=== PATIENT | male | born 1950 | race Caucasian/White ===

== ENCOUNTER 2018-04-22 10:02 | Inpatient (IN) | payer MEDICARE ==
[2018-04-22] VITALS (7 sets, daily range): BP systolic 185–214; BP diastolic 96–101; PULSE 59–71; RESP 16–20; TEMP 97.5–98.6; O2SAT 92–100
[~2018-04-22] VITALS: Ht 175.3 cm; Wt 90.8 kg
[~2018-04-22 10:02] MED LIST: CLOP75 PO
[2018-04-22] MEDS ORDERED: MORPHINE SULFATE 4 MG/ML INJ IV PUSH PRN (10:30)
[2018-04-22] MEDS ORDERED: ACETAMINOPHEN 325 MG TAB PO PRN (10:30)
[2018-04-22] MEDS ORDERED: RESP: ALBUTEROL 2.5 MG/3 ML NEB (PRN) NEB (10:30)
[2018-04-22] MEDS ORDERED: AMLO5TAB2 PO (11:04)
[2018-04-22] MEDS ORDERED: LISI10TA3 PO (11:04)
[2018-04-22] MEDS ORDERED: PIOG30TA4 PO (11:04)
[2018-04-22] MEDS ORDERED: METF500T PO (11:04)
[2018-04-22] MEDS: SODIUM CHLOR 0.45% 1000 ML IV SCH ×2 (11:30→16:51)
[2018-04-22] MEDS ORDERED: ceFAZolin 2 GM PREMIX 50 ML IV SCH (11:30)
[2018-04-22 11:54] LABS: AUTOMATED NEUTROPHIL # 5.5 TH/MM3 (1.8-7.7); BASOPHIL % 0.3 % (0.0-2.0); EOSINOPHIL # 0.1 TH/MM3 (0-0.4); EOSINOPHIL % 1.3 % (0.0-4.0); HEMATOCRIT 44.6 % (39.0-51.0); HEMOGLOBIN 15.1 GM/DL (13.0-17.0); LYMPH % 12.3 % (9.0-44.0); LYMPHOCYTE # 0.9 TH/MM3 (1.0-4.8); MEAN CORPUSCULAR HEMOGLOBIN 30.6 PG (27.0-34.0); MEAN PLATELET VOLUME 7.5 FL (7.0-11.0); MONO % 10.1 % (0.0-8.0); MONOCYTE # 0.7 TH/MM3 (0-0.9); PLATELET COUNT 186 TH/MM3 (150-450); RED BLOOD COUNT 4.95 MIL/MM3 (4.50-5.90); RED CELL DISTRIBUTION WIDTH 13.4 % (11.6-17.2); WHITE BLOOD COUNT 7.3 TH/MM3 (4.0-11.0)
[2018-04-22 12:06] LABS: PROTHROMBIN TIME - PATIENT 10.4 SEC (9.8-11.6)
[2018-04-22 12:17] LABS: BICARBONATE 27.8 MEQ/L (21.0-32.0); CALCIUM 8.4 MG/DL (8.5-10.1); CREATININE 0.71 MG/DL (0.60-1.30)
[2018-04-22] MEDS ORDERED: MIDAZOLAM HCL 2 MG/2 ML VIAL ONE (12:47)
--- NOTE | 2018-04-22 13:10 | HHI.HP ---
[facility] Service Neurosurgery Primary Care Physician Candace Abdullahi D.O. History of Present Illness Mr. Alvarez is a 67 year old male who was previously evaluated in neurosurgical evaluation at the request of Neurologist Dr. Yuri Jenkins for evaluation of Normal Pressure Hydrocephalus. Mr. Alvarez suffers from poor gait and balance. He is a chronic heavy drinker and drinks 8-12 beers daily. However he was previously walking well without difficulties despite his heavy drinking. He denies headaches, vomiting, vision changes, seizures. His MRI showed evidence of hydrocephalus. Mr. 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 He denies currently shoulder pain. MRI Brain from [facility] 02/13/18 was reviewed and showed ventricular dilation disproportionate to the extra-axial space suggestive of NPH. He presents today for placement of lumbar drain. He apparently also suffered a fall, he has left periorbital ecchymoses. He doesn't remember how he fell. Review of Systems Respiratory: DENIES: Apneas, Hemoptysis, Shortness of breath Cardiovascular: DENIES: Chest pain Gastrointestinal: DENIES: Abdominal pain, Nausea, Vomiting Neurologic: COMPLAINS OF: Abnormal gait, Localized weakness, Poor Balance, DENIES: Seizures Past Family Social History Allergies: Coded Allergies: No Known Allergies (Verified Allergy, Mild, 09/14/09) Past Medical History Coronary Artery Disease History of prior Myocardial Infarction Diabetes Chronic right hand contracture Etoh abuse Past Surgical History CABG 2008 Reported Medications amLODIPine 5 mg tablet lisinopril 10 mg tablet metFORMIN 500 mg tablet pioglitazone 30 mg tablet Active Ordered Medications Current Medications Medications (Trade) Dose Ordered Sig/Roberto Route PRN Reason Start Time Stop Time Status Last Admin Dose Admin Docusate Sodium (Colace) 100 mg BID PO 04/22/18 21:00 Pantoprazole Sodium (Protonix) 40 mg DAILY PO 04/23/18 09:00 Acetaminophen/ Hydrocodone Bitart ([place] 10-325 Mg) 1 tab Q4H PRN PO PAIN SCALE 1 TO 5 04/22/18 10:30 Morphine Sulfate (Morphine Inj) 2 mg Q2H PRN IV PUSH PAIN SCALE 1 TO 6 04/22/18 10:30 Acetaminophen (Tylenol) 650 mg Q4H PRN PO TEMPERATURE > 101.5 F 04/22/18 10:30 Albuterol Sulfate (Albuterol Neb) 2.5 mg Q4HR NEB PRN NEB WHEEZING 04/22/18 10:30 Sodium Chloride 1,000 ml @ 30 mls/hr Q24H IV 04/22/18 11:30 Cefazolin Sodium/ Dextrose 50 ml @ 100 mls/hr MAGNETIC TESTING TECHNICIAN IV 04/22/18 11:30 04/25/18 11:29 Family History reviewed, does not contribute to current medical problem Social History Heavy Alcohol Use, 8-12 beers daily Never smoker No illicit drug abuse Physical Exam Vital Signs Vital Signs Date Time Temp Pulse Resp B/P (MAP) Pulse Ox O2 Delivery O2 Flow Rate FiO2 04/22/18 11:32 92 Room Air 04/22/18 11:32 98.0 66 18 185/97 (126) 92 Physical Exam Patient is a 67-year-old male. General: Mr. Alvarez is in no obvious distress during examination. Neuro: Awake, alert and oriented to person, place, not to time. Speech is clear. Lumbar drain in place, clear CSF in reservoir. Cranial nerve examination: pupils equal, round, and reactive to light. Extra- ocular movements are intact with normal convergence. Facial motor and sensory function are normal and symmetrical. Gross hearing is intact, bilaterally, to finger rub. The uvula is midline and elevates symmetrically with the soft palate. Sternocleidomastoid and deltoid muscles have normal and symmetrical strength. Other cranial nerves are intact. HEENT: Normocephalic, atraumatic. Left periorbital bruising. Gross hearing intact bilaterally. Nonicteric sclera. Neck: soft, supple Musculoskeletal: Lower extremity peripheral edema. Right hand chronic contracture. 5/5 in all muscle groups of both upper extremities including deltoid, biceps, triceps and left chef instructor, 4/5 right chef instructor limited exam due to contracture, minimal right finger movements. In the lower extremities, strength is 5/5 in both iliopsoas, quadriceps, hamstrings, tibialis anterior, gastrocnemius. Sensory examination is intact light touch in both the upper and lower extremities Deep tendon reflexes are 1+ biceps, triceps, and brachioradialis, bilaterally, in the upper extremities. In the lower extremities, the patellar and Achilles are 1+, bilaterally. There is a bilateral plantar flexion response. Hoffmanns sign is negative. There is no clonus. Cerebellar: intact finger to nose bilaterally Gait: when examined in clinic gait is broad based, loss of heel strikes, slight bent forward posture, ataxic. Lungs: clear, nonlabored breathing, no wheezing Heart: regular rate and rhythm Skin: warm and dry, no cyanosis. Hyperpigmentation in lower legs. Laboratory Laboratory Tests Test 04/22/18 11:30 White Blood Count 7.3 Red Blood Count 4.95 Hemoglobin 15.1 Hematocrit 44.6 Mean Corpuscular Volume 90.0 Mean Corpuscular Hemoglobin 30.6 Mean Corpuscular Hemoglobin Concent 34.0 Red Cell Distribution Width 13.4 Platelet Count 186 Mean Platelet Volume 7.5 Neutrophils (%) (Auto) 76.0 Lymphocytes (%) (Auto) 12.3 Monocytes (%) (Auto) 10.1 Eosinophils (%) (Auto) 1.3 Basophils (%) (Auto) 0.3 Neutrophils # (Auto) 5.5 Lymphocytes # (Auto) 0.9 Monocytes # (Auto) 0.7 Eosinophils # (Auto) 0.1 Basophils # (Auto) 0.0 CBC Comment DIFF FINAL Differential Comment Prothrombin Time 10.4 Prothromb Time International Ratio 1.0 Activated Partial Thromboplast Time 26.7 Blood Urea Nitrogen 5 Creatinine 0.71 Random Glucose 134 Calcium Level 8.4 Sodium Level 134 Potassium Level 4.0 Chloride Level 99 Carbon Dioxide Level 27.8 Anion Gap 7 Estimat Glomerular Filtration Rate 110 Result Diagram: 04/22/18 1130 04/22/18 1130 Caprini VTE Risk Assessment Caprini VTE Risk Assessment: No/Low Risk (score <= 1) VTE Pharm Contraindication: Epidural catheter Caprini Risk Assessment Model Point Value = 1 Point Value = 2 Point Value = 3 Point Value = 5 Age 41-60 Minor surgery BMI > 25 kg/m2 Swollen legs Varicose veins or History of unexplained or recurrent spontaneous Oral contraceptives or hormone replacement Sepsis (< 1 month) Serious lung disease, including pneumonia (< 1 month) Abnormal pulmonary function Acute myocardial infarction Congestive heart failure (< 1 month) History of inflammatory bowel disease Medical patient at bed rest Age 61-74 Arthroscopic surgery Major open surgery (> 45 min) Laparoscopic surgery (> 45 min) Malignancy Confined to bed (> 72 hours) Immobilizing plaster cast Central venous access Age >= 75 History of VTE Family history of VTE Factor V Leiden Prothrombin [id number] Lupus anticoagulant Anticardiolipin antibodies Elevated serum homocysteine Heparin-induced thrombocytopenia Other congenital or acquired thrombophilia Stroke (< 1 month) Elective arthroplasty Hip, pelvis, or leg fracture Acute spinal cord injury (< 1 month) Prophylaxis Regimen Total Risk Factor Score Risk Level Prophylaxis Regimen 0-1 Low Early ambulation 2 Moderate Order ONE of the following: *Sequential Compression Device (SCD) *Heparin 5000 units SQ BID 3-4 Higher Order ONE of the following medications: *Heparin 5000 units SQ TID *Enoxaparin/Lovenox 40 mg SQ daily (WT < 150 kg, CrCl > 30 mL/min) *Enoxaparin/Lovenox 30 mg SQ daily (WT < 150 kg, CrCl > 10-29 mL/min) *Enoxaparin/Lovenox 30 mg SQ BID (WT < 150 kg, CrCl > 30 mL/min) AND/OR *Sequential Compression Device (SCD) 5 or more Highest Order ONE of the following medications: *Heparin 5000 units SQ TID (Preferred with Epidurals) *Enoxaparin/Lovenox 40 mg SQ daily (WT < 150 kg, CrCl > 30 mL/min) *Enoxaparin/Lovenox 30 mg SQ daily (WT < 150 kg, CrCl > 10-29 mL/min) *Enoxaparin/Lovenox 30 mg SQ BID (WT < 150 kg, CrCl > 30 mL/min) AND *Sequential Compression Device (SCD) Assessment and Plan Assessment and Plan NPH: Mr. Alvarez presents today for trial of lumbar drain with CSF drainage. PT gait evaluation prior to drain placement. He will be evaluated for any improvement in his gait and/or NPH symptoms. PT daily gait evaluation Chronic Etoh use, start Thiamine, FA, MV. Provide 1 beer with meals. Prophylaxis: Protonix for GI prophylaxis. DVT prophylaxis: SCDs and TEDs. Non chemical prophylaxis contraindicated due to epidural catheter. Respiratory: IS every hour, breathing treatments with nebulizers prn Nutrition: Heart Healthy Diet Diabetes: Holding oral medications. SS with insulin. Will defer further management to Medicine. Hypertension: resume home meds Amlodipine and Lisinopril. Monitor blood pressure. Maryse Gutiérrez Apr 22, 2018 13:10
[2018-04-22] MEDS ORDERED: GLUCAGON 1 MG/ML VIAL OTHER PRN (13:15)
[2018-04-22] MEDS ORDERED: DEXTROSE 50% IN WATER 50 ML VIAL(D50) IV PUSH PRN (13:15)
[2018-04-22 13:55] LABS: ALBUMIN 3.3 GM/DL (3.4-5.0); AST (GOT) 25 U/L (15-37); BICARBONATE 25.7 MEQ/L (21.0-32.0); BLOOD UREA NITROGEN 5 MG/DL (7-18); CHLORIDE 98 MEQ/L (98-107); CREATININE 0.74 MG/DL (0.60-1.30); GLOMERULAR FILTRATION RATE 105 ML/MIN (>89); GLUCOSE,RANDOM 134 MG/DL (74-106); SODIUM (NA) 133 MEQ/L (136-145)
[2018-04-22 13:56] LABS: ALT (GPT) 24 U/L (12-78)
[2018-04-22 13:58] LABS: ALKALINE PHOSPHATASE 80 U/L (45-117); TOTAL BILIRUBIN ADULT 0.9 MG/DL (0.2-1.0); TOTAL PROTEIN 7.1 GM/DL (6.4-8.2)
--- NOTE | 2018-04-22 14:23 | PD.RAD ---
Post Procedure Progress Note Procedure Date: Apr 22, 2018 Supervising Radiologist: Lucio Tse Proceduralist/Assist: Ana Mcbride RT(R)(CV) Anesthesia: Conscious Sedation Plan of Activity Patient to Unit: ROPU Patient Condition: Good See PACS Report for procedural detail/treatment Lucio Tse MD Apr 22, 2018 14:23
[2018-04-22] MEDS ORDERED: ONDANSETRON HCL 4 MG/2 ML VIAL ONE (14:29)
[2018-04-22] MEDS ORDERED: ENALAPRILAT 2.5 MG/2 ML VIAL ONE (14:33)
[2018-04-22 14:56] LABS: TOTAL PROTEIN,CSF 61.2 MG/DL (15.0-45.0)
--- NOTE | 2018-04-22 15:05 | MB ---
cc: Yvette Wang MD DATE: 04/22/2018 DATE OF : 1950 REASON FOR CONSULTATION: NPH. HISTORY OF PRESENT ILLNESS: This is a 67-year-old man seen by my partner, Dr. Jenkins, for NPH evaluation, sent to Neurosurgery for evaluation. He is status post LP drain by Interventional Radiology. He was initially assessed for poor gait and balance, has been having falls. MRI of the brain per reports showed that he had what looked like hydrocephalus. He does have a history of heavy drinking, 8-12 beers a day, compliance issues. Unknown as far as his other medications. He was seen by PT pre-drain and now he is just back in the recovery area waiting for his room. I believe he will be going to room 1525. PAST MEDICAL HISTORY: History of heart disease, ID, diabetes, chronic right hand contracture, ethanol abuse. He has had a bypass in 2008. HOME MEDICINES: 1. Amlodipine 5 mg. 2. Lisinopril 10 mg. 3. Metformin 500 mg. 4. Pioglitazone 30 mg. PHYSICAL EXAMINATION: GENERAL: He is sleepy, arousable. VITAL SIGNS: Blood pressure 185/97, temperature 98, pulse 66. NEUROLOGICAL EXAMINATION: He is oriented to himself, knew he was at [place] after some coaxing, but thought he was in a room in a doctor's office. His speech is fluent otherwise. He does have a left ecchymotic area over his eye from a fall, but his extraocular muscles are intact. Motor-curtis he moves everything, but strength testing is limited due to recent drain placed. DTRs 1+. Toes withdrawal. Gait I am going to defer to PT at this point in time. IMPRESSION. Normal pressure hydrocephalus status post lumbar drain. Recommend daily physical therapy assessment. If he improves and his gait is near normal, at that point certainly the shunt will be placed. I would restart his antihypertensive medicines, watch him for withdrawal. Thiamine, folic acid, vitamins certainly but he may need Ativan or Librium. Thank you for asking me to see the patient. Please call with any questions or concerns. He will followup as an outpatient with Dr. Jenkins. MD SULEMAN Pereira/CHARISSA , 02:32 PM , 03:04 PM
[2018-04-22] MEDS ORDERED: LORazepam 1 MG TAB PO PRN (15:15)
[2018-04-22] MEDS ORDERED: LORazepam 2 MG TAB PO PRN (15:15)
[2018-04-22] MEDS ORDERED: FLUMAZENIL 0.5 MG/5 ML VIAL IV PUSH PRN (15:15)
[2018-04-22] MEDS ORDERED: ONDANSETRON HCL 4 MG/2 ML VIAL IV PUSH ONE (15:15)
[2018-04-22] MEDS ORDERED: LORazepam 2 MG/ML VIAL IV PUSH PRN ×4 (15:15)
[2018-04-22] MEDS ORDERED: cloNIDine HCL 0.1 MG TAB PO ONE (15:15)
[2018-04-22] MEDS ORDERED: ENALAPRILAT 1.25 MG/ML VIAL IV PUSH ONE (15:15)
[2018-04-22 15:20] LABS: BILIRUBIN, URINE NEG (NEG); BLOOD, URINE NEG (NEG); GLUCOSE,URINE NEG (NEG); KETONE, URINE NEG (NEG); NITRITE,URINE NEG (NEG); URINE COLOR YELLOW (YELLW/STRAW); URINE LEUKOCYTE ESTERASE NEG (NEG)
--- NOTE | 2018-04-22 15:23 | PD.CONS ---
[facility] Request[facility] By Maryse Gutiérrez Reason for Consult Medical management Primary Care Physician Candace Abdullahi D.O. Diagnoses: (1) Hypertension (2) Diabetes mellitus (3) Hyponatremia (4) NPH (normal pressure hydrocephalus) History of Present Illness The patient is a 67-year-old male recently diagnosed with normal pressure hydrocephalus who presented today for lumbar drain placement per neurosurgery request. He reports urinary incontinence. He denies headache or vision changes. He denies chest pain or dyspnea. He states that he apparently fell 2 days ago. He states that he woke up with bruising on the left side of his face. He does not know what happened. He reports nausea, but denies vomiting. Review of Systems Constitutional: DENIES: Fever, Chills, Night Sweats Eyes: DENIES: Blurred vision, Vision loss Ears, nose, mouth, throat: DENIES: Hearing loss Respiratory: DENIES: Cough, Wheezing, Sputum production, Shortness of breath Cardiovascular: DENIES: Chest pain, Palpitations, Dyspnea on Exertion, Lower Extremity Edema Gastrointestinal: COMPLAINS OF: Nausea, DENIES: Abdominal pain, Constipation, Diarrhea, Vomiting Genitourinary: COMPLAINS OF: Urinary incontinence, DENIES: Urinary frequency, Urgency, Hematuria, Dysuria, Nocturia Musculoskeletal: DENIES: Joint pain, Muscle aches Integumentary: DENIES: Pruritus, Rash Hematologic/lymphatic: DENIES: Bruising Neurologic: DENIES: Headache Past Family Social History Allergies: Coded Allergies: No Known Allergies (Verified Allergy, Mild, 09/14/09) Past Medical History Diabetes mellitus Hypertension Coronary artery disease Past Surgical History CABG Tonsillectomy Reported Medications The patient states that he has not been taking any of his medications consistently. He states that it has been quite a while since he has taken any medications. He is supposed to be taking amlodipine 5 mg daily, lisinopril 10 mg daily, metformin 500 mg twice daily, and pioglitazone 30 mg daily. Family History The patient denies significant family medical history. Social History Drinks "at least a 12 pack a day". Denies tobacco or illicit drug use. Physical Exam Vital Signs Vital Signs Date Time Temp Pulse Resp B/P (MAP) Pulse Ox O2 Delivery O2 Flow Rate FiO2 04/22/18 11:32 92 Room Air 04/22/18 11:32 98.0 66 18 185/97 (126) 92 Physical Exam GENERAL: This is a well-nourished, well-developed patient, in no apparent distress. SKIN: No rashes, ecchymoses or lesions. Cool and dry. HEAD: Atraumatic. Normocephalic. No temporal or scalp tenderness. EYES: Pupils equal round and reactive. Extraocular motions intact. No scleral icterus. No injection or drainage. ENT: Nose without bleeding, purulent drainage or septal hematoma. Throat without erythema, tonsillar hypertrophy or exudate. Uvula midline. Airway patent. NECK: Trachea midline. No JVD or lymphadenopathy. Supple, nontender, no meningeal signs. CARDIOVASCULAR: Regular rate and rhythm without murmurs, gallops, or rubs. RESPIRATORY: Clear to auscultation. Breath sounds equal bilaterally. No wheezes , rales, or rhonchi. GASTROINTESTINAL: Abdomen soft, non-tender, nondistended. No hepato-splenomegaly , or palpable masses. No guarding. MUSCULOSKELETAL: Extremities without clubbing, cyanosis, or edema. No joint tenderness, effusion, or edema noted. No calf tenderness. Negative Homans sign bilaterally. NEUROLOGICAL: Awake and alert. Cranial nerves II through XII intact. Motor and sensory grossly within normal limits. Five out of 5 muscle strength in all muscle groups. Normal speech. Laboratory Laboratory Tests Test 04/22/18 11:30 04/22/18 13:45 04/22/18 14:00 White Blood Count 7.3 Red Blood Count 4.95 Hemoglobin 15.1 Hematocrit 44.6 Mean Corpuscular Volume 90.0 Mean Corpuscular Hemoglobin 30.6 Mean Corpuscular Hemoglobin Concent 34.0 Red Cell Distribution Width 13.4 Platelet Count 186 Mean Platelet Volume 7.5 Neutrophils (%) (Auto) 76.0 Lymphocytes (%) (Auto) 12.3 Monocytes (%) (Auto) 10.1 Eosinophils (%) (Auto) 1.3 Basophils (%) (Auto) 0.3 Neutrophils # (Auto) 5.5 Lymphocytes # (Auto) 0.9 Monocytes # (Auto) 0.7 Eosinophils # (Auto) 0.1 Basophils # (Auto) 0.0 CBC Comment DIFF FINAL Differential Comment Prothrombin Time 10.4 Prothromb Time International Ratio 1.0 Activated Partial Thromboplast Time 26.7 Blood Urea Nitrogen 5 Creatinine 0.74 Random Glucose 134 Total Protein 7.1 Albumin 3.3 Calcium Level 9.0 Alkaline Phosphatase 80 Aspartate Amino Transf (AST/SGOT) 25 Alanine Aminotransferase (ALT/SGPT) 24 Total Bilirubin 0.9 Sodium Level 133 Potassium Level 4.1 Chloride Level 98 Carbon Dioxide Level 25.7 Anion Gap 9 Estimat Glomerular Filtration Rate 105 CSF Glucose 72 CSF Total Protein 61.2 Date/Time Source Procedure Growth Status 04/22/18 13:45 Cerebral Spinal Fluid Lumbar Puncture Gram Stain Pending Received 04/22/18 13:45 Cerebral Spinal Fluid Lumbar Puncture CSF Culture Pending Received Result Diagram: 04/22/18 1130 04/22/18 1130 Assessment and Plan Assessment and Plan 1. Normal pressure hydrocephalus: Status post lumbar drain placement. Management per neurosurgery. Neurology consulted. Continue physical therapy. 2. Alcohol abuse: Concern for withdrawal. [facility] protocol. Thiamine, folic acid , multivitamin. 3. Hypertension: Poorly controlled. Blood pressure may be elevated secondary to alcohol withdrawal. He states that he has been noncompliant with his medications. Restart amlodipine, lisinopril. Vasotec and clonidine as needed. 4. Coronary artery disease: Currently asymptomatic. Reportedly had CABG 1 year ago. Not on medications The patient has been noncompliant. 5. Recent fall, head injury: Patient states that he does not recall what happened, but woke up on the floor with periorbital bruising. Check head CT. 6. Mild hyponatremia: Likely secondary to chronic alcohol abuse. Monitor labs. 7. DVT prophylaxis: SCDs, BANDAR hose. Avoid chemical prophylaxis secondary to lumbar drain placement. Armando Oscar MD Apr 22, 2018 15:23
[2018-04-22 15:28] LABS: SUPERNATE COLOR TUBE #1 CLEAR (CLEAR); VOLUME TUBE # 1 1.8 ML
[2018-04-22 15:42] LABS: CSF LYMPHOCYTES 93 %; CSF NEUTROPHILS 7 %
[2018-04-22 15:43] LABS: RBC TUBE #4 217 /MM3; WBC TUBE #4 1 /MM3 (0-10)
[2018-04-22] MEDS ORDERED: amLODIPine BESYLATE 5 MG TAB PO ONE (16:00)
--- NOTE | 2018-04-22 16:46 | RADRPT ---
EXAM DATE: 04/22/2018 2:44 PM EDT AGE/SEX: 67 years / Male INDICATIONS: Patient with history of normal pressure hydrocephalus in need of lumbar drain placement . CLINICAL DATA: This is the patient's initial encounter. Patient reports that signs and symptoms have been present for > 1 year and indicates a pain score of 0/10. Location: , Laterality: MEDICAL/SURGICAL HISTORY: Hypertension. Diabetes. ETHD.CAD.RT hand contractive.Shoulder injury .[place]. CABG. RT knee surgery. COMPARISON: No prior exams available for comparison. FLUORO TIME (min): 1.25 IMAGE SERIES: 5 ACCESS SITE: L3-4 SEDATION TIME (min): 30 LUMBAR PUNCTURE TIME: 1345 hours FLUID: Total volume of 11 cc of clear fluid was removed. Fluid was sent to lab for ordered studies. MEDICATION(S): 2mg midazolam (Versed) IV 100mcg fentanyl (Sublimaze) IV DEVICE(S): 5 Persian lumbar drain catheter . . PROCEDURE: 1. Fluoroscopically guided lumbar drain placement. 2. Conscious sedation with continuous EKG and oximetry monitoring. The risks, benefits and alternatives to the procedure were explained and verbal and written consent w as obtained. The site was prepped in sterile fashion. Full sterile technique was used, including ca p, mask, sterile gloves and gown and a large sterile sheet. Hand hygiene and 2% chlorhexidine and/or betadine/alcohol prep was utilized per protocol for cutaneous antisepsis. The skin and subcutaneous tissues were infiltrated with local anesthetic solution. With fluoroscopic guidance the lumbar thecal sac was punctured with a 14 gauge Touhy needle and a lum bar drain was placed with its tip at the level as described above and the catheter was sutured in jose angel ce. CSF was identified returning from the catheter at the termination of the procedure. Conscious sedation was performed with the prescribed dosages and duration as above in the presence of an independent trained radiology nurse to assist in the monitoring of the patient. EKG and oximetry remained stable throughout the procedure. The patient tolerated the procedure well and there were n o complications. The patient was sent to post anesthesia recovery in stable condition. CONCLUSION: 1. Uncomplicated lumbar drain placement as above. Electronically signed by: Lucio Tse MD 04/22/2018 4:45 PM EDT
[2018-04-22] MEDS: THIAMINE HCL 100 MG TAB PO SCH (16:51)
[2018-04-22] MEDS: MULTIVITAMINS/MINERALS THERAPEUTIC TAB PO SCH (16:51)
[2018-04-22] MEDS: FOLIC ACID 1 MG TAB PO SCH (16:51)
[2018-04-22] MEDS: ENALAPRILAT 1.25 MG/ML VIAL IV PUSH PRN (20:45)
[2018-04-22] MEDS: DOCUSATE SODIUM 100 MG CAP PO SCH (20:45)
[2018-04-22] MEDS: ACETAMINOPHEN/HYDROcodone 325 MG/10 MG TAB PO PRN (20:45)
[2018-04-23] VITALS (7 sets, daily range): BP systolic 122–207; BP diastolic 67–111; PULSE 57–73; RESP 16–18; TEMP 97.3–98.6; O2SAT 96–99
[2018-04-23] MEDS ORDERED: cloNIDine HCL 0.1 MG TAB PO ONE (01:30)
[2018-04-23] MEDS: ACETAMINOPHEN/HYDROcodone 325 MG/10 MG TAB PO PRN ×3 (01:43→16:41)
[2018-04-23] MEDS ORDERED: PROCHLORPERAZINE INJ 10 MG/2 ML VIAL IV PUSH PRN (02:45)
[2018-04-23] MEDS: ENALAPRILAT 1.25 MG/ML VIAL IV PUSH PRN ×2 (03:45→19:56)
[2018-04-23] MEDS: MULTIVITAMINS/MINERALS THERAPEUTIC TAB PO SCH (08:33)
[2018-04-23] MEDS: LISINOPRIL 10 MG TAB PO SCH (08:33)
[2018-04-23] MEDS: PANTOPRAZOLE SOD 40 MG DELAYED RELEASE TAB PO SCH (08:33)
[2018-04-23] MEDS: FOLIC ACID 1 MG TAB PO SCH (08:33)
[2018-04-23] MEDS: DOCUSATE SODIUM 100 MG CAP PO SCH ×2 (08:33→20:48)
[2018-04-23] MEDS: THIAMINE HCL 100 MG TAB PO SCH (08:34)
[2018-04-23] MEDS: amLODIPine BESYLATE 5 MG TAB PO SCH (08:34)
[2018-04-23] MEDS: INSULIN ASPART SUPPLEMENTAL SCALE SQ SCH ×3 (12:32→20:49)
--- NOTE | 2018-04-23 13:03 | HHI.PR ---
Subjective Remarks Follow up hypertension, diabetes. The patient states that his back is sore, but has no other complaints at this time. Denies headache, vision changes, chest pain, dyspnea. Nausea has resolved. Objective Vitals Vital Signs Date Time Temp Pulse Resp B/P (MAP) Pulse Ox O2 Delivery O2 Flow Rate FiO2 04/23/18 11:58 98.0 63 18 122/67 (85) 98 04/23/18 08:00 98.4 57 16 160/79 (106) 96 04/23/18 04:49 66 138/71 (93) 04/23/18 04:00 97.3 67 18 195/111 (139) 97 04/23/18 00:12 98.0 73 18 207/98 (134) 98 04/22/18 20:00 98.6 70 18 213/100 (137) 94 04/22/18 17:15 97.5 62 20 198/98 (131) 100 04/22/18 15:25 63 16 205/101 (135) 97 04/22/18 14:55 59 18 192/99 (130) 97 04/22/18 14:25 65 18 214/97 (136) 95 04/22/18 14:10 97.6 71 16 208/96 (133) 96 I/O 04/22/18 04/22/18 04/22/18 04/23/18 04/23/18 04/23/18 07:00 15:00 23:00 07:00 15:00 23:00 Intake Total 240 ml Output Total 915 ml 1280 ml Balance -915 ml -1040 ml Intake Oral 240 ml Output Urine Total 875 ml 1200 ml Drainage Total 40 ml 80 ml Result Diagram: 04/22/18 1130 04/22/18 1130 Imaging Last Impressions Lumbar Puncture Fluoroscopy 04/22/18 0000 Signed Impressions: CONCLUSION: 1. Uncomplicated lumbar drain placement as above. Objective Remarks General: No acute distress. HEENT: Left-sided periorbital ecchymosis. Heart: Regular rate and rhythm. No murmur. Lungs: Clear to auscultation bilaterally. No wheezes, rales, or rhonchi. Breathing is nonlabored. Abdomen: Soft, nontender, nondistended. Extremities: No lower extremity edema. Psych: Alert and oriented. Neuro: Normal speech. No focal deficits noted. Procedures 04/22/18 lumbar drain placement Urinary Catheter: Yes Assessment to: Continue Ayon insert reason: Surgical/Invasive Proced Date of Insertion: Apr 22, 2018 Vascular Central Line Catheter: No A/P Problem List: (1) Hypertension ICD Code: I10 - Essential (primary) hypertension (2) Diabetes mellitus ICD Code: E11.9 - Type 2 diabetes mellitus without complications (3) Hyponatremia ICD Code: E87.1 - Hypo-osmolality and hyponatremia (4) NPH (normal pressure hydrocephalus) ICD Code: G91.2 - (Idiopathic) normal pressure hydrocephalus Assessment and Plan 1. Normal pressure hydrocephalus: Status post lumbar drain placement. Management per neurosurgery. Neurology consulted. Continue physical therapy. 2. Alcohol abuse: No signs of withdrawal at this time. [facility] protocol. Thiamine, folic acid, multivitamin. One beer with each tray. 3. Hypertension: Control improved. He states that he has been noncompliant with his medications. Continue amlodipine, lisinopril. Vasotec and clonidine as needed. 4. Coronary artery disease: Currently asymptomatic. Reportedly had CABG 1 year ago. Not on medications The patient has been noncompliant. 5. Recent fall, head injury: Patient states that he does not recall what happened, but woke up on the floor with periorbital bruising. Check head CT. 6. Mild hyponatremia: Likely secondary to chronic alcohol abuse. 7. Diabetes mellitus: Monitor Accu-Cheks and cover with sliding scale insulin. Metformin, pioglitazone on hold. 8. DVT prophylaxis: SCDs, BANDAR moy. Avoid chemical prophylaxis secondary to lumbar drain placement. Armando Oscar MD Apr 23, 2018 13:03
--- NOTE | 2018-04-23 16:59 | HHI.NSPN ---
(Maryse Gutiérrez) Note Status Status: Progress Note (Maryse Gutiérrez) Interval History Interval History Mr. Alvarez is a 67 year old male who was previously evaluated in neurosurgical evaluation at the request of Neurologist Dr. Yuri Jenkins for evaluation of Normal Pressure Hydrocephalus. Mr. Alvarez suffers from poor gait and balance. He is a chronic heavy drinker and drinks 8-12 beers daily. However he was previously walking well without difficulties despite his heavy drinking. He denies headaches, vomiting, vision changes, seizures. His MRI showed evidence of hydrocephalus. Mr. 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 He denies currently shoulder pain. MRI Brain from [facility] 02/13/18 was reviewed and showed ventricular dilation disproportionate to the extra-axial space suggestive of NPH. He presents today for placement of lumbar drain. He apparently also suffered a fall, he has left periorbital ecchymoses. He doesn't remember how he fell. 04/23: currently flat being drained, nursing reports confused overnight. awaiting PT evaluation. (Maryse Gutiérrez) Labs, Micro, & Vital Signs Results Date Time Temp Pulse Resp B/P (MAP) Pulse Ox O2 Delivery O2 Flow Rate FiO2 04/23/18 11:58 98.0 63 18 122/67 (85) 98 04/23/18 08:00 98.4 57 16 160/79 (106) 96 04/23/18 04:49 66 138/71 (93) 04/23/18 04:00 97.3 67 18 195/111 (139) 97 04/23/18 00:12 98.0 73 18 207/98 (134) 98 04/22/18 20:00 98.6 70 18 213/100 (137) 94 04/22/18 17:15 97.5 62 20 198/98 (131) 100 Constitutional Vital Signs Date Time Temp Pulse Resp B/P (MAP) Pulse Ox O2 Delivery O2 Flow Rate FiO2 04/23/18 11:58 98.0 63 18 122/67 (85) 98 04/23/18 08:00 98.4 57 16 160/79 (106) 96 04/23/18 04:49 66 138/71 (93) 04/23/18 04:00 97.3 67 18 195/111 (139) 97 04/23/18 00:12 98.0 73 18 207/98 (134) 98 04/22/18 20:00 98.6 70 18 213/100 (137) 94 04/22/18 17:15 97.5 62 20 198/98 (131) 100 (Maryse Gutiérrez) Review of Systems Constitutional: DENIES: Fever, Chills Neurologic: DENIES: Headache (Maryse Gutiérrez) Physical Exam Patient is a 67-year-old male. Currently flat in bed being drained. General: Mr. Alvarez is in no obvious distress during examination. Neuro: Awake, alert and oriented to person, place, not to time. Speech is clear. Lumbar drain in place, clear CSF in reservoir. Cranial nerve examination: pupils equal, round, and reactive to light. Extra- ocular movements are intact with normal convergence. Facial motor are normal and symmetrical. Other cranial nerves are intact. HEENT: Normocephalic, atraumatic. Left periorbital bruising. Gross hearing intact bilaterally. Nonicteric sclera. Neck: soft, supple Musculoskeletal: Lower extremity peripheral edema. Right hand chronic contracture. 5/5 in all muscle groups of both upper extremities including deltoid, biceps, triceps and left instructor product inspection, 4/5 right instructor product inspection limited exam due to contracture, minimal right finger movements. In the lower extremities, strength is 5/5. Cerebellar: intact finger to nose bilaterally Lungs: clear, nonlabored breathing, no wheezing Heart: regular rate and rhythm (Maryse Gutiérrez) General: Mr. Alvarez is in no obvious distress during examination. Neuro: Awake, alert and oriented to person, place, not to time. Speech is clear. Lumbar drain in place, clear CSF in reservoir. Cranial nerve examination: pupils equal, round, and reactive to light. Extra- ocular movements are intact with normal convergence. Facial motor are normal and symmetrical. Other cranial nerves are intact. HEENT: Normocephalic, atraumatic. Left periorbital bruising. Gross hearing intact bilaterally. Nonicteric sclera. Neck: soft, supple Musculoskeletal: Lower extremity peripheral edema. Right hand chronic contracture. 5/5 in all muscle groups of both upper extremities including deltoid, biceps, triceps and left instructor product inspection, 4/5 right instructor product inspection limited exam due to contracture, minimal right finger movements. In the lower extremities, strength is 5/5. Cerebellar: intact finger to nose bilaterally Lungs: clear, nonlabored breathing, no wheezing Heart: regular rate and rhythm (Ruben Hudson MD) Medications Current Medications Current Medications Medications (Trade) Dose Ordered Sig/Roberto Route PRN Reason Start Time Stop Time Status Last Admin Dose Admin Docusate Sodium (Colace) 100 mg BID PO 04/22/18 21:00 04/23/18 08:33 Pantoprazole Sodium (Protonix) 40 mg DAILY PO 04/23/18 09:00 04/23/18 08:33 Acetaminophen/ Hydrocodone Bitart (Poston 10-325 Mg) 1 tab Q4H PRN PO PAIN SCALE 1 TO 5 04/22/18 10:30 04/23/18 16:41 Morphine Sulfate (Morphine Inj) 2 mg Q2H PRN IV PUSH PAIN SCALE 1 TO 6 04/22/18 10:30 Acetaminophen (Tylenol) 650 mg Q4H PRN PO TEMPERATURE > 101.5 F 04/22/18 10:30 Albuterol Sulfate (Albuterol Neb) 2.5 mg Q4HR NEB PRN NEB WHEEZING 04/22/18 10:30 Sodium Chloride 1,000 ml @ 30 mls/hr Q24H IV 04/22/18 11:30 04/22/18 11:30 Cefazolin Sodium/ Dextrose 50 ml @ 100 mls/hr SPIRAL BINDER IV 04/22/18 11:30 04/25/18 11:29 04/22/18 13:15 Folic Acid (Folate) 1 mg DAILY PO 04/22/18 13:15 04/27/18 13:14 04/23/18 08:33 Thiamine HCl (Vitamin B1) 100 mg DAILY PO 04/22/18 13:15 04/23/18 08:34 Multivitamins/ Minerals Therapeutic (Theragran M Tab) 1 tab DAILY PO 04/22/18 13:15 04/27/18 13:14 04/23/18 08:33 Amlodipine Besylate (Norvasc) 5 mg DAILY PO 04/23/18 09:00 04/23/18 08:34 Lisinopril (Prinivil) 10 mg DAILY PO 04/23/18 09:00 04/23/18 08:33 Dextrose (D50w (Vial) Inj) 50 ml UNSCH PRN IV PUSH HYPOGLYCEMIA-SEE COMMENTS 04/22/18 13:15 Glucagon (Glucagon Inj) 1 mg UNSCH PRN OTHER HYPOGLYCEMIA-SEE COMMENTS 04/22/18 13:15 Enalaprilat (Vasotec Inj) 1.25 mg Q6H PRN IV PUSH SEE LABEL COMMENTS 04/22/18 14:45 04/23/18 03:45 Flumazenil (Romazicon Inj) 0.2 mg Q1M PRN IV PUSH SEE LABEL COMMENTS 04/22/18 15:15 Lorazepam (Ativan) 1 mg Q4H PRN PO CIWA 8 - 10 04/22/18 15:15 Lorazepam (Ativan Inj) 1 mg Q4H PRN IV PUSH CIWA 8 - 10 04/22/18 15:15 Lorazepam (Ativan) 2 mg Q2H PRN PO CIWA 11-14 04/22/18 15:15 Lorazepam (Ativan Inj) 2 mg Q2H PRN IV PUSH CIWA 11-14 04/22/18 15:15 Lorazepam (Ativan Inj) 2 mg Q1H PRN IV PUSH CIWA 15-20 04/22/18 15:15 Lorazepam (Ativan Inj) 2 mg Q15M PRN IV PUSH CIWA > 20 04/22/18 15:15 Prochlorperazine Edisylate (Compazine Inj) 10 mg Q6H PRN IV PUSH nausea 04/23/18 02:45 04/23/18 03:33 Insulin Aspart (NovoLOG SUPPLEMENTAL SCALE) 1 ACHS SLIDING SCALE SQ 04/23/18 12:00 04/23/18 12:32 (Maryse Gutiérrez) Current Medications Current Medications Docusate Sodium (Colace) 100 mg BID PO Last administered on 04/25/18at 09:00; Start 04/22/18 at 21:00; Stop 04/25/18 at 17:40; Status DC Pantoprazole Sodium (Protonix) 40 mg DAILY PO Last administered on 04/25/18at 09 :00; Start 04/23/18 at 09:00; Stop 04/25/18 at 17:40; Status DC Acetaminophen/ Hydrocodone Bitart (Poston 10-325 Mg) 1 tab Q4H PRN PO PAIN SCALE 1 TO 5 Last administered on 04/24/18 08:59; Start 04/22/18 at 10:30; Stop 04/25/18 at 17:40; Status DC Morphine Sulfate (Morphine Inj) 2 mg Q2H PRN IV PUSH PAIN SCALE 1 TO 6; Start 04/22/18 at 10:30; Stop 04/25/18 at 17:40; Status DC Acetaminophen (Tylenol) 650 mg Q4H PRN PO TEMPERATURE > 101.5 F; Start at 10:30; Stop 04/25/18 at 17:40; Status DC Albuterol Sulfate (Albuterol Neb) 2.5 mg Q4HR NEB PRN NEB WHEEZING; Start 04/22 at 10:30; Stop 04/25/18 at 17:40; Status DC Sodium Chloride 1,000 ml @ 30 mls/hr Q24H IV Last administered on 04/22/18 11 :30; Start 04/22/18 at 11:30; Stop 04/25/18 at 17:40; Status DC Cefazolin Sodium/ Dextrose 50 ml @ 100 mls/hr SPIRAL BINDER IV Last administered on 04/22/18at 13:15; Start 04/22/18 at 11:30; Stop 04/25/18 at 11:29; Status DC Fentanyl Citrate (fentaNYL INJ) 100 mcg STK-MED ONCE .ROUTE Last administered on 04/22/18 13:30; Start 04/22/18 at 12:47; Stop 04/22/18 at 12:48; Status DC Midazolam HCl (Versed Inj) 2 mg STK-MED ONCE .ROUTE Last administered on 13:30; Start 04/22/18 at 12:47; Stop 04/22/18 at 12:48; Status DC Folic Acid (Folate) 1 mg DAILY PO Last administered on 04/25/18at 09:00; Start 04/22/18 at 13:15; Stop 04/25/18 at 17:40; Status DC Thiamine HCl (Vitamin B1) 100 mg DAILY PO Last administered on 04/25/18at 09:01 ; Start 04/22/18 at 13:15; Stop 04/25/18 at 17:40; Status DC Multivitamins/ Minerals Therapeutic (Theragran M Tab) 1 tab DAILY PO Last administered on 04/25/18at 09:00; Start 04/22/18 at 13:15; Stop 04/25/18 at 17:40 ; Status DC Amlodipine Besylate (Norvasc) 5 mg DAILY PO Last administered on 04/24/18at 08: 59; Start 04/23/18 at 09:00; Stop 04/24/18 at 14:39; Status DC Lisinopril (Prinivil) 10 mg DAILY PO Last administered on 04/25/18at 09:00; Start 04/23/18 at 09:00; Stop 04/25/18 at 10:14; Status DC Dextrose (D50w (Vial) Inj) 50 ml UNSCH PRN IV PUSH HYPOGLYCEMIA-SEE COMMENTS; Start 04/22/18 at 13:15; Stop 04/25/18 at 17:40; Status DC Glucagon (Glucagon Inj) 1 mg UNSCH PRN OTHER HYPOGLYCEMIA-SEE COMMENTS; Start 04/22/18 at 13:15; Stop 04/25/18 at 17:40; Status DC Ondansetron HCl (Zofran Inj) 4 mg STK-MED ONCE .ROUTE Last administered on 04/22at 14:29; Start 04/22/18 at 14:29; Stop 04/22/18 at 14:30; Status DC Enalaprilat (Vasotec Inj) 2.5 mg STK-MED ONCE .ROUTE ; Start 04/22/18 at 14:33; Stop 04/22/18 at 14:34; Status DC Enalaprilat (Vasotec Inj) 1.25 mg Q6H PRN IV PUSH SEE LABEL COMMENTS Last administered on 04/24/18at 13:54; Start 04/22/18 at 14:45; Stop 04/25/18 at 17:40 ; Status DC Ondansetron HCl (Zofran Inj) 4 mg ONCE ONCE IV PUSH ; Start 04/22/18 at 15:15; Stop 04/22/18 at 15:16; Status DC Enalaprilat (Vasotec Inj) 1.25 mg ONCE ONCE IV PUSH Last administered on at 14:30; Start 04/22/18 at 15:15; Stop 04/22/18 at 15:16; Status DC Clonidine (Catapres) 0.1 mg ONCE ONCE PO Last administered on 04/22/18at 15:15 ; Start 04/22/18 at 15:15; Stop 04/22/18 at 15:16; Status DC Amlodipine Besylate (Norvasc) 5 mg ONCE ONCE PO Last administered on at 16:51; Start 04/22/18 at 16:00; Stop 04/22/18 at 16:01; Status DC Flumazenil (Romazicon Inj) 0.2 mg Q1M PRN IV PUSH SEE LABEL COMMENTS; Start at 15:15; Stop 04/25/18 at 17:40; Status DC Lorazepam (Ativan) 1 mg Q4H PRN PO CIWA 8 - 10; Start 04/22/18 at 15:15; Stop 04/25/18 at 17:40; Status DC Lorazepam (Ativan Inj) 1 mg Q4H PRN IV PUSH CIWA 8 - 10; Start 04/22/18 at 15: 15; Stop 04/25/18 at 17:40; Status DC Lorazepam (Ativan) 2 mg Q2H PRN PO CIWA 11-14; Start 04/22/18 at 15:15; Stop at 17:40; Status DC Lorazepam (Ativan Inj) 2 mg Q2H PRN IV PUSH CIWA 11-14; Start 04/22/18 at 15:15 ; Stop 04/25/18 at 17:40; Status DC Lorazepam (Ativan Inj) 2 mg Q1H PRN IV PUSH CIWA 15-20; Start 04/22/18 at 15:15 ; Stop 04/25/18 at 17:40; Status DC Lorazepam (Ativan Inj) 2 mg Q15M PRN IV PUSH CIWA > 20; Start 04/22/18 at 15:15 ; Stop 04/25/18 at 17:40; Status DC Clonidine (Catapres) 0.1 mg ONCE ONCE PO Last administered on 04/23/18at 01:43 ; Start 04/23/18 at 01:30; Stop 04/23/18 at 01:31; Status DC Prochlorperazine Edisylate (Compazine Inj) 10 mg Q6H PRN IV PUSH nausea Last administered on 04/23/18at 03:33; Start 04/23/18 at 02:45; Stop 04/25/18 at 17:40 ; Status DC Insulin Aspart (NovoLOG SUPPLEMENTAL SCALE) 1 ACHS SLIDING SCALE SQ Last administered on 04/25/18at 13:10; Start 04/23/18 at 12:00; Stop 04/25/18 at 17:40 ; Status DC Amlodipine Besylate (Norvasc) 10 mg DAILY PO Last administered on 04/25/18at 09: 00; Start 04/25/18 at 09:00; Stop 04/25/18 at 17:40; Status DC Amlodipine Besylate (Norvasc) 5 mg ONCE ONCE PO Last administered on at 15:07; Start 04/24/18 at 14:45; Stop 04/24/18 at 14:46; Status DC Lisinopril (Prinivil) 20 mg DAILY PO ; Start 04/26/18 at 09:00; Stop 04/26/18 at 09:00; Status DC Lisinopril (Prinivil) 10 mg ONCE ONCE PO Last administered on 04/25/18at 10:39 ; Start 04/25/18 at 10:15; Stop 04/25/18 at 10:17; Status DC (Ruben Hudson MD) Medical Decision Making MDM Remarks 67 y/o male s/p placement of lumbar drain for suspected Normal Pressure Hydrocephalus Diabetes Hypertension (Maryse Gutiérrez) Plan Plan Remarks await PT eval of gait cont current care medical management following, appreciate assistance (Maryse Gutiérrez) Attending Statement As above. Continue neuro checks. Continue drainage of cerebrospinal fluid via a lumbar drain. His family reports that his gait has improved with. He could be a potential candidate for placement of a ventriculoperitoneal shunt if he continues to improve He is at high risk of developing alcohol withdrawal. On protocol for prevention of DT's. Medical hospitalist information consultant Pulmonary. Continue aggressive pulmonary toilette, nasotracheal suction, and breathing treatments with nebulizers. Daily PT and OT Renal. Continue to monitor closely urine output, BUN and creatinine Endocrine. Continue to Monitor serial Acu checks and SSI as needed in detail ID continue to monitor for signs of infection Continue Protonix for stress ulcer prophylaxis Continue Asad hose and SCD's for DVT prophylaxis Further recommendations will be provided depending on the patient's clinical evaluation and follow up studies. The exam, history, and the medical decision-making described in the above note were completed with the assistance of the mid-level provider. I reviewed and agree with the findings presented. I attest that I had a [id number] encounter with the patient on the same day, and personally performed and documented my assessment and findings in the medical record. (Ruben Hudson MD) Maryse Gutiérrez Apr 23, 2018 16:58 Ruben Hudson MD Apr 25, 2018 19:19
--- NOTE | 2018-04-23 18:01 | RADRPT ---
EXAM DATE: 04/23/2018 5:35 PM EDT AGE/SEX: 67 years / Male INDICATIONS: Head trauma a few days ago CLINICAL DATA: This is the patient's subsequent encounter. Patient reports that signs and symptoms h ave been present for 2 days and indicates a pain score of 0/10. MEDICAL/SURGICAL HISTORY: Cardiovascular disease. Hypertension. Hypertension. None. RADIATION DOSE: 40.03 CTDI (mGy) COMPARISON: No prior exams available for comparison. TECHNIQUE: CT of the head without contrast. Using automated exposure control and adjustment of the mA and/or kV according to patient size, radiation dose was kept as low as reasonably achievable to ob tain optimal diagnostic quality images. DICOM format image data is available electronically for revi ew and comparison. FINDINGS: Cerebrum: There is an extra-axial left frontal hemorrhage seen over the superior left frontal lobe. This measures up to 9 mm in thickness but this thickness is likely accentuated secondary to the curva ture of the superior aspect of the skull. Significant underlying mass effect is not seen. The ventric les and cortical sulci are widened. The ventricles are widened out of proportion to the sulcal wideni ng. No evidence of midline shift, mass lesion, or acute infarction. Posterior Fossa: The cerebellum and brainstem are intact. The 4th ventricle is midline. The cerebe llopontine angle is unremarkable. Extracranial: The visualized portion of the orbits is intact. Skull: The calvaria is intact. No evidence of skull fracture. CONCLUSION: 1. Mild extra-axial left frontal hemorrhage thought to likely be a subdural hemorrhage. Significant underlying mass effect is not seen. 2. Underlying atrophy. The ventricles are widened at a proportion to the sulci which can suggest nor mal pressure hydrocephalus in the correct clinical situation. Electronically signed by: Lázaro Tirado MD 04/23/2018 6:00 PM EDT
[2018-04-24] VITALS: BP 172/96; PULSE 78; RESP 18; TEMP 98.1; O2SAT 96
[2018-04-24 04:00] VITALS: BP 196/96; PULSE 60; RESP 18; TEMP 98.3; O2SAT 97
[2018-04-24] MEDS: ENALAPRILAT 1.25 MG/ML VIAL IV PUSH PRN ×2 (05:34→13:54)
[2018-04-24 08:00] VITALS: BP 166/81; PULSE 63; RESP 17; TEMP 98.4; O2SAT 97
[2018-04-24] MEDS: INSULIN ASPART SUPPLEMENTAL SCALE SQ SCH ×4 (08:00→22:24)
[2018-04-24] MEDS: ACETAMINOPHEN/HYDROcodone 325 MG/10 MG TAB PO PRN (08:59)
[2018-04-24] MEDS: PANTOPRAZOLE SOD 40 MG DELAYED RELEASE TAB PO SCH (08:59)
[2018-04-24] MEDS: DOCUSATE SODIUM 100 MG CAP PO SCH ×2 (08:59→22:25)
[2018-04-24] MEDS: amLODIPine BESYLATE 5 MG TAB PO SCH (08:59)
[2018-04-24] MEDS: LISINOPRIL 10 MG TAB PO SCH (09:00)
[2018-04-24] MEDS: THIAMINE HCL 100 MG TAB PO SCH (09:00)
[2018-04-24] MEDS: MULTIVITAMINS/MINERALS THERAPEUTIC TAB PO SCH (09:00)
[2018-04-24] MEDS: FOLIC ACID 1 MG TAB PO SCH (09:00)
[2018-04-24] MEDS: SODIUM CHLOR 0.45% 1000 ML IV SCH (09:01)
[2018-04-24 12:00] VITALS: BP 188/86; PULSE 73; RESP 18; TEMP 97.9; O2SAT 96
--- NOTE | 2018-04-24 14:10 | HHI.PR ---
Subjective Remarks Denies any complaints he stated his sister thinks he is walking better.He is not sure.He is worried about falling.No dizziness on this admission. Objective Vital Signs Date Time Temp Pulse Resp B/P (MAP) Pulse Ox O2 Delivery O2 Flow Rate FiO2 04/24/18 08:00 98.4 63 17 166/81 (109) 97 04/24/18 04:00 98.3 60 18 196/96 (129) 97 04/24/18 00:00 98.1 78 18 172/96 (121) 96 04/23/18 20:00 98.6 66 18 163/79 (107) 96 04/23/18 16:00 97.4 60 18 175/90 (118) 99 I/O 04/23/18 04/23/18 04/23/18 04/24/18 04/24/18 04/24/18 07:00 15:00 23:00 07:00 15:00 23:00 Intake Total 240 ml Output Total 1280 ml 70 ml 450 ml 1650 ml Balance -1040 ml -70 ml -450 ml -1650 ml Intake Oral 240 ml Output Urine Total 1200 ml 450 ml 1650 ml Drainage Total 80 ml 70 ml # Voids 4 Result Diagram: 04/22/18 1130 04/22/18 1130 Objective Remarks awake alert left brow laceration crusted with bruising left cheek area perrla,eomi motor moves all 4 extremities unable to ambulate w/o assistance for safety -defer to PT Assessment and Plan Assessment and Plan possible NPH PT eval today -if improved will need shunt-pt willing -no other tests as he had a w/u in the office. -f/u outpt with Dr Jenkins. I will sign off call if any questions. Yvette Wang MD Apr 24, 2018 14:10
--- NOTE | 2018-04-24 14:39 | HHI.PR ---
Subjective Remarks Follow up hypertension. Patient states that he is feeling better today. No chest pain, dyspnea. No signs of withdrawal per nursing. Objective Vitals Vital Signs Date Time Temp Pulse Resp B/P (MAP) Pulse Ox O2 Delivery O2 Flow Rate FiO2 04/24/18 12:00 97.9 73 18 188/86 (120) 96 04/24/18 08:00 98.4 63 17 166/81 (109) 97 04/24/18 04:00 98.3 60 18 196/96 (129) 97 04/24/18 00:00 98.1 78 18 172/96 (121) 96 04/23/18 20:00 98.6 66 18 163/79 (107) 96 04/23/18 16:00 97.4 60 18 175/90 (118) 99 I/O 04/23/18 04/23/18 04/23/18 04/24/18 04/24/18 04/24/18 07:00 15:00 23:00 07:00 15:00 23:00 Intake Total 240 ml Output Total 1280 ml 70 ml 450 ml 1650 ml Balance -1040 ml -70 ml -450 ml -1650 ml Intake Oral 240 ml Output Urine Total 1200 ml 450 ml 1650 ml Drainage Total 80 ml 70 ml # Voids 4 Result Diagram: 04/22/18 1130 04/22/18 1130 Imaging Last Impressions Head CT 04/23/18 0000 Signed Impressions: CONCLUSION: 1. Mild extra-axial left frontal hemorrhage thought to likely be a subdural he morrhage. Significant underlying mass effect is not seen. 2. Underlying atrophy. The ventricles are widened at a proportion to the sulci which can suggest normal pressure hydrocephalus in the correct clinical situat ion. Lumbar Puncture Fluoroscopy 04/22/18 0000 Signed Impressions: CONCLUSION: 1. Uncomplicated lumbar drain placement as above. Objective Remarks General: No acute distress. HEENT: Left-sided periorbital ecchymosis. Heart: Regular rate and rhythm. No murmur. Lungs: Clear to auscultation bilaterally. No wheezes, rales, or rhonchi. Breathing is nonlabored. Abdomen: Soft, nontender, nondistended. Extremities: No lower extremity edema. Psych: Alert and oriented. Neuro: Normal speech. No focal deficits noted. Procedures 6/20/18 lumbar drain placement Urinary Catheter: Yes Assessment to: Continue Ayon insert reason: Surgical/Invasive Proced Date of Insertion: Apr 22, 2018 Vascular Central Line Catheter: No A/P Problem List: (1) Hypertension ICD Code: I10 - Essential (primary) hypertension (2) Diabetes mellitus ICD Code: E11.9 - Type 2 diabetes mellitus without complications (3) Hyponatremia ICD Code: E87.1 - Hypo-osmolality and hyponatremia (4) NPH (normal pressure hydrocephalus) ICD Code: G91.2 - (Idiopathic) normal pressure hydrocephalus Assessment and Plan 1. Normal pressure hydrocephalus: Status post lumbar drain placement. Management per neurosurgery. Neurology consulted. Continue physical therapy. 2. Alcohol abuse: No signs of withdrawal at this time. [facility] protocol. Thiamine, folic acid, multivitamin. One beer with each tray. 3. Hypertension: Control improved. He states that he has been noncompliant with his medications. Continue lisinopril. Increase amlodipine. Vasotec and clonidine as needed. 4. Coronary artery disease: Currently asymptomatic. Reportedly had CABG 1 year ago. Not on medications The patient has been noncompliant. 5. Recent fall, head injury: Patient states that he does not recall what happened, but woke up on the floor with periorbital bruising. Head CT shows left frontal subdural hemorrhage. Discussed with neurosurgery. Nonoperative treatment. 6. Mild hyponatremia: Likely secondary to chronic alcohol abuse. 7. Diabetes mellitus: Monitor Accu-Cheks and cover with sliding scale insulin. Metformin, pioglitazone on hold. 8. DVT prophylaxis: SCDs, BANDAR moy. Avoid chemical prophylaxis secondary to lumbar drain placement. Discharge Planning Per neurosurgery. Armando Oscar MD Apr 24, 2018 14:39
[2018-04-24] MEDS ORDERED: amLODIPine BESYLATE 5 MG TAB PO ONE (14:45)
--- NOTE | 2018-04-24 14:52 | HHI.NSPN ---
(Maryse Gutiérrez) Note Status Status: Progress Note (Maryse Gutiérrez) Interval History Interval History Mr. Alvarez is a 67 year old male who was previously evaluated in neurosurgical evaluation at the request of Neurologist Dr. Yuri Jenkins for evaluation of Normal Pressure Hydrocephalus. Mr. Alvarez suffers from poor gait and balance. He is a chronic heavy drinker and drinks 8-12 beers daily. However he was previously walking well without difficulties despite his heavy drinking. He denies headaches, vomiting, vision changes, seizures. His MRI showed evidence of hydrocephalus. Mr. 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 He denies currently shoulder pain. MRI Brain from [facility] 02/13/18 was reviewed and showed ventricular dilation disproportionate to the extra-axial space suggestive of NPH. He presents today for placement of lumbar drain. He apparently also suffered a fall, he has left periorbital ecchymoses. He doesn't remember how he fell. 04/23: currently flat being drained, nursing reports confused overnight. awaiting PT evaluation. 04/24: A CT brain has been completed due to recent fall and head injury. Very small subdural hemorrhage, no mass-effect or midline shift, stable ventriculomegaly. PT in room to reevaluate gait. (Maryse Gutiérrez) Labs, Micro, & Vital Signs Results Date Time Temp Pulse Resp B/P (MAP) Pulse Ox O2 Delivery O2 Flow Rate FiO2 04/24/18 12:00 97.9 73 18 188/86 (120) 96 04/24/18 08:00 98.4 63 17 166/81 (109) 97 04/24/18 04:00 98.3 60 18 196/96 (129) 97 04/24/18 00:00 98.1 78 18 172/96 (121) 96 04/23/18 20:00 98.6 66 18 163/79 (107) 96 04/23/18 16:00 97.4 60 18 175/90 (118) 99 04/25/18 07:00 Output Total 1650 ml Balance -1650 ml Constitutional Vital Signs Date Time Temp Pulse Resp B/P (MAP) Pulse Ox O2 Delivery O2 Flow Rate FiO2 04/24/18 12:00 97.9 73 18 188/86 (120) 96 04/24/18 08:00 98.4 63 17 166/81 (109) 97 04/24/18 04:00 98.3 60 18 196/96 (129) 97 04/24/18 00:00 98.1 78 18 172/96 (121) 96 04/23/18 20:00 98.6 66 18 163/79 (107) 96 04/23/18 16:00 97.4 60 18 175/90 (118) 99 04/25/18 07:00 Output Total 1650 ml Balance -1650 ml (Maryse Gutiérrez) Review of Systems Constitutional: DENIES: Fever, Chills Cardiovascular: DENIES: Chest pain Neurologic: COMPLAINS OF: Abnormal gait, Localized weakness, Poor Balance, DENIES: Headache (Maryse Gutiérrez) Physical Exam Patient is a 67-year male resting comfortably in bed. General: Mr. Alvarez is in no obvious distress during examination. Neuro: Appears awake, alert and oriented to person, place, not to time. Speech is clear. Lumbar drain in place, site is clean and dry, no signs of infection, clear CSF in reservoir. Cranial nerve examination: pupils equal, round, and reactive to light. Extra- ocular movements are intact with normal convergence. Facial motor are normal and symmetrical. Other cranial nerves are intact. HEENT: Normocephalic, atraumatic. Left periorbital bruising. Gross hearing intact bilaterally. Nonicteric sclera. Neck: soft, supple Musculoskeletal: Lower extremity peripheral edema. Right hand chronic contracture. 5/5 in all muscle groups of both upper extremities including deltoid, biceps, triceps and left regional vice president surgical sales, 4/5 right regional vice president surgical sales limited exam due to contracture, minimal right finger movements. In the lower extremities, strength is 5/5. Cerebellar: intact finger to nose bilaterally Lungs: clear, nonlabored breathing, no wheezing Heart: regular rate and rhythm Gait: Ambulated with physical therapy, walked with a rolling walker, still appears to be broad based, ataxic with loss of heel strikes. Appears no improvement to gait examination compared to exam in the office. (Maryse Gutiérrez) General: Mr. Alvarez is in no obvious distress during examination. Neuro: Appears awake, alert and oriented to person, place, not to time. Speech is clear. Lumbar drain in place, site is clean and dry, no signs of infection, clear CSF in reservoir. Cranial nerve examination: pupils equal, round, and reactive to light. Extra- ocular movements are intact with normal convergence. Facial motor are normal and symmetrical. Other cranial nerves are intact. HEENT: Normocephalic, atraumatic. Left periorbital bruising. Gross hearing intact bilaterally. Nonicteric sclera. Neck: soft, supple Musculoskeletal: Lower extremity peripheral edema. Right hand chronic contracture. 5/5 in all muscle groups of both upper extremities including deltoid, biceps, triceps and left regional vice president surgical sales, 4/5 right regional vice president surgical sales limited exam due to contracture, minimal right finger movements. In the lower extremities, strength is 5/5. Cerebellar: intact finger to nose bilaterally Lungs: clear, nonlabored breathing, no wheezing Heart: regular rate and rhythm Gait: Ambulated with physical therapy, walked with a rolling walker, still appears to be broad based. (Ruben Hudson MD) Medications Current Medications Current Medications Medications (Trade) Dose Ordered Sig/Roberto Route PRN Reason Start Time Stop Time Status Last Admin Dose Admin Docusate Sodium (Colace) 100 mg BID PO 04/22/18 21:00 04/24/18 08:59 Pantoprazole Sodium (Protonix) 40 mg DAILY PO 04/23/18 09:00 04/24/18 08:59 Acetaminophen/ Hydrocodone Bitart (Akeley 10-325 Mg) 1 tab Q4H PRN PO PAIN SCALE 1 TO 5 04/22/18 10:30 04/24/18 08:59 Morphine Sulfate (Morphine Inj) 2 mg Q2H PRN IV PUSH PAIN SCALE 1 TO 6 04/22/18 10:30 Acetaminophen (Tylenol) 650 mg Q4H PRN PO TEMPERATURE > 101.5 F 04/22/18 10:30 Albuterol Sulfate (Albuterol Neb) 2.5 mg Q4HR NEB PRN NEB WHEEZING 04/22/18 10:30 Sodium Chloride 1,000 ml @ 30 mls/hr Q24H IV 04/22/18 11:30 04/22/18 11:30 Cefazolin Sodium/ Dextrose 50 ml @ 100 mls/hr ROOFING SUPERVISOR IV 04/22/18 11:30 04/25/18 11:29 04/22/18 13:15 Folic Acid (Folate) 1 mg DAILY PO 04/22/18 13:15 04/27/18 13:14 04/24/18 09:00 Thiamine HCl (Vitamin B1) 100 mg DAILY PO 04/22/18 13:15 04/24/18 09:00 Multivitamins/ Minerals Therapeutic (Theragran M Tab) 1 tab DAILY PO 04/22/18 13:15 04/27/18 13:14 04/24/18 09:00 Lisinopril (Prinivil) 10 mg DAILY PO 04/23/18 09:00 04/24/18 09:00 Dextrose (D50w (Vial) Inj) 50 ml UNSCH PRN IV PUSH HYPOGLYCEMIA-SEE COMMENTS 04/22/18 13:15 Glucagon (Glucagon Inj) 1 mg UNSCH PRN OTHER HYPOGLYCEMIA-SEE COMMENTS 04/22/18 13:15 Enalaprilat (Vasotec Inj) 1.25 mg Q6H PRN IV PUSH SEE LABEL COMMENTS 04/22/18 14:45 04/24/18 13:54 Flumazenil (Romazicon Inj) 0.2 mg Q1M PRN IV PUSH SEE LABEL COMMENTS 04/22/18 15:15 Lorazepam (Ativan) 1 mg Q4H PRN PO CIWA 8 - 10 04/22/18 15:15 Lorazepam (Ativan Inj) 1 mg Q4H PRN IV PUSH CIWA 8 - 10 04/22/18 15:15 Lorazepam (Ativan) 2 mg Q2H PRN PO CIWA 11-14 04/22/18 15:15 Lorazepam (Ativan Inj) 2 mg Q2H PRN IV PUSH CIWA 11-14 04/22/18 15:15 Lorazepam (Ativan Inj) 2 mg Q1H PRN IV PUSH CIWA 15-20 04/22/18 15:15 Lorazepam (Ativan Inj) 2 mg Q15M PRN IV PUSH CIWA > 20 04/22/18 15:15 Prochlorperazine Edisylate (Compazine Inj) 10 mg Q6H PRN IV PUSH nausea 04/23/18 02:45 04/23/18 03:33 Insulin Aspart (NovoLOG SUPPLEMENTAL SCALE) 1 ACHS SLIDING SCALE SQ 04/23/18 12:00 04/24/18 13:54 Amlodipine Besylate (Norvasc) 10 mg DAILY PO 04/25/18 09:00 Amlodipine Besylate (Norvasc) 5 mg ONCE ONCE PO 04/24/18 14:45 04/24/18 14:46 (Maryse Gutiérrez) Current Medications Current Medications Docusate Sodium (Colace) 100 mg BID PO Last administered on 04/25/18at 09:00; Start 04/22/18 at 21:00; Stop 04/25/18 at 17:40; Status DC Pantoprazole Sodium (Protonix) 40 mg DAILY PO Last administered on 04/25/18at 09 :00; Start 04/23/18 at 09:00; Stop 04/25/18 at 17:40; Status DC Acetaminophen/ Hydrocodone Bitart (Akeley 10-325 Mg) 1 tab Q4H PRN PO PAIN SCALE 1 TO 5 Last administered on 04/24/18at 08:59; Start 04/22/18 at 10:30; Stop 04/25/18 at 17:40; Status DC Morphine Sulfate (Morphine Inj) 2 mg Q2H PRN IV PUSH PAIN SCALE 1 TO 6; Start 04/22/18 at 10:30; Stop 04/25/18 at 17:40; Status DC Acetaminophen (Tylenol) 650 mg Q4H PRN PO TEMPERATURE > 101.5 F; Start at 10:30; Stop 04/25/18 at 17:40; Status DC Albuterol Sulfate (Albuterol Neb) 2.5 mg Q4HR NEB PRN NEB WHEEZING; Start 04/22 at 10:30; Stop 04/25/18 at 17:40; Status DC Sodium Chloride 1,000 ml @ 30 mls/hr Q24H IV Last administered on 04/22/18at 11 :30; Start 04/22/18 at 11:30; Stop 04/25/18 at 17:40; Status DC Cefazolin Sodium/ Dextrose 50 ml @ 100 mls/hr ROOFING SUPERVISOR IV Last administered on 04/22/18at 13:15; Start 04/22/18 at 11:30; Stop 04/25/18 at 11:29; Status DC Fentanyl Citrate (fentaNYL INJ) 100 mcg STK-MED ONCE .ROUTE Last administered on 04/22/18at 13:30; Start 04/22/18 at 12:47; Stop 04/22/18 at 12:48; Status DC Midazolam HCl (Versed Inj) 2 mg STK-MED ONCE .ROUTE Last administered on at 13:30; Start 04/22/18 at 12:47; Stop 04/22/18 at 12:48; Status DC Folic Acid (Folate) 1 mg DAILY PO Last administered on 04/25/18at 09:00; Start 04/22/18 at 13:15; Stop 04/25/18 at 17:40; Status DC Thiamine HCl (Vitamin B1) 100 mg DAILY PO Last administered on 04/25/18at 09:01 ; Start 04/22/18 at 13:15; Stop 04/25/18 at 17:40; Status DC Multivitamins/ Minerals Therapeutic (Theragran M Tab) 1 tab DAILY PO Last administered on 04/25/18at 09:00; Start 04/22/18 at 13:15; Stop 04/25/18 at 17:40 ; Status DC Amlodipine Besylate (Norvasc) 5 mg DAILY PO Last administered on 04/24/18at 08: 59; Start 04/23/18 at 09:00; Stop 04/24/18 at 14:39; Status DC Lisinopril (Prinivil) 10 mg DAILY PO Last administered on 04/25/18at 09:00; Start 04/23/18 at 09:00; Stop 04/25/18 at 10:14; Status DC Dextrose (D50w (Vial) Inj) 50 ml UNSCH PRN IV PUSH HYPOGLYCEMIA-SEE COMMENTS; Start 04/22/18 at 13:15; Stop 04/25/18 at 17:40; Status DC Glucagon (Glucagon Inj) 1 mg UNSCH PRN OTHER HYPOGLYCEMIA-SEE COMMENTS; Start 04/22/18 at 13:15; Stop 04/25/18 at 17:40; Status DC Ondansetron HCl (Zofran Inj) 4 mg STK-MED ONCE .ROUTE Last administered on 04/22at 14:29; Start 04/22/18 at 14:29; Stop 04/22/18 at 14:30; Status DC Enalaprilat (Vasotec Inj) 2.5 mg STK-MED ONCE .ROUTE ; Start 04/22/18 at 14:33; Stop 04/22/18 at 14:34; Status DC Enalaprilat (Vasotec Inj) 1.25 mg Q6H PRN IV PUSH SEE LABEL COMMENTS Last administered on 04/24/18at 13:54; Start 04/22/18 at 14:45; Stop 04/25/18 at 17:40 ; Status DC Ondansetron HCl (Zofran Inj) 4 mg ONCE ONCE IV PUSH ; Start 04/22/18 at 15:15; Stop 04/22/18 at 15:16; Status DC Enalaprilat (Vasotec Inj) 1.25 mg ONCE ONCE IV PUSH Last administered on at 14:30; Start 04/22/18 at 15:15; Stop 04/22/18 at 15:16; Status DC Clonidine (Catapres) 0.1 mg ONCE ONCE PO Last administered on 04/22/18at 15:15 ; Start 04/22/18 at 15:15; Stop 04/22/18 at 15:16; Status DC Amlodipine Besylate (Norvasc) 5 mg ONCE ONCE PO Last administered on at 16:51; Start 04/22/18 at 16:00; Stop 04/22/18 at 16:01; Status DC Flumazenil (Romazicon Inj) 0.2 mg Q1M PRN IV PUSH SEE LABEL COMMENTS; Start at 15:15; Stop 04/25/18 at 17:40; Status DC Lorazepam (Ativan) 1 mg Q4H PRN PO CIWA 8 - 10; Start 04/22/18 at 15:15; Stop 04/25/18 at 17:40; Status DC Lorazepam (Ativan Inj) 1 mg Q4H PRN IV PUSH CIWA 8 - 10; Start 04/22/18 at 15: 15; Stop 04/25/18 at 17:40; Status DC Lorazepam (Ativan) 2 mg Q2H PRN PO CIWA 11-14; Start 04/22/18 at 15:15; Stop at 17:40; Status DC Lorazepam (Ativan Inj) 2 mg Q2H PRN IV PUSH CIWA 11-14; Start 04/22/18 at 15:15 ; Stop 04/25/18 at 17:40; Status DC Lorazepam (Ativan Inj) 2 mg Q1H PRN IV PUSH CIWA 15-20; Start 04/22/18 at 15:15 ; Stop 04/25/18 at 17:40; Status DC Lorazepam (Ativan Inj) 2 mg Q15M PRN IV PUSH CIWA > 20; Start 04/22/18 at 15:15 ; Stop 04/25/18 at 17:40; Status DC Clonidine (Catapres) 0.1 mg ONCE ONCE PO Last administered on 04/23/18at 01:43 ; Start 04/23/18 at 01:30; Stop 04/23/18 at 01:31; Status DC Prochlorperazine Edisylate (Compazine Inj) 10 mg Q6H PRN IV PUSH nausea Last administered on 04/23/18at 03:33; Start 04/23/18 at 02:45; Stop 04/25/18 at 17:40 ; Status DC Insulin Aspart (NovoLOG SUPPLEMENTAL SCALE) 1 ACHS SLIDING SCALE SQ Last administered on 04/25/18at 13:10; Start 04/23/18 at 12:00; Stop 04/25/18 at 17:40 ; Status DC Amlodipine Besylate (Norvasc) 10 mg DAILY PO Last administered on 04/25/18at 09: 00; Start 04/25/18 at 09:00; Stop 04/25/18 at 17:40; Status DC Amlodipine Besylate (Norvasc) 5 mg ONCE ONCE PO Last administered on at 15:07; Start 04/24/18 at 14:45; Stop 04/24/18 at 14:46; Status DC Lisinopril (Prinivil) 20 mg DAILY PO ; Start 04/26/18 at 09:00; Stop 04/26/18 at 09:00; Status DC Lisinopril (Prinivil) 10 mg ONCE ONCE PO Last administered on 04/25/18at 10:39 ; Start 04/25/18 at 10:15; Stop 04/25/18 at 10:17; Status DC (Ruben Hudson MD) Medical Decision Making MDM Remarks 67 y/o male s/p placement of lumbar drain for suspected Normal Pressure Hydrocephalus, day 2 CSF draining, no significant improvement in gait Diabetes Hypertension Chronic Etoh use (Maryse Gutiérrez) Plan Plan Remarks Gait evaluation noted following 2 days of CSF drainage, No obvious improvement to gait examination Will DC lumbar drain, keep flat per protocol Appreciate medical assistance dc planning, case mgt consulted for safe discharge planning SNF vs home with sister, attempted to call contact which is brother, no answer, message left (Maryse Gutiérrez) Attending Statement I was not sure whether there was improvement. His sister who sees him every day reports that he is walking has improved significantly. He could potentially be a candidate for placement of a GALLERY OR MUSEUM TECHNICIAN shunt. Continue to monitor for signs of alcohol withdrawal Continue aggressive pulmonary toilette, nasotracheal suction, and breathing treatments with nebulizers. Daily PT and OT Renal. Continue to monitor closely urine output, BUN and creatinine Endocrine. Continue to Monitor serial Acu checks and SSI as needed in detail ID continue to monitor for signs of infection Continue Protonix for stress ulcer prophylaxis Continue Asad hose and SCD's for DVT prophylaxis Further recommendations will be provided depending on the patient's clinical evaluation and follow up studies. The exam, history, and the medical decision-making described in the above note were completed with the assistance of the mid-level provider. I reviewed and agree with the findings presented. I attest that I had a [id number] encounter with the patient on the same day, and personally performed and documented my assessment and findings in the medical record. (Ruben Hudson MD) Maryse Gutiérrez Apr 24, 2018 14:52 Ruben Hudson MD Apr 26, 2018 16:02
[2018-04-24 17:18] VITALS: BP 154/72; PULSE 76; RESP 18; TEMP 98.1; O2SAT 96
[2018-04-24 20:00] VITALS: BP 185/89; PULSE 70; RESP 18; TEMP 97.6; O2SAT 98
[2018-04-25] VITALS: BP 162/64; PULSE 80; RESP 20; TEMP 97.3; O2SAT 97
[2018-04-25 04:00] VITALS: BP 199/90; PULSE 74; RESP 20; TEMP 98.4; O2SAT 96
[2018-04-25 06:32] VITALS: BP_SYST 158; BP_SYST 185; BP_DIAS 86; BP_DIAS 88
[2018-04-25 08:00] VITALS: BP 191/98; PULSE 64; RESP 20; TEMP 98; O2SAT 98
[2018-04-25] MEDS: PANTOPRAZOLE SOD 40 MG DELAYED RELEASE TAB PO SCH (09:00)
[2018-04-25] MEDS: FOLIC ACID 1 MG TAB PO SCH (09:00)
[2018-04-25] MEDS ORDERED: amLODIPine BESYLATE 5 MG TAB PO SCH (09:00)
[2018-04-25] MEDS: DOCUSATE SODIUM 100 MG CAP PO SCH (09:00)
[2018-04-25] MEDS: MULTIVITAMINS/MINERALS THERAPEUTIC TAB PO SCH (09:00)
[2018-04-25] MEDS: LISINOPRIL 10 MG TAB PO SCH (09:00)
[2018-04-25] MEDS: THIAMINE HCL 100 MG TAB PO SCH (09:01)
[2018-04-25] MEDS: INSULIN ASPART SUPPLEMENTAL SCALE SQ SCH ×2 (09:01→13:10)
[2018-04-25] MEDS ORDERED: LISINOPRIL 10 MG TAB PO ONE (10:15)
--- NOTE | 2018-04-25 10:26 | HHI.PR ---
Subjective Remarks Follow up hypertension. BP remains elevated. Patient states that he feels "great ". He denies chest pain, dyspnea, headache, vision changes. Objective Vitals Vital Signs Date Time Temp Pulse Resp B/P (MAP) Pulse Ox O2 Delivery O2 Flow Rate FiO2 04/25/18 08:00 98.0 64 20 191/98 (129) 98 04/25/18 06:32 185/88 (120) 158/86 (110) 04/25/18 04:00 98.4 74 20 199/90 (126) 96 04/25/18 00:00 97.3 80 20 162/64 (96) 97 04/24/18 22:58 98 Room Air 04/24/18 20:00 97.6 70 18 185/89 (121) 98 04/24/18 17:18 98.1 76 18 154/72 (99) 96 04/24/18 12:00 97.9 73 18 188/86 (120) 96 I/O 04/24/18 04/24/18 04/24/18 04/25/18 04/25/18 04/25/18 06:59 14:59 22:59 06:59 14:59 22:59 Output Total 1650 ml Balance -1650 ml Output Urine Total 1650 ml # Voids 4 3 Result Diagram: 04/22/18 1130 04/22/18 1130 Imaging Last Impressions Head CT 04/23/18 0000 Signed Impressions: CONCLUSION: 1. Mild extra-axial left frontal hemorrhage thought to likely be a subdural he morrhage. Significant underlying mass effect is not seen. 2. Underlying atrophy. The ventricles are widened at a proportion to the sulci which can suggest normal pressure hydrocephalus in the correct clinical situat ion. Lumbar Puncture Fluoroscopy 04/22/18 0000 Signed Impressions: CONCLUSION: 1. Uncomplicated lumbar drain placement as above. Objective Remarks General: No acute distress. HEENT: Left-sided periorbital ecchymosis. Heart: Regular rate and rhythm. No murmur. Lungs: Clear to auscultation bilaterally. No wheezes, rales, or rhonchi. Breathing is nonlabored. Abdomen: Soft, nontender, nondistended. Extremities: No lower extremity edema. Psych: Alert and oriented. Neuro: Normal speech. No focal deficits noted. Procedures 04/22/18 lumbar drain placement Urinary Catheter: No Vascular Central Line Catheter: No A/P Problem List: (1) Hypertension ICD Code: I10 - Essential (primary) hypertension (2) Diabetes mellitus ICD Code: E11.9 - Type 2 diabetes mellitus without complications (3) Hyponatremia ICD Code: E87.1 - Hypo-osmolality and hyponatremia (4) NPH (normal pressure hydrocephalus) ICD Code: G91.2 - (Idiopathic) normal pressure hydrocephalus Assessment and Plan 1. Normal pressure hydrocephalus: Status post lumbar drain placement. Management per neurosurgery. Evaluated by neurology as well. Continue physical therapy. Drain has been removed. 2. Alcohol abuse: No signs of withdrawal at this time. [facility] protocol. Thiamine, folic acid, multivitamin. One beer with each tray. 3. Hypertension: Blood pressure still elevated. He states that he has been noncompliant with his medications. Increase lisinopril to 20 mg daily. Continue amlodipine 10 mg daily. Vasotec and clonidine as needed. The patient was advised to follow-up with his PCP for further management of hypertension. 4. Coronary artery disease: Currently asymptomatic. Reportedly had CABG 1 year ago. Not on medications The patient has been noncompliant. 5. Recent fall, head injury: Patient states that he does not recall what happened, but woke up on the floor with periorbital bruising. Head CT shows left frontal subdural hemorrhage. Discussed with neurosurgery. Nonoperative treatment. 6. Mild hyponatremia: Likely secondary to chronic alcohol abuse. 7. Diabetes mellitus: Monitor Accu-Cheks and cover with sliding scale insulin. Metformin, pioglitazone on hold. 8. DVT prophylaxis: BANDAR Armenta. Avoid chemical prophylaxis secondary to lumbar drain placement. Discharge Planning Discharge to SNF per neurosurgery. Armando Oscar MD Apr 25, 2018 10:26
[2018-04-25] MEDS: SODIUM CHLOR 0.45% 1000 ML IV SCH (11:30)
--- NOTE | 2018-04-25 11:42 | HHI.DCPOC ---
Discharge Care Plan Diagnosis: (1) Diabetes mellitus (2) Hypertension (3) Gait instability Goals to Promote Your Health * To prevent worsening of your condition and complications * To maintain your health at the optimal level Directions to Meet Your Goals Take your medications as prescribed Follow your dietary instruction Follow activity as directed Keep your appointments as scheduled Take your immunizations and boosters as scheduled If your symptoms worsen call your PCP, if no PCP go to Urgent Care Center or Emergency Room Smoking is Dangerous to Your Health. Avoid second hand smoke Call the 24-hour hour crisis hotline for domestic abuse at Maryse Gutiérrez Apr 25, 2018 11:42
--- NOTE | 2018-04-25 11:43 | HHI.DS ---
Discharge Summary Admission Date Apr 22, 2018 at 17:09 Discharge Date: Apr 25, 2018 Admitting Diagnosis NPH (1) Hypertension ICD Code: I10 - Essential (primary) hypertension (2) Diabetes mellitus ICD Code: E11.9 - Type 2 diabetes mellitus without complications (3) Hyponatremia ICD Code: E87.1 - Hypo-osmolality and hyponatremia (4) NPH (normal pressure hydrocephalus) ICD Code: G91.2 - (Idiopathic) normal pressure hydrocephalus Brief History Mr. Alvarez is a 67 year old male who was previously evaluated in neurosurgical evaluation at the request of Neurologist Dr. Yuri Jenkins for evaluation of Normal Pressure Hydrocephalus. Mr. Alvarez suffers from poor gait and balance. He is a chronic heavy drinker and drinks 8-12 beers daily. However he was previously walking well without difficulties despite his heavy drinking. He denies headaches, vomiting, vision changes, seizures. His MRI showed evidence of hydrocephalus. Mr. 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 He denies currently shoulder pain. MRI Brain from [facility] 02/13/18 was reviewed and showed ventricular dilation disproportionate to the extra-axial space suggestive of NPH. He presents today for placement of lumbar drain. He apparently also suffered a fall, he has left periorbital ecchymoses. He doesn't remember how he fell. CBC/BMP: 04/22/18 1130 04/22/18 1130 Significant Findings Laboratory Tests Test 04/22/18 13:45 04/22/18 14:00 CSF Gross Blood (Tube 1) TRACE (0) CSF Gross Blood (Tube 2) TRACE (0) CSF Gross Blood (Tube 3) TRACE (0) CSF Gross Blood (Tube 4) TRACE (0) CSF RBC (Tube 4) 217 /MM3 (NONE) CSF Total Protein 61.2 MG/DL (15.0-45.0) Urine Urobilinogen 2.0 mg/dL (LESS THAN 2) Imaging Last Impressions Head CT 04/23/18 0000 Signed Impressions: CONCLUSION: 1. Mild extra-axial left frontal hemorrhage thought to likely be a subdural he morrhage. Significant underlying mass effect is not seen. 2. Underlying atrophy. The ventricles are widened at a proportion to the sulci which can suggest normal pressure hydrocephalus in the correct clinical situat ion. Lumbar Puncture Fluoroscopy 04/22/18 0000 Signed Impressions: CONCLUSION: 1. Uncomplicated lumbar drain placement as above. Hospital Course Mr. Alvarez had lumbar drain placed and CSF drainage per protocol. He was evaluated by PT prior to drain placement and daily after drain placement. Dr. Hudson also observed gait at day 2, no overall improvement seen. However, had discussed with sister who had seen patient ambulate at day 1 and reported dramatic improvement. Lumbar drain was dc'ed. He will be discharge home with [facility] PT as sister refusing SNF placement. Case management consulted. He will be referred to Etoh program. Will follow up outpatient. Medicine followed had adjusted home medications. He was placed on CIWA protocol. CT Brain was obtained due to a recent fall at home, very small subdural hematoma that will be managed nonoperatively. Pt Condition on Discharge: Stable Discharge Disposition: Rehab Inpatient Discharge Instructions DIET: Follow Instructions for: Heart Healthy Diet, Diabetic Diet ACTIVITIES You can perform: Weight Bearing As Sofiya ADDITIONAL Activity Instructio: Avoid falls and head trauma. Use assistance and assistive devices when ambulating. Follow up Referrals: Drug/Alcohol Rehab PCP Follow-up - 1 Week with Candace Abdullahi D.o. New Medications: Amlodipine (Amlodipine) 10 Mg Tab 10 MG PO DAILY for Blood Pressure Management, #30 TAB 0 Refills Walker with Front Wheels (Walker with Front Wheels) 1 Mis Mis EA .XX DIRECTED, #1 0 Refills Folic Acid (Folic Acid) 1 Mg Tablet 1 MG PO DAILY for Nutritional Supplement, #30 TAB 0 Refills Lisinopril (Lisinopril) 20 Mg Tab 20 MG PO DAILY for Blood Pressure Management, #30 TAB 0 Refills Multiple Vitamins W/ Minerals (Thera M Plus) 1 Tab 1 TAB PO DAILY for Nutritional Supplement, #30 TAB 0 Refills Thiamine HCl (Gnp Vitamin B-1) 100 Mg Tab 100 MG PO DAILY for Nutritional Supplement, #30 TAB 0 Refills Continued Medications: Metformin (Metformin) 500 Mg Tab 500 MG PO DAILY for Blood Sugar Management, #30 TAB 0 Refills (This prescription has been renewed) With a meal Pioglitazone (Pioglitazone) 30 Mg Tab 30 MG PO DAILY for Blood Sugar Management, #30 TAB 0 Refills (This prescription has been renewed) Discontinued Medications: Amlodipine (Amlodipine) 5 Mg Tab 5 MG PO DAILY for Blood Pressure Management, #30 TAB 0 Refills Lisinopril (Lisinopril) 10 Mg Tab 10 MG PO DAILY, #30 TAB 0 Refills Maryse Gutiérrez Apr 25, 2018 11:43
--- NOTE | 2018-04-25 11:43 | HHI.DCPOC ---
Discharge Care Plan Diagnosis: (1) Diabetes mellitus (2) Gait instability (3) Hypertension Goals to Promote Your Health * To prevent worsening of your condition and complications * To maintain your health at the optimal level Directions to Meet Your Goals Take your medications as prescribed Follow your dietary instruction Follow activity as directed Keep your appointments as scheduled Take your immunizations and boosters as scheduled If your symptoms worsen call your PCP, if no PCP go to Urgent Care Center or Emergency Room Smoking is Dangerous to Your Health. Avoid second hand smoke Call the 24-hour hour crisis hotline for domestic abuse at Maryse Gutiérrez Apr 25, 2018 11:43
[2018-04-25] MEDS ORDERED: WALKER WHEELS/F1 MIS (11:44)
--- NOTE | 2018-04-25 11:47 | HHI.NSPN ---
(Maryse Gutiérrez) Note Status Status: Progress Note (Maryse Gutiérrez) Interval History Interval History Mr. Alvarez is a 67 year old male who was previously evaluated in neurosurgical evaluation at the request of Neurologist Dr. Yuri Jenkins for evaluation of Normal Pressure Hydrocephalus. Mr. Alvarez suffers from poor gait and balance. He is a chronic heavy drinker and drinks 8-12 beers daily. However he was previously walking well without difficulties despite his heavy drinking. He denies headaches, vomiting, vision changes, seizures. His MRI showed evidence of hydrocephalus. Mr. 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 He denies currently shoulder pain. MRI Brain from [facility] 02/13/18 was reviewed and showed ventricular dilation disproportionate to the extra-axial space suggestive of NPH. He presents today for placement of lumbar drain. He apparently also suffered a fall, he has left periorbital ecchymoses. He doesn't remember how he fell. 04/23: currently flat being drained, nursing reports confused overnight. awaiting PT evaluation. 04/24: A CT brain has been completed due to recent fall and head injury. Very small subdural hemorrhage, no mass-effect or midline shift, stable ventriculomegaly. PT in room to reevaluate gait. 04/25: eating his breakfast, smiling, states he feels well, reports he feels no improvement in his walking. no new complaints. dc planning. (Maryse Gutiérrez) Labs, Micro, & Vital Signs Results Date Time Temp Pulse Resp B/P (MAP) Pulse Ox O2 Delivery O2 Flow Rate FiO2 04/25/18 08:00 98.0 64 20 191/98 (129) 98 04/25/18 06:32 185/88 (120) 158/86 (110) 04/25/18 04:00 98.4 74 20 199/90 (126) 96 04/25/18 00:00 97.3 80 20 162/64 (96) 97 04/24/18 22:58 98 Room Air 04/24/18 20:00 97.6 70 18 185/89 (121) 98 04/24/18 17:18 98.1 76 18 154/72 (99) 96 04/24/18 12:00 97.9 73 18 188/86 (120) 96 Constitutional Vital Signs Date Time Temp Pulse Resp B/P (MAP) Pulse Ox O2 Delivery O2 Flow Rate FiO2 04/25/18 08:00 98.0 64 20 191/98 (129) 98 04/25/18 06:32 185/88 (120) 158/86 (110) 04/25/18 04:00 98.4 74 20 199/90 (126) 96 04/25/18 00:00 97.3 80 20 162/64 (96) 97 04/24/18 22:58 98 Room Air 04/24/18 20:00 97.6 70 18 185/89 (121) 98 04/24/18 17:18 98.1 76 18 154/72 (99) 96 04/24/18 12:00 97.9 73 18 188/86 (120) 96 (Maryse Gutiérrez) Review of Systems Constitutional: DENIES: Fever, Chills Cardiovascular: DENIES: Chest pain Neurologic: COMPLAINS OF: Abnormal gait, DENIES: Headache, Seizures (Maryse Gutiérrez) Physical Exam Patient is a 67-year male resting comfortably in bed. General: Mr. Alvarez is in no obvious distress during examination. Neuro: Appears awake, alert and oriented to person, place, not to time. Speech is clear. Lumbar drain in place, site is clean and dry, no signs of infection, clear CSF in reservoir. Cranial nerve examination: pupils equal, round, and reactive to light. Extra- ocular movements are intact with normal convergence. Facial motor are normal and symmetrical. Other cranial nerves are intact. HEENT: Normocephalic, atraumatic. Left periorbital bruising. Gross hearing intact bilaterally. Nonicteric sclera. Neck: soft, supple Musculoskeletal: Lower extremity peripheral edema. Right hand chronic contracture. 5/5 in all muscle groups of both upper extremities including deltoid, biceps, triceps and left test car driver, 4/5 right test car driver limited exam due to contracture, minimal right finger movements. In the lower extremities, strength is 5/5. Cerebellar: intact finger to nose bilaterally Lungs: clear, nonlabored breathing, no wheezing Heart: regular rate and rhythm (Maryse Gutiérrez) General: Mr. Alvarez is in no obvious distress during examination. Neuro: Appears awake, alert and oriented to person, place, not to time. Speech is clear. Lumbar drain in place, site is clean and dry, no signs of infection, clear CSF in reservoir. Cranial nerve examination: pupils equal, round, and reactive to light. Extra- ocular movements are intact with normal convergence. Facial motor are normal and symmetrical. Other cranial nerves are intact. HEENT: Normocephalic, atraumatic. Left periorbital bruising. Gross hearing intact bilaterally. Nonicteric sclera. Neck: soft, supple Musculoskeletal: Lower extremity peripheral edema. Right hand chronic contracture. 5/5 in all muscle groups of both upper extremities including deltoid, biceps, triceps and left test car driver, 4/5 right test car driver limited exam due to contracture, minimal right finger movements. In the lower extremities, strength is 5/5. Cerebellar: intact finger to nose bilaterally Lungs: clear, nonlabored breathing, no wheezing Heart: regular rate and rhythm Skin: warm and dry (Ruben Hudson MD) Medications Current Medications Current Medications Medications (Trade) Dose Ordered Sig/Roberto Route PRN Reason Start Time Stop Time Status Last Admin Dose Admin Docusate Sodium (Colace) 100 mg BID PO 04/22/18 21:00 04/25/18 09:00 Pantoprazole Sodium (Protonix) 40 mg DAILY PO 04/23/18 09:00 04/25/18 09:00 Acetaminophen/ Hydrocodone Bitart (Pomona 10-325 Mg) 1 tab Q4H PRN PO PAIN SCALE 1 TO 5 04/22/18 10:30 04/24/18 08:59 Morphine Sulfate (Morphine Inj) 2 mg Q2H PRN IV PUSH PAIN SCALE 1 TO 6 04/22/18 10:30 Acetaminophen (Tylenol) 650 mg Q4H PRN PO TEMPERATURE > 101.5 F 04/22/18 10:30 Albuterol Sulfate (Albuterol Neb) 2.5 mg Q4HR NEB PRN NEB WHEEZING 04/22/18 10:30 Sodium Chloride 1,000 ml @ 30 mls/hr Q24H IV 04/22/18 11:30 04/22/18 11:30 Folic Acid (Folate) 1 mg DAILY PO 04/22/18 13:15 04/27/18 13:14 04/25/18 09:00 Thiamine HCl (Vitamin B1) 100 mg DAILY PO 04/22/18 13:15 04/25/18 09:01 Multivitamins/ Minerals Therapeutic (Theragran M Tab) 1 tab DAILY PO 04/22/18 13:15 04/27/18 13:14 04/25/18 09:00 Dextrose (D50w (Vial) Inj) 50 ml UNSCH PRN IV PUSH HYPOGLYCEMIA-SEE COMMENTS 04/22/18 13:15 Glucagon (Glucagon Inj) 1 mg UNSCH PRN OTHER HYPOGLYCEMIA-SEE COMMENTS 04/22/18 13:15 Enalaprilat (Vasotec Inj) 1.25 mg Q6H PRN IV PUSH SEE LABEL COMMENTS 04/22/18 14:45 04/24/18 13:54 Flumazenil (Romazicon Inj) 0.2 mg Q1M PRN IV PUSH SEE LABEL COMMENTS 04/22/18 15:15 Lorazepam (Ativan) 1 mg Q4H PRN PO CIWA 8 - 10 04/22/18 15:15 Lorazepam (Ativan Inj) 1 mg Q4H PRN IV PUSH CIWA 8 - 10 04/22/18 15:15 Lorazepam (Ativan) 2 mg Q2H PRN PO CIWA 11-14 04/22/18 15:15 Lorazepam (Ativan Inj) 2 mg Q2H PRN IV PUSH CIWA 11-14 04/22/18 15:15 Lorazepam (Ativan Inj) 2 mg Q1H PRN IV PUSH CIWA 15-20 04/22/18 15:15 Lorazepam (Ativan Inj) 2 mg Q15M PRN IV PUSH CIWA > 20 04/22/18 15:15 Prochlorperazine Edisylate (Compazine Inj) 10 mg Q6H PRN IV PUSH nausea 04/23/18 02:45 04/23/18 03:33 Insulin Aspart (NovoLOG SUPPLEMENTAL SCALE) 1 ACHS SLIDING SCALE SQ 04/23/18 12:00 04/25/18 09:01 Amlodipine Besylate (Norvasc) 10 mg DAILY PO 04/25/18 09:00 04/25/18 09:00 Lisinopril (Prinivil) 20 mg DAILY PO 04/26/18 09:00 (Maryse Gutiérrez) Current Medications Current Medications Docusate Sodium (Colace) 100 mg BID PO Last administered on 04/25/18at 09:00; Start 04/22/18 at 21:00; Stop 04/25/18 at 17:40; Status DC Pantoprazole Sodium (Protonix) 40 mg DAILY PO Last administered on 04/25/18at 09 :00; Start 04/23/18 at 09:00; Stop 04/25/18 at 17:40; Status DC Acetaminophen/ Hydrocodone Bitart (Pomona 10-325 Mg) 1 tab Q4H PRN PO PAIN SCALE 1 TO 5 Last administered on 04/24/18at 08:59; Start 04/22/18 at 10:30; Stop 04/25/18 at 17:40; Status DC Morphine Sulfate (Morphine Inj) 2 mg Q2H PRN IV PUSH PAIN SCALE 1 TO 6; Start 04/22/18 at 10:30; Stop 04/25/18 at 17:40; Status DC Acetaminophen (Tylenol) 650 mg Q4H PRN PO TEMPERATURE > 101.5 F; Start at 10:30; Stop 04/25/18 at 17:40; Status DC Albuterol Sulfate (Albuterol Neb) 2.5 mg Q4HR NEB PRN NEB WHEEZING; Start 04/22 at 10:30; Stop 04/25/18 at 17:40; Status DC Sodium Chloride 1,000 ml @ 30 mls/hr Q24H IV Last administered on 04/22/18at 11 :30; Start 04/22/18 at 11:30; Stop 04/25/18 at 17:40; Status DC Cefazolin Sodium/ Dextrose 50 ml @ 100 mls/hr CARE TRANSITION MANAGER IV Last administered on 04/22/18at 13:15; Start 04/22/18 at 11:30; Stop 04/25/18 at 11:29; Status DC Fentanyl Citrate (fentaNYL INJ) 100 mcg STK-MED ONCE .ROUTE Last administered on 04/22/18at 13:30; Start 04/22/18 at 12:47; Stop 04/22/18 at 12:48; Status DC Midazolam HCl (Versed Inj) 2 mg STK-MED ONCE .ROUTE Last administered on at 13:30; Start 04/22/18 at 12:47; Stop 04/22/18 at 12:48; Status DC Folic Acid (Folate) 1 mg DAILY PO Last administered on 04/25/18at 09:00; Start 04/22/18 at 13:15; Stop 04/25/18 at 17:40; Status DC Thiamine HCl (Vitamin B1) 100 mg DAILY PO Last administered on 04/25/18at 09:01 ; Start 04/22/18 at 13:15; Stop 04/25/18 at 17:40; Status DC Multivitamins/ Minerals Therapeutic (Theragran M Tab) 1 tab DAILY PO Last administered on 04/25/18at 09:00; Start 04/22/18 at 13:15; Stop 04/25/18 at 17:40 ; Status DC Amlodipine Besylate (Norvasc) 5 mg DAILY PO Last administered on 04/24/18at 08: 59; Start 04/23/18 at 09:00; Stop 04/24/18 at 14:39; Status DC Lisinopril (Prinivil) 10 mg DAILY PO Last administered on 04/25/18at 09:00; Start 04/23/18 at 09:00; Stop 04/25/18 at 10:14; Status DC Dextrose (D50w (Vial) Inj) 50 ml UNSCH PRN IV PUSH HYPOGLYCEMIA-SEE COMMENTS; Start 04/22/18 at 13:15; Stop 04/25/18 at 17:40; Status DC Glucagon (Glucagon Inj) 1 mg UNSCH PRN OTHER HYPOGLYCEMIA-SEE COMMENTS; Start 04/22/18 at 13:15; Stop 04/25/18 at 17:40; Status DC Ondansetron HCl (Zofran Inj) 4 mg STK-MED ONCE .ROUTE Last administered on 04/22at 14:29; Start 04/22/18 at 14:29; Stop 04/22/18 at 14:30; Status DC Enalaprilat (Vasotec Inj) 2.5 mg STK-MED ONCE .ROUTE ; Start 04/22/18 at 14:33; Stop 04/22/18 at 14:34; Status DC Enalaprilat (Vasotec Inj) 1.25 mg Q6H PRN IV PUSH SEE LABEL COMMENTS Last administered on 04/24/18at 13:54; Start 04/22/18 at 14:45; Stop 04/25/18 at 17:40 ; Status DC Ondansetron HCl (Zofran Inj) 4 mg ONCE ONCE IV PUSH ; Start 04/22/18 at 15:15; Stop 04/22/18 at 15:16; Status DC Enalaprilat (Vasotec Inj) 1.25 mg ONCE ONCE IV PUSH Last administered on at 14:30; Start 04/22/18 at 15:15; Stop 04/22/18 at 15:16; Status DC Clonidine (Catapres) 0.1 mg ONCE ONCE PO Last administered on 04/22/18at 15:15 ; Start 04/22/18 at 15:15; Stop 04/22/18 at 15:16; Status DC Amlodipine Besylate (Norvasc) 5 mg ONCE ONCE PO Last administered on at 16:51; Start 04/22/18 at 16:00; Stop 04/22/18 at 16:01; Status DC Flumazenil (Romazicon Inj) 0.2 mg Q1M PRN IV PUSH SEE LABEL COMMENTS; Start at 15:15; Stop 04/25/18 at 17:40; Status DC Lorazepam (Ativan) 1 mg Q4H PRN PO CIWA 8 - 10; Start 04/22/18 at 15:15; Stop 04/25/18 at 17:40; Status DC Lorazepam (Ativan Inj) 1 mg Q4H PRN IV PUSH CIWA 8 - 10; Start 04/22/18 at 15: 15; Stop 04/25/18 at 17:40; Status DC Lorazepam (Ativan) 2 mg Q2H PRN PO CIWA 11-14; Start 04/22/18 at 15:15; Stop at 17:40; Status DC Lorazepam (Ativan Inj) 2 mg Q2H PRN IV PUSH CIWA 11-14; Start 04/22/18 at 15:15 ; Stop 04/25/18 at 17:40; Status DC Lorazepam (Ativan Inj) 2 mg Q1H PRN IV PUSH CIWA 15-20; Start 04/22/18 at 15:15 ; Stop 04/25/18 at 17:40; Status DC Lorazepam (Ativan Inj) 2 mg Q15M PRN IV PUSH CIWA > 20; Start 04/22/18 at 15:15 ; Stop 04/25/18 at 17:40; Status DC Clonidine (Catapres) 0.1 mg ONCE ONCE PO Last administered on 04/23/18at 01:43 ; Start 04/23/18 at 01:30; Stop 04/23/18 at 01:31; Status DC Prochlorperazine Edisylate (Compazine Inj) 10 mg Q6H PRN IV PUSH nausea Last administered on 04/23/18at 03:33; Start 04/23/18 at 02:45; Stop 04/25/18 at 17:40 ; Status DC Insulin Aspart (NovoLOG SUPPLEMENTAL SCALE) 1 ACHS SLIDING SCALE SQ Last administered on 04/25/18at 13:10; Start 04/23/18 at 12:00; Stop 04/25/18 at 17:40 ; Status DC Amlodipine Besylate (Norvasc) 10 mg DAILY PO Last administered on 04/25/18at 09: 00; Start 04/25/18 at 09:00; Stop 04/25/18 at 17:40; Status DC Amlodipine Besylate (Norvasc) 5 mg ONCE ONCE PO Last administered on at 15:07; Start 04/24/18 at 14:45; Stop 04/24/18 at 14:46; Status DC Lisinopril (Prinivil) 20 mg DAILY PO ; Start 04/26/18 at 09:00; Stop 04/26/18 at 09:00; Status DC Lisinopril (Prinivil) 10 mg ONCE ONCE PO Last administered on 04/25/18at 10:39 ; Start 04/25/18 at 10:15; Stop 04/25/18 at 10:17; Status DC (Ruben Hudson MD) Medical Decision Making MDM Remarks 67 y/o male s/p placement of lumbar drain for suspected Normal Pressure Hydrocephalus, day 2 CSF draining, no significant improvement in gait Diabetes Hypertension Chronic Etoh use (Maryse Gutiérrez) Plan Plan Remarks Gait evaluation noted following 2 days of CSF drainage and no obvious improvement to gait examination, no recommendation of PROGRAM DIRECTOR shunt placement at this time, I had discussed with patient's sister over the phone who states on day 1 he had significant improvement in his walking compared to prior lumbar drain, states "it was night and day", she requests possibility of having a PROGRAM DIRECTOR shunt placed, dw her that we can discuss this further as an outpatient follow up with Dr. Hudson recommend he undergoes a detox program for his heavy alcohol use, appreciate medical assistance, dc planning, we had recommended SNF.rehab however family adamant patient to be discharge home with her and she will be responsible for the patient, case mgt consulted, dw sister patient will require 24 hour supervision at home, and not drink, and continuing his medications, Dr. Hudson cleared to dc home with [facility] PT follow up Dr. Jenkins, follow up PCP (Maryse Gutiérrez) Maryse Gutiérrez Apr 25, 2018 11:47 Ruben Hudson MD Apr 26, 2018 16:08
[2018-04-25 12:53] VITALS: BP 160/85; PULSE 73; RESP 18; TEMP 98.4; O2SAT 96
--- NOTE | 2018-04-25 13:11 | HHI.FF ---
Face to Face Verification Diagnosis: (1) Noncompliance w/medication treatment due to intermit use of medication (2) Gait instability (3) Diabetes mellitus (4) Hypertension (5) NPH (normal pressure hydrocephalus) Physical Therapy Order: Improve ambulation, Strength and gait training Home Health Nursing Order: Medical education Signs/symptoms of disease process Diabetic education Medication education-adverse effect Nursing assessment with vital signs I have seen patient Joanne Alvarez on 04/25/18. My clinical findings support the need for the requested home health care services because: Ltd mobility - disease progression Deconditioned w/ increased weakness Med compliance is questionable Limited ability to care for self Impaired cognition/judgement High risk of falls I certify that my clinical findings support that this patient is homebound because: Impaired cognitive ability/safety Unsteady gait/balance Unsafe to leave home unassisted Maryse Gutiérrez Apr 25, 2018 13:11
[2018-04-25] MEDS ORDERED: THERM PO (13:16)
[2018-04-25] MEDS ORDERED: THIA100 PO (13:16)
[2018-04-25] MEDS ORDERED: FOLI1TAB6 PO (13:16)
[2018-04-25] MEDS ORDERED: PIOG30TA4 PO (13:16)
[2018-04-25] MEDS ORDERED: LISI-515 PO (13:16)
[2018-04-25] MEDS ORDERED: METF500T PO (13:16)
[2018-04-25] MEDS ORDERED: AMLO10TA2 PO (13:16)
[2018-04-25 15:45] VITALS: BP 144/72; PULSE 81; RESP 18; TEMP 98.5; O2SAT 96
[2018-04-26] MEDS ORDERED: LISINOPRIL 20 MG TAB PO SCH (09:00)
== END 2018-04-25 17:38 | disposition home health service (06) | DRG 56 ==
LOC: HROP 10:02 → HRIP 10:03 → N05B 16:15 → HRIP 16:15 → HROP 17:07 → N05B 17:09
PROVIDERS: ADMIT Neurological Surgery; ATTEND Neurological Surgery
PROC: 009U30Z Drainage of Spinal Canal with Drainage Device, Percutaneous Approach (ICD-10-PCS; principal; 2018-04-22)
PROC: B01BZZZ Fluoroscopy of Spinal Cord (ICD-10-PCS; 2018-04-22)
DX: G91.2 (Idiopathic) normal pressure hydrocephalus (principal); S06.5X0A Traumatic subdural hemorrhage without loss of consciousness, initial encounter; I10 Essential (primary) hypertension; E87.1 Hypo-osmolality and hyponatremia; S00.12XA Contusion of left eyelid and periocular area, initial encounter; T14.90XS Injury, unspecified, sequela; E11.9 Type 2 diabetes mellitus without complications; I25.10 Atherosclerotic heart disease of native coronary artery without angina pectoris; R26.81 Unsteadiness on feet; F10.10 Alcohol abuse, uncomplicated; I25.2 Old myocardial infarction; M24.541 Contracture, right hand; W19.XXXA Unspecified fall, initial encounter; Z91.14 Patient's other noncompliance with medication regimen; Z95.1 Presence of aortocoronary bypass graft; Z79.84 Long term (current) use of oral hypoglycemic drugs
CPT/HCPCS: 63741; 70450; 77003; 80048; 80053; 81001; 82945; 82948; 84157; 85025; 85610; 85730; 87070; 87205; 89051; 94150; 99152; 99153; C1755; J0690; J0780; J1815; J2250; J2405; J3010

== ENCOUNTER 2018-05-22 06:22 | Inpatient (IN) ==
[2018-05-22] MEDS ORDERED: Vancomycin Inj 1 GM/200 ML PIGGYBACK IV.SIG PRN (06:54)
[2018-05-22] MEDS ORDERED: Sodium Chlor 0.9% Inj 500 ML IV.SIG SCH (07:00)
[2018-05-22] MEDS ORDERED: Chlorhexidine Gluconate 2% 1 Pack (2 Cloths) TOPICAL SCH (07:00)
[2018-05-22] MEDS ORDERED: Metoprolol Tartrate 25 MG Tablet PO SCH (07:00)
[2018-05-22] MEDS: ceFAZolin 2 GM Premix Inj 2 GM/50 ML PIGGYBACK IV.SIG ONE ×2 (09:05→14:39)
[2018-05-22] MEDS ORDERED: Bisacodyl 10 MG Supp RECTAL PRN ×2 (09:31→09:34)
[2018-05-22] MEDS: Lidocaine 1%/Epinephrine 1:100,000 Inj 30 ML Vial ONE ×2 (10:06→14:39)
[2018-05-22] MEDS: Gelatin Size 100 Topical Foam ONE ×2 (10:07→14:40)
[2018-05-22] MEDS: Thrombin Topical Soln 5,000 UNIT Vial TOPICAL ONE ×2 (10:08→14:40)
[2018-05-22] MEDS ORDERED: fentaNYL Citrate Inj 100 MCG/2 ML Ampul ONE (11:00)
--- NOTE | 2018-05-22 11:18 | P.OP ---
- Preoperative Diagnosis (1) Hydrocephalus - Postoperative Diagnosis (1) Hydrocephalus Date of procedure: 05/22/18 Procedure: Ventriculoperitoneal shunt Anesthesia: STEFANO Surgeon: Ruben Hudson MD Excavating Contractor: Oly Yost Pathology: other (csf) Operation and Findings: INTRAOPERATIVE FINDINGS: Clear cerebrospinal fluid with an opening pressure of 110 mm of water. INDICATIONS FOR PROCEDURE: Mr Alvarez is a 67 year old male with history of normal pressure hydrocephalus who presented with progressive gait imbalance and short term memory loss. He had chronic communicating hydrocephalus and his condition was getting progressively worse. He underwent evaluation with placement of a lumbar drain and cerebrospinal fluid drainage with very significant improvement in her symptoms. A ventriculoperitoneal shunt was indicated The [id number] details of the procedure, its indications, alternatives, risks , and potential complications of the surgery were fully discussed with the patient and his family. They fully understood. All their questions were answered. No guarantees were given. They voiced requesting the surgery and signed informed consent.They were offered the alternative of continuing nonsurgical treatment. DETAILS OF THE SURGICAL PROCEDURE: After the induction of general anesthesia, endotracheal intubation was performed. A Ayon catheter, bilateral BANDAR hose and sequential compression devices were placed and kept throughout the procedure. The patient was positioned supine on a 30-80 table with the head over a gel doughnut. All pressure points were carefully padded with eggcrate mattress. The right frontotemporal parietal area was shaved prepped and draped in the usual sterile fashion, as well as the neck, chest and abdomen. A small incision was made in the patient's right upper quadrant with a #10 blade and the dissection was carried out through the subcutaneous tissue and Addy's fascia. The rectus sheath was carefully opened with Metzenbaum scissors and the rectus muscles were split along its fibers. The posterior rectus sheath was elevated and carefully opened. The peritoneum was elevated with mosquitoes and opened in the standard fashion. The peritoneal cavity was visualized and exposed. A pursestring suture was placed around the peritoneal opening. Using a tunneler a subcutaneous tunnel was created connecting the abdominal incision with the planned head incision. A small incision was made in the right frontal area and a self-retaining retractor was placed in the incision. An entry point for the catheter was selected 90 mm posterior to the supraorbital rim and 25 mm lateral to the midline. A Midas Dave was used to create the sparkle hole. The dura was coagulated with the bipolar in a cruciform fashion. A peritoneal catheter was placed in the subcutaneous tunnel previously created and a pocket was created underneath the galea for placement of the valve. A Fabulyzer programmable valve has calibrated at a pressure of 110 mmHg and flushed according to the principal web developer's instructions. The valve was secured to the proximal end of the peritoneal catheter using a 2-0 silk. Then, a ventricular catheter was advanced into the ventricular system. A good flow of cerebrospinal fluid was obtained. The catheter was connected to the valve and the connection secured with a 2-0 silk. Cerebrospinal fluid was noted to drip through the distal end of the peritoneal catheter. The peritoneal catheter was placed in the peritoneal cavity under direct visualization. The pursestring suture was carefully adjusted with special care not to strangulate the catheter. The rectus sheath was closed using interrupted 2-0 Vicryl suture. The Addy's fascia was approximated with 3-0 Vicryl, and the subcutaneous with 3-0 Vicryl. The skin was closed with running subcuticular 4-0 Vicryl in the abdomen. The skin incision was closed using interrupted 3-0 Vicryl for the galea and rashel to the skin. At the end of the procedure, the sponge, needle and instrument counts were all correct. The estimated blood was less than 50 cc. No blood transfusion was given. No intraoperative complications occurred. The patient received preoperative prophylactic antibiotics. The patient was then extubated and transferred to the recovery room in stable condition.
[2018-05-22] MEDS: Sod Chloride 0.9% Inj 1,000 ML IV.CONT SCH ×2 (11:38→18:47)
--- NOTE | 2018-05-22 12:56 | P.CONIM ---
History of Present Illness Reason for Consult: medical management/ alcohol abuse Primary Care Provider: Candace Abdullahi DO Chief Complaint: s/p MARINE STEWARD shunt surgery History of Present Illness: patient is a 67 y/o male with NPH,CAD,hypertension and diabetes, with history of alcohol abuse, underwent MARINE STEWARD shunt placement today. at the time of my evaluation he was resting comfortably with no reported pain, anxiety,dizziness or chest pain. he says that he usually drinks 12 packs of beer daily and the last drink was two days ago. Review of Systems All other systems reviewed negative except as stated in [facility] - History History Provided By: Patient - Medical History Medical History: Medical History (Last Updated 05/22/18 @ 07:34 by Lola Glez) CAD (coronary artery disease) Colonoscopy planned Contracture, right hand Diabetes ETOH abuse History of angina History of lumbar puncture Hydrocephalus - Surgical History Surgical History: Surgical History (Last Updated 05/22/18 @ 07:34 by Lola Glez) H/O elbow surgery Hx of CABG S/P right knee arthroscopy - Tobacco History Second Hand Smoke Exposure: No Smoking Status: Never smoker - Alcohol History How Often Do You Have a Drink Containing Alcohol: 4 or more times a week - Substance Use History Substance History: No History of Abuse - Travel History Recent Travel in the [facility] [[email or web address]] Within the Last 8 Weeks: No Medications and Allergies Active Medications: Active Medications Hydrocodone Bitart/Acetaminophen ([place] 10/325) 1 tab PO Q4H PRN PRN Reason: Pain Scale 1 To 5 Last Admin: 05/22/18 11:49 Dose: 1 tab Al Hydroxide/Mg Hydroxide (Milk Of Magnesia Liq) 30 ml PO Q12H PRN PRN Reason: Mild Constipation Al Hydroxide/Mg Hydroxide (Milk Of Magnesia Liq) 30 ml PO Q12H PRN PRN Reason: Mild Constipation Amlodipine Besylate (Norvasc) 10 mg PO DAILY [facility] Bisacodyl (Dulcolax Supp) 10 mg RECTAL DAILY PRN PRN Reason: SEVERE CONSITIPATION Chlorhexidine Gluconate (Chlorhexidine 2% Cloth) 3 pack TOPICAL TOWERMAN [facility] Stop: 05/25/18 06:46 Last Admin: 05/22/18 07:48 Dose: 3 pack Folic Acid (Folic Acid) 1 mg PO DAILY [facility] Lactated Ringer's (Lr 1000 Ml Inj) 1,000 mls @ 30 mls/hr IV.SIG .Q24H [facility] Stop: 05/25/18 06:46 Last Admin: 05/22/18 07:47 Dose: 30 mls/hr Sodium Chloride (Ns Inj) 500 mls @ 30 mls/hr IV.SIG .Q10H [facility] Stop: 05/25/18 06:46 Vancomycin/Sodium Chloride (Vancomycin Inj) 1 gm in 200 mls @ 200 mls/hr IV.SIG TOWERMAN PRN PRN Reason: PRE-OP ; GIVE TOWERMAN TO OR Stop: 05/22/18 22:00 Sodium Chloride (Ns Inj) 1,000 mls @ 30 mls/hr IV.SIG .Q24H [facility] Sodium Chloride (Ns Inj) 1,000 mls @ 100 mls/hr IV.CONT .Q10H [facility] Last Admin: 05/22/18 11:38 Dose: 100 mls/hr Cefazolin Sodium/Dextrose (Ancef 2 Gm Premix Inj) 2 gm in 50 mls @ 100 mls/hr IV.SIG Q8H [facility] Stop: 05/23/18 02:29 Lactulose (Lactulose Liq) 30 ml PO DAILY PRN PRN Reason: SEVERE CONSITIPATION Lisinopril (Prinivil) 20 mg PO DAILY [facility] Metformin HCl (Glucophage) 500 mg PO DAILY [facility] Metoprolol Tartrate (Lopressor) 25 mg PO TOWERMAN [facility] Stop: 05/25/18 06:46 Miscellaneous Information ([facility] 1 each OTHER UNSCH PRN PRN Reason: SEE LABEL COMMENTS Stop: 05/23/18 10:50 Multivitamins (Theragran) 1 tab PO DAILY [facility] Pioglitazone HCl (Actos) 30 mg PO DAILY [facility] Povidone Iodine (Betadine 5% Antisepsis Kit) 1 applicatio EACH NARE TOWERMAN [facility] Stop: 05/25/18 06:46 Last Admin: 05/22/18 07:47 Dose: 1 applicatio Senna/Docusate Sodium (Ny-Colace) 1 tab PO BID [facility] Sennosides (Senokot) 17.2 mg PO Q12H PRN PRN Reason: Moderate Constipation Thiamine HCl (Vitamin B1) 100 mg PO DAILY [facility] Allergies Allergy/AdvReac Type Severity Reaction Status Date / Time No Known Allergies Allergy Verified 05/20/18 08:38 Home Medications Medication Instructions Recorded Confirmed Type amlodipine 10 mg PO DAILY 05/20/18 05/22/18 History folic acid 1 mg PO DAILY 05/20/18 05/22/18 History lisinopril 20 mg PO DAILY 05/20/18 05/22/18 History metformin 500 mg PO DAILY 05/20/18 05/22/18 History pjuelujdenkb-zip-ipun-FA-vit K 1 tab PO DAILY 05/20/18 05/22/18 History [Adults Multivitamin] pioglitazone 30 mg PO DAILY 05/20/18 05/22/18 History thiamine HCl (vitamin B1) 100 mg PO DAILY 05/20/18 05/22/18 History Exam Vital signs: Vital Signs 05/22/18 07:36 05/22/18 10:51 05/22/18 11:49 Temperature 97.4 F L 97.4 F L Pulse Rate 60 69 Respiratory Rate 18 14 14 Blood Pressure 140/74 178/83 H Pulse Oximetry 98 97 Intake & Output 05/21/18 05/22/18 05/22/18 18:59 06:59 18:59 Intake Total 1200 / 1200 Output Total 900 / 900 Balance 300 / 300 Weight 85 kg 85.4 kg Intake: Anesthesia Amount 1200 / 1200 Output: Urine Amount (Catheter) 900 / 900 Indwelling Urethral Catheter 900 / 900 Other: Weight On Admission 85.4 kg - Constitutional no acute distress - Routine HEENT Exam Head: Present: normocephalic (head covered with clean dressing.) - Routine Respiratory Exam Present: CTA bilaterally - Routine Cardiovascular Exam Present: RRR - Routine Abdominal Exam Present: soft - Routine Extremities Exam Comments: no pedal edema. - Routine Neurological Exam Present: alert, oriented X3 Assessment and Plan - Plan A/P - NPH- s/p MARINE STEWARD shunt placement- management per neurosurgery -alcohol abuse; continue multivitamin and thiamine- [facility] protocol- watch for withdrawal. -hypertension/ CAD; resumed home meds- will monitor. -diabetes mellitus; resumed home meds- will start on accu-check with SSI. -DVT prophylaxis; per neurosurgery. thank you for the consult. Discussed Condition With: the patient and RN.
[2018-05-22] MEDS ORDERED: Dextrose 50% in Water 50 ML Vial IV.PUSH PRN (12:57)
[2018-05-22] MEDS ORDERED: LORazepam 1 MG Tablet PO PRN (12:58)
[2018-05-22] MEDS ORDERED: Haloperidol Inj 5 MG/ML Ampul IV.PUSH PRN (12:58)
[2018-05-22] MEDS: Sod Chloride 0.9% Inj 1,000 ML IV.SIG SCH (14:39)
[2018-05-22] MEDS ORDERED: Neostigmine Inj 5 MG/5 ML Syringe IV.PUSH ONE (15:05)
[2018-05-22] MEDS ORDERED: Lidocaine PF 1% Inj 5 ML Syringe INFILTRATN ONE (15:05)
[2018-05-22] MEDS ORDERED: Labetalol HCl Inj 100 MG/20 ML Vial IV.CONT ONE (15:05)
[2018-05-22] MEDS ORDERED: Glycopyrrolate Inj 1 MG/5 ML Syringe IV.PUSH ONE (15:05)
[2018-05-22] MEDS: ceFAZolin 2 GM Premix Inj 2 GM/50 ML PIGGYBACK IV.SIG SCH (16:15)
[2018-05-22] MEDS: Insulin NovoLOG Aspart Correctional Sugar Inj SQ SCH ×2 (16:19→21:27)
[2018-05-22] MEDS ORDERED: Senna/Docusate Sodium 8.6/50 MG Tablet PO SCH (21:00)
[2018-05-22] MEDS: Senna/Docusate Sodium 8.6/50 MG Tablet PO SCH (21:24)
[2018-05-23] MEDS: ceFAZolin 2 GM Premix Inj 2 GM/50 ML PIGGYBACK IV.SIG SCH ×2 (00:13→08:27)
--- NOTE | 2018-05-23 08:17 | P.PNIM ---
Subjective Interval history: Mild pain right scalp area around surgical site, no fever or chills, denies cough. No headache. Blood pressure elevated, per patient, his blood pressure is always been difficult to control and even at home, it has been in the systolic 150s. Blood glucose has been stable. Physical Exam Vital signs: Vital Signs 05/22/18 10:51 05/22/18 11:00 05/22/18 11:15 Temperature 97.4 F L 98.0 F 98.0 F Pulse Rate 69 68 65 Respiratory Rate 14 14 14 Blood Pressure 178/83 H 169/88 H 153/82 H Pulse Oximetry 97 97 97 05/22/18 11:30 05/22/18 11:45 05/22/18 11:49 Temperature 98.0 F 98.0 F Pulse Rate 63 65 Respiratory Rate 14 14 14 Blood Pressure 154/82 H 170/84 H Pulse Oximetry 97 96 05/22/18 12:00 05/22/18 12:30 05/22/18 13:00 Temperature 98.0 F 98.0 F 98.0 F Pulse Rate 63 62 65 Respiratory Rate 14 14 14 Blood Pressure 157/79 H 166/78 H 165/77 H Pulse Oximetry 93 L 95 94 L 05/22/18 13:30 05/22/18 14:00 05/22/18 14:25 Temperature 98.0 F 98.0 F 98.0 F Pulse Rate 66 66 70 Respiratory Rate 14 14 14 Blood Pressure 153/76 H 151/73 H 151/73 H Pulse Oximetry 93 L 94 L 94 L 05/22/18 15:35 05/22/18 20:00 05/23/18 00:00 Temperature 98.9 F 97.7 F 97.6 F Pulse Rate 81 72 73 Respiratory Rate 18 20 18 Blood Pressure 148/76 H 152/75 H 136/64 Pulse Oximetry 94 L 95 93 L 05/23/18 04:00 Temperature 97.6 F Pulse Rate 64 Respiratory Rate 18 Blood Pressure 165/79 H Pulse Oximetry 98 Intake & Output 05/22/18 05/23/18 05/23/18 18:59 06:59 18:59 Intake Total 2014 2295 / 2295 Output Total 1500 / 1500 1000 / 1000 1750 / 1750 Balance 515 / 515 1295 / 1295 -1750 / -1750 Weight 91.9 kg 93 kg Intake: IV 335 / 335 1815 / 1815 NS Inj 1,000 ML @ 100 mls/hr IV 235 / 235 765 / 765 .CONT .Q10H [facility] Rx#:[id number] LR 1000 mL Inj 1,000 ML @ 30 1000 / 1000 mls/hr IV.SIG .Q24H [facility] Rx#: [id number] Ancef 2 GM Premix Inj 2 gm In 100 / 100 50 / 50 50 ml @ 100 mls/hr IV.SIG Q8H [facility] Rx#:[id number] Oral 480 / 480 480 / 480 Anesthesia Amount 1200 / 1200 Output: Urine 1000 / 1000 Urine Amount (Catheter) 1500 / 1500 1750 / 1750 Indwelling Urethral Catheter 1500 / 1500 1750 / 1750 Other: Date of Last Bowel Movement 05/21/18 Weight On Admission 85.4 kg Narrative: Not in distress Scalp wound, rashel in place, clean, no discharge Pupils round reactive Regular rate and rhythm, no murmurs Clear breath sounds Abdomen soft nontender No edema Alert awake and oriented 3, no focal deficits. - Urinary Catheter Management Indwelling Urethral Catheter Cath placed during this visit: yes, but has since been removed by the nurse Reason for continuing: Decision to DC catheter Insertion date: 05/22/18 Insertion time: 10:00 Removal date: 05/23/18 Removal time: 06:30 Results - Labs CBC & Chem 7: 05/23/18 07:31 Laboratory Results - last 24 hr 05/22/18 05/22/18 05/22/18 14:08 16:11 21:27 POC Glucose 157 H 164 H 169 H 05/23/18 08:00 POC Glucose 120 H Microbiology 05/22/18 10:00 Shunt Fluid Gram Stain - Final Assessment and Plan - Plan A/P NPH- s/p HOSE MAKER shunt placement- management per neurosurgery Alcohol abuse; continue multivitamin and thiamine- [facility] protocol- watch for withdrawal. hypertension/ CAD - cont norvasc and lisinopril, BP fluctuation could be from pain/anxiety, start vasotec as needed, increase lisinopril to 40 mg daily. diabetes mellitus- cont home meds, BGs stabe, cont accu-check with SSI. DVT prophylaxis; per neurosurgery.
[2018-05-23] MEDS: Sod Chloride 0.9% Inj 1,000 ML IV.SIG SCH (08:25)
[2018-05-23] MEDS: amLODIPine 10 MG Tablet PO SCH (08:28)
[2018-05-23] MEDS: Senna/Docusate Sodium 8.6/50 MG Tablet PO SCH ×2 (08:28→20:16)
[2018-05-23] MEDS: Folic Acid 1 MG Tablet PO SCH (08:28)
[2018-05-23 08:47] LABS: Baso % (Auto) 0.3 % (0.0-2.0); Hematocrit 42.8 % (39.0-51.0); Hemoglobin 14.5 gm/dL (13.0-17.0); Lymph # (Auto) 0.9 th/mm3 (1.0-4.8); Lymph % (Auto) 7.3 % (9.0-44.0); Mean Corpuscular HGB Conc 33.9 % (32.0-36.0); Mean Corpuscular Hemoglobin 29.7 pg (27.0-34.0); Mean Corpuscular Volume 87.4 fL (80.0-100.0); Mean Platelet Volume 8.2 fL (7.0-11.0); Mono # (Auto) 1.1 th/mm3 (0.0-0.9); Mono % (Auto) 8.5 % (0.0-8.0); Neut # (Auto) 10.6 th/mm3 (1.8-7.7); Neut % (Auto) 83.9 % (16.0-70.0); Platelet Count 209 th/mm3 (150-450); Red Cell Distribution Width 13.8 % (11.6-17.2); White Blood Count 12.6 th/mm3 (4.0-11.0)
[2018-05-23] MEDS ORDERED: Lisinopril 20 MG Tablet PO SCH (09:00)
[2018-05-23] MEDS: Insulin NovoLOG Aspart Correctional Sugar Inj SQ SCH ×4 (09:00→22:22)
[2018-05-23] MEDS: Sod Chloride 0.9% Inj 1,000 ML IV.CONT SCH ×2 (09:01→16:49)
[2018-05-23 09:10] LABS: Magnesium 2.1 mg/dL (1.5-2.5); Phosphorus 3.8 mg/dL (2.5-4.9)
--- NOTE | 2018-05-23 12:57 | P.PNNS ---
Subjective Interval history: Pt awake and alert. Complains of frontal headache. No nausea or vomiting. Pt states gait feels unchanged currently. Physical Exam Vital signs: Vital Signs 05/22/18 13:00 05/22/18 13:30 05/22/18 14:00 Temperature 98.0 F 98.0 F 98.0 F Pulse Rate 65 66 66 Respiratory Rate 14 14 14 Blood Pressure 165/77 H 153/76 H 151/73 H Pulse Oximetry 94 L 93 L 94 L 05/22/18 14:25 05/22/18 15:35 05/22/18 20:00 Temperature 98.0 F 98.9 F 97.7 F Pulse Rate 70 81 72 Respiratory Rate 14 18 20 Blood Pressure 151/73 H 148/76 H 152/75 H Pulse Oximetry 94 L 94 L 95 05/23/18 00:00 05/23/18 04:00 05/23/18 08:00 Temperature 97.6 F 97.6 F 97.8 F Pulse Rate 73 64 63 Respiratory Rate 18 18 18 Blood Pressure 136/64 165/79 H 155/82 H Pulse Oximetry 93 L 98 95 05/23/18 12:00 Temperature 97.3 F L Pulse Rate 64 Respiratory Rate 17 Blood Pressure 158/73 H Pulse Oximetry 98 Intake & Output 05/22/18 05/23/18 05/23/18 18:59 06:59 18:59 Intake Total 2014 2295 / 2295 50 / 50 Output Total 1500 / 1500 1000 / 1000 1750 / 1750 Balance 515 / 515 1295 / 1295 -1700 / -1700 Weight 91.9 kg 93 kg Intake: IV 335 / 335 1815 / 1815 50 / 50 NS Inj 1,000 ML @ 100 mls/hr IV 235 / 235 765 / 765 .CONT .Q10H [facility] Rx#:[id number] LR 1000 mL Inj 1,000 ML @ 30 1000 / 1000 mls/hr IV.SIG .Q24H [facility] Rx#: [id number] Ancef 2 GM Premix Inj 2 gm In 100 / 100 50 / 50 50 / 50 50 ml @ 100 mls/hr IV.SIG Q8H [facility] Rx#:[id number] Oral 480 / 480 480 / 480 Anesthesia Amount 1200 / 1200 Output: Urine 1000 / 1000 Urine Amount (Catheter) 1500 / 1500 1750 / 1750 Indwelling Urethral Catheter 1500 / 1500 1750 / 1750 Other: Date of Last Bowel Movement 05/21/18 Weight On Admission 85.4 kg - Constitutional no acute distress, average body habitus - Routine HEENT Exam Head: Absent: atraumatic (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 Absent: conjunctival icterus - Routine Respiratory Exam Present: CTA bilaterally. Absent: respiratory distress, rhonchi, wheezes - Routine Cardiovascular Exam Present: RRR, S1, S2. Absent: murmur - Routine Abdominal Exam Present: normoactive bowel sounds. Absent: distended Comments: Abdominal incision bandage dry and intact. - Routine Skin Exam Present: scars (Right frontal, post auricular, and abdominal incisions cleand and dry.). Absent: cyanosis, erythema - Routine Neurological Exam Present: alert, oriented X3, moving all extremities, normal speech. Absent: motor deficit, altered mental status, facial asymmetry - Detailed Neurological Exam: Coma Scale Eye Opening: Spontaneous Verbal Response: Oriented Motor Response: Obey commands Santosh Coma Scale Total: 15 - Routine Psychiatric Exam Present: normal affect. Absent: agitated - Urinary Catheter Management Indwelling Urethral Catheter Cath placed during this visit: yes, but has since been removed by the nurse Reason for continuing: Decision to DC catheter Insertion date: 05/22/18 Insertion time: 10:00 Removal date: 05/23/18 Removal time: 06:30 Assessment and Plan - Assessment (1) Hydrocephalus Code(s): G91.9 - Hydrocephalus, unspecified Status: Acute - Plan Pt was scheduled for follow up CT head this morning but was not done. CT was notified by RN to obtain this afternoon. Had Ayon removed but has not urinated yet. Continue with PT Anticipate Discharge tomorrow am. Pt states he plans to stay with family.
--- NOTE | 2018-05-23 14:32 | CT ---
EXAM DATE: 05/23/2018 2:09 PM EDT AGE/SEX: 67 years / Male INDICATIONS: S/P MUCK MINER shunt. CLINICAL DATA: This is the patient's initial encounter. Patient reports that signs and symptoms have been present for 1 day and indicates a pain score of 0/10. MEDICAL/SURGICAL HISTORY: Cardiovascular disease. Diabetes. hydrocephalus CABG. MUCK MINER shunt RADIATION DOSE: 46.39 CTDI (mGy) COMPARISON: [facility] [place], CT BRAIN W/O CONTRAST, 04/23/2018. . TECHNIQUE: CT of the head without contrast. Using automated exposure control and adjustment of the mA and/or kV according to patient size, radiation dose was kept as low as reasonably achievable to ob tain optimal diagnostic quality images. DICOM format image data is available electronically for revi ew and comparison. FINDINGS: Cerebrum: Ventriculostomy catheter enters via the right frontal region with the tip projected in the body of the left lateral ventricle. Minimal amount of extra-axial gas adjacent to the entry site and at the right highest convexity. The ventricles are prominent, but symmetric in size. There is good g ray-white matter differentiation. No evidence of midline shift. Previously noted hypodensity in the h ighest convexity on the left side has resolved. Posterior Fossa: The cerebellum and brainstem are intact. The 4th ventricle is midline. The cerebe llopontine angle is unremarkable. Extracranial: The visualized portion of the orbits is intact. Skull: Scalp gas adjacent to the course of the ventriculostomy catheter and reservoir. Smooth sparkle h ole no calvarial defect other than the sparkle hole for the catheter. CONCLUSION: 1. Expected postsurgical findings from placement of right frontal ventriculostomy with tip in the abebe dy of the left lateral ventricle. . Electronically signed by: Nigel Velazquez MD 05/23/2018 2:31 PM EDT
[2018-05-23] MEDS: Lisinopril 20 MG Tablet PO SCH (20:17)
[2018-05-24 05:08] VITALS: O2SAT 96
[2018-05-24 06:52] VITALS: RESP 18
[2018-05-24] MEDS: Insulin NovoLOG Aspart Correctional Sugar Inj SQ SCH ×2 (07:46→11:35)
[2018-05-24] MEDS: Sod Chloride 0.9% Inj 1,000 ML IV.CONT SCH ×2 (08:09→13:29)
[2018-05-24] MEDS: Sod Chloride 0.9% Inj 1,000 ML IV.SIG SCH (08:09)
[2018-05-24] MEDS: Folic Acid 1 MG Tablet PO SCH (08:54)
[2018-05-24] MEDS: Lisinopril 20 MG Tablet PO SCH (08:54)
[2018-05-24] MEDS: Senna/Docusate Sodium 8.6/50 MG Tablet PO SCH (08:54)
[2018-05-24] MEDS: amLODIPine 10 MG Tablet PO SCH (08:54)
[2018-05-24 09:56] VITALS: TEMP 97.8
--- NOTE | 2018-05-24 10:00 | P.PNIM ---
Subjective Interval history: Mild headache, no chest pain or shortness of breath. Blood pressure is elevated. Has not received his antihypertensives. Physical Exam Vital signs: Vital Signs 05/23/18 12:00 05/23/18 17:02 05/23/18 17:33 Temperature 97.3 F L Pulse Rate 64 79 77 Respiratory Rate 17 Blood Pressure 158/73 H 154/74 H 180/88 H Pulse Oximetry 98 05/23/18 19:22 05/23/18 20:00 05/24/18 00:00 Temperature 97.9 F 98 F Pulse Rate 76 75 Respiratory Rate 19 16 Blood Pressure 174/80 H 161/76 H 154/70 H Pulse Oximetry 97 98 05/24/18 04:00 05/24/18 06:51 05/24/18 08:00 Temperature 98 F 97.8 F Pulse Rate 64 72 Respiratory Rate 17 18 17 Blood Pressure 152/72 H 180/88 H Pulse Oximetry 96 96 05/24/18 08:55 Temperature Pulse Rate 67 Respiratory Rate 18 Blood Pressure 161/80 H Pulse Oximetry Intake & Output 05/23/18 05/24/18 05/24/18 18:59 06:59 18:59 Intake Total 50 / 50 240 / 240 Output Total 2049 / 2049 Balance -1999 / -1999 240 / 240 Weight 93.2 kg Intake: IV 50 / 50 Ancef 2 GM Premix Inj 2 gm In 50 / 50 50 ml @ 100 mls/hr IV.SIG Q8H [facility] Rx#:[id number] Oral 240 / 240 Output: Urine 300 / 300 Urine Amount (Catheter) 1750 / 1750 Indwelling Urethral Catheter 1750 / 1750 Other: # Voids 1 Date of Last Bowel Movement 05/21/18 Narrative: Not in distress Scalp wound, rashel in place, clean, no discharge Pupils round reactive Regular rate and rhythm, no murmurs Clear breath sounds Abdomen soft nontender No edema Alert awake and oriented 3, no focal deficits. - Urinary Catheter Management Indwelling Urethral Catheter Cath placed during this visit: yes, but has since been removed by the nurse Reason for continuing: Decision to DC catheter Insertion date: 05/22/18 Insertion time: 10:00 Removal date: 05/23/18 Removal time: 07:00 Results - Labs CBC & Chem 7: 05/23/18 07:31 Laboratory Results - last 24 hr 05/23/18 05/23/18 05/23/18 07:31 11:53 16:48 Diff Scan Auto diff confirmed POC Glucose 115 H 116 H 05/23/18 05/24/18 22:14 07:41 Diff Scan POC Glucose 117 H 156 H Microbiology 05/22/18 10:00 Shunt Fluid Gram Stain - Final 05/22/18 10:00 Shunt Fluid CSF Culture - Preliminary No growth in 48 hours - Imaging Impressions Head CT 05/23/18 06:00 CONCLUSION: 1. Expected postsurgical findings from placement of right frontal ventriculostomy with tip in the body of the left lateral ventricle. . Assessment and Plan - Plan This is a 67-year-old male with history of NPH, admitted for REHABILITATION CLERK shunt placement , we were consulted for management of chronic medical conditions including hypertension. NPH- s/p REHABILITATION CLERK shunt placement- management per neurosurgery Alcohol abuse; continue multivitamin and thiamine, drinks beer daily hypertension/ CAD -hypertension uncontrolled, cont norvasc and lisinopril, BP fluctuation could be from pain/anxiety, continue Vasotec as needed, increased lisinopril to 40 mg daily. Monitor for now. Discharge on higher dose of lisinopril. diabetes mellitus- cont home meds, BGs stabe, cont accu-check with SSI. DVT prophylaxis; per neurosurgery.
--- NOTE | 2018-05-24 10:46 | P.PNNS ---
Subjective Interval history: Pt awake and alert. Mild headache. No nausea or vomiting. States gait mild improvement. He would like to go to rehab since he lives alone. His blood pressure has also been labile. Physical Exam Vital signs: Vital Signs 05/23/18 12:00 05/23/18 17:02 05/23/18 17:33 Temperature 97.3 F L Pulse Rate 64 79 77 Respiratory Rate 17 Blood Pressure 158/73 H 154/74 H 180/88 H Pulse Oximetry 98 05/23/18 19:22 05/23/18 20:00 05/24/18 00:00 Temperature 97.9 F 98 F Pulse Rate 76 75 Respiratory Rate 19 16 Blood Pressure 174/80 H 161/76 H 154/70 H Pulse Oximetry 97 98 05/24/18 04:00 05/24/18 06:51 05/24/18 08:00 Temperature 98 F 97.8 F Pulse Rate 64 72 Respiratory Rate 17 18 17 Blood Pressure 152/72 H 180/88 H Pulse Oximetry 96 96 05/24/18 08:55 Temperature Pulse Rate 67 Respiratory Rate 18 Blood Pressure 161/80 H Pulse Oximetry Intake & Output 05/23/18 05/24/18 05/24/18 18:59 06:59 18:59 Intake Total 50 / 50 240 / 240 Output Total 2049 Balance -1999 / -1999 240 / 240 Weight 93.2 kg Intake: IV 50 / 50 Ancef 2 GM Premix Inj 2 gm In 50 / 50 50 ml @ 100 mls/hr IV.SIG Q8H [facility] Rx#:[id number] Oral 240 / 240 Output: Urine 300 / 300 Urine Amount (Catheter) 1750 / 1750 Indwelling Urethral Catheter 1749 / 1749 Other: # Voids 1 Date of Last Bowel Movement 05/21/18 - Constitutional no acute distress, average body habitus, cooperative - Routine HEENT Exam Head: Absent: normocephalic (Right frontal shunt incision clean and dry.) Eye: Present: PERRL. Absent: conjunctival icterus - Routine Respiratory Exam Present: CTA bilaterally. Absent: rales, respiratory distress, rhonchi - Routine Cardiovascular Exam Present: RRR, S1, S2. Absent: murmur - Routine Abdominal Exam Present: soft, normoactive bowel sounds. Absent: tenderness - Routine Skin Exam Present: intact (Incisions scalp and abdomen clean and dry.). Absent: cyanosis , erythema - Routine Neurological Exam Present: alert, motor deficit (Pt has chronic inability to open right hand he states from a previous shoulder injury. Strength otherwise good in extremities. ), normal speech. Absent: altered mental status - Routine Psychiatric Exam Present: normal affect - Urinary Catheter Management Indwelling Urethral Catheter Cath placed during this visit: yes, but has since been removed by the nurse Reason for continuing: Decision to DC catheter Insertion date: 05/22/18 Insertion time: 10:00 Removal date: 05/23/18 Removal time: 07:00 Assessment and Plan - Assessment (1) Hydrocephalus Code(s): G91.9 - Hydrocephalus, unspecified Status: Acute - Plan Pt with labile blood pressure responds to prn medication. He reports mild improvement in his gait. He lives alone and would benefit from inpatient rehab. Pt agrees and family also reportedly agrees.
[2018-05-24 11:54] VITALS: BP 141/67; PULSE 74
--- NOTE | 2018-05-25 09:07 | P.DS ---
Date of admission: 05/22/18 06:22 Primary care physician: Candace Abdullahi DO Brief History from admission: Mr Alvarez is a 67 year old male with history of normal pressure hydrocephalus who presented with progressive gait imbalance and short term memory loss. He had chronic communicating hydrocephalus and his condition was getting progressively worse. He underwent evaluation with placement of a lumbar drain and cerebrospinal fluid drainage with very significant improvement in her symptoms. A ventriculoperitoneal shunt was indicated DS: Medications - Discharge Medications Prescriptions: lisinopril 20 mg PO BID #60 tab DS: Summary Hospital Course: Mr. Alvarez underwent a Ventriculoperitoneal shunt placement on 05/22/18. He was discharged in stable conditions. 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 Expected postsurgical findings from placement of right frontal ventriculostomy with tip in the body of the left lateral ventricle. . Discharge Plan - Discharge Disposition Patient Disposition: 60 Rehab Inpatient - Discharge Condition Condition: Good - Discharge Order Discharge Orders: Discharge Order (Routine); Ordered 05/22/18 Ordered By: Maryse Gutiérrez - Discharge Details Anticipated Discharge Date: 05/24/18 - Physicians Team Primary Care Provider: Candace Abdullahi Attending Provider: Ruben Hudson Other Providers: Piter Valentine MD - Rxs /Orders / Referrals /Forms Prescriptions: New lisinopril 20 mg Tablet 20 mg PO BID Qty: 60 RF: 0 Continue amlodipine 10 mg Tablet 10 mg PO DAILY folic acid 1 mg Tablet 1 mg PO DAILY metformin 500 mg Tablet Extended Release 24 Hr 500 mg PO DAILY [id number]-[id number]-FA-vit K [Adults Multivitamin] 18 mg iron-400 mcg-25 mcg Tablet 1 tab PO DAILY pioglitazone 30 mg Tablet 30 mg PO DAILY thiamine HCl (vitamin B1) 100 mg Tablet 100 mg PO DAILY Discontinued lisinopril 20 mg Tablet 20 mg PO DAILY Referrals: Candace Abdullahi, [Primary Care Provider] - See Instructions ( Please call the physician's office to book the appointment to be seen within [].) - Post Discharge Care Plan Care Plan Goals: Your Health Problems: Goals to Promote Your Health: * To prevent worsening of your condition * To maintain your health at the optimal level Directions to Meet Your Goals: * Take your medications as prescribed * Follow your dietary instruction * Follow activity as directed * Keep your appointments as scheduled * Take your immunizations and boosters as scheduled * If your symptoms worsen call your PCP * If no PCP go to Urgent Care or Emergency Room Smoking is dangerous to your health. Avoid second hand smoke. You may reach the 24-hour crisis hotline for domestic abuse at .
== END 2018-05-24 15:06 ==
LOC: HSDI 06:22 → N05 14:29
PROVIDERS: ADMIT Neurological Surgery; ATTEND Neurological Surgery

== ENCOUNTER 2018-06-24 04:52 | Inpatient (IN) ==
--- NOTE | 2018-06-24 05:44 | ED ---
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 The patient is accompanied to this emergency department visit by his son who he resides with. His son reports that he was recently diagnosed with normal pressure hydrocephalus and had a shunt placed by Dr. Hudson on May 22, 2018. The patient went to rehabilitation after the shunt placement. The patient had his first follow-up appointment with the physician occupational therapist assistant at Dr. Hudson's office yesterday. The patient's wound overlying the shunt was noted to be dehisced with a small amount of the shunt able to be visualized done in the wound. The patient's family was instructed that they would need to follow back up the next day in the office for recheck with Dr. Hudson. After going home the shunt began to slowly migrate out of the wound. The patient's family reapplied a bandage prior to arrival. They deny having any the patient denies having any pain. He denies having any recent fevers or chills. He denies having any nausea or vomiting. He denies having any visual changes. He denies having any numbness or tingling to his extremities. He denies having any weakness of his extremities. On review of systems otherwise, the patient denies having any recent cough, congestion, neck pain, chest pain, shortness of breath, abdominal pain, diarrhea, or urinary symptoms. Related Data Home Medications Medication Instructions Recorded Confirmed lisinopril 20 mg PO DAILY 06/24/18 06/24/18 Previous Rx's Medication Instructions Recorded acetaminophen 650 mg PO Q4H PRN #100 tab 06/01/18 amlodipine 10 mg PO DAILY #30 tab 06/01/18 folic acid 1 mg PO DAILY #30 tab 06/01/18 hydralazine 10 mg PO TID #90 tab 06/01/18 metformin 500 mg PO DAILY #30 tab 06/01/18 daiqctiesljl-wsz-gxvm-FA-vit K 1 tab PO DAILY #30 tab 06/01/18 [Adults Multivitamin] pioglitazone 30 mg PO DAILY #30 tab 06/01/18 sennosides-docusate sodium [Senna 1 tab PO BID #60 tab 06/01/18 Plus] tamsulosin 0.4 mg PO DAILY@18 #30 cap 06/01/18 thiamine HCl (vitamin B1) 100 mg PO DAILY #30 tab 06/01/18 Allergies Allergy/AdvReac Type Severity Reaction Status Date / Time No Known Allergies Allergy Verified 05/24/18 17:50 Review of Systems ROS: all other systems reviewed are negative (Except that which was mentioned in the HPI.) [facility] Medical History Medical History History of angina (Acute) Colonoscopy planned (Acute) History of lumbar puncture (Acute) Hydrocephalus (Acute) ETOH abuse (Acute) Contracture, right hand (Acute) Diabetes (Acute) CAD (coronary artery disease) (Acute) Surgical History Surgical History H/O elbow surgery (Acute) S/P right knee arthroscopy (Acute) Hx of CABG (Acute) Family History Family History Sister Family history of cancer Social History Social History Substance History: No History of Abuse Second Hand Smoke Exposure: No Smoking Status: Never smoker How Often Do You Have a Drink Containing Alcohol: 4 or more times a week Hx Recent Travel: No Recent Travel in [facility] within the Last 8 Weeks: No Recent Out of Country Travel within the Last 8 Weeks: No Immunization History Tetanus Immunization: Unsure Tetanus Immunization Year if Known: 2015 Hx Influenza Vaccine This Season: Yes Exam Const General: cooperative, no acute distress and well developed Nutritional Appearance: well nourished Orientation: alert, awake and oriented x3 HENMT Head: normocephalic and other (The patient has a bandage in place that was slowly removed. The patient has a ACQUISITIONS ANALYST shunt wound along the right side of the scalp. From the wound a shunt is noted to be hanging. The shunt tubing is approximately 1 foot out of the head with the proximal aspect still in place. The distal end of the s) Nose: no nasal discharge and no epistaxis Mouth: moist mucous membranes Throat: posterior oropharynx normal and uvula midline Eyes Sclera: normal sclerae Pupils: PERRL Neck Neck: no meningeal signs, trachea midline and no JVD Resp Effort & Inspection: no use of accessory muscles Auscultation: clear to auscultation bilaterally Cardio Rate: regular rate Rhythm: regular rhythm Heart Sounds: no murmurs GI Inspection: non-distended Palpation: soft, no hepatosplenomegaly and nontender Back/Spine/Pelvis Back: no CVA tenderness Skin General: dry skin (warm) Neuro General: alert, awake and oriented x3 Cranial Nerves: CN's II-XI intact bilaterally Speech: speech normal Motor: strength 5/5 throughout and no movement abnormalities noted Sensory Exam: no sensory deficits noted Extrem General: normal to inspection (No calf tenderness on palpation. 2+ pulses in all 4 extremities.), no clubbing, no cyanosis and edema (Trace pedal edema. The patient has slightly greater edema in the left leg compared to the right which the patient's son reports is chronic. The patient also has hyperpigmentation to the skin of the left leg compared to the right related to venous stasis changes.) Laterality: bilaterally Psych Mood: congruent mood Affect: normal affect Judgment: judgment good Course Consultations Consultation #1: The patient's case was initially discussed with Dr. Ricci, however he reported that the patient's case should be discussed with Dr. Hudson as the patient is his private patient and Dr. Hudson is reportedly in [facility]. A call has been placed out to Dr. Hudson. Time: 05:41 Consultation #2: The patient's case including history, pertinent physical examination findings, and laboratory studies were discussed with Dr. Hudson. It was agreed that the patient would be admitted to the hospitalist service. He agreed that the patient should be started on antibiotic. He requested that the patient be placed on antibiotic. He was agreeable with the plan for the patient to be admitted to a floor bed. Time: 05:45 Consultation #3: The patient's case including history, pertinent physical examination findings, and laboratory studies were discussed with Dr. Myers. It was agreed that the patient would be admitted to the hospitalist service. Initial Documented Vital Signs Temperature 98.4 F 06/24/18 04:55 Pulse Rate 75 06/24/18 04:55 Respiratory Rate 18 06/24/18 04:55 Blood Pressure 147/70 H 06/24/18 04:55 Pulse Oximetry 97 06/24/18 04:55 Last Documented Vital Signs Temperature 98.4 F 06/24/18 04:55 Pulse Rate 65 06/24/18 06:32 Respiratory Rate 18 06/24/18 06:32 Blood Pressure 147/67 H 06/24/18 06:32 Pulse Oximetry 97 06/24/18 06:32 Medical Decision Making MDM Narrative Medical decision making narrative: During the course of the patient's emergency department visit, the patient's history, examination, and differential diagnosis were reviewed with the patient. The patient was placed on a environmental monitoring specialist with oximetry and frequent blood pressure monitoring. The patient had IV access obtained and blood work sent for analysis. The patient was initially provided Ancef 1 g IV per the recommendations of the neurosurgeon. Diagnostic studies were remarkable for a white count of 6.6, platelets 212, monocytosis at 9.3, hemoglobin 14.1, PT 10.3, PTT 28.3, chemistry is remarkable for a sodium of 133, BUN 5, AST 14. The patient's case was discussed with the neurosurgeon that place a ACQUISITIONS ANALYST shunt. He requested that the patient be admitted to the hospitalist service. The patient's results were discussed with the patient, including the plan of care. I explained that further testing and/ or monitoring is indicated based on the patient's history, examination, and/ or laboratory findings. Therefore, I recommended admission for additional evaluation. The patient expressed understanding and was agreeable with this plan. The patient was admitted to the hospital in stable condition and sent to a bed under the care of the [facility] service. Medical Screen Exam Complete: Yes Emergency Medical Condition: Yes Differential Diagnosis Differential Diagnosis: Wound dehiscence, versus shunt migration out of peritoneum Medical Records Medical records reviewed: Yes I reviewed the patient's medical records. Lab Data Lab results reviewed: Yes I reviewed the patient's lab results. Result diagrams: 06/24/18 06:12 06/24/18 06:12 Lab Results 06/24/18 06/24/18 06/24/18 Range/Units 06:12 06:12 06:12 WBC 6.6 (4.0-11.0) th/mm3 RBC 4.63 (4.50-5.90) mil/mm3 Hgb 14.1 (13.0-17.0) gm/dL Hct 40.7 (39.0-51.0) % MCV 88.0 (80.0-100.0) fL MCH 30.5 (27.0-34.0) pg MCHC 34.6 (32.0-36.0) % RDW 14.8 (11.6-17.2) % Plt Count 212 (150-450) th/mm3 MPV 6.8 L (7.0-11.0) fL Neut % (Auto) 69.3 (16.0-70.0) % Lymph % (Auto) 17.9 (9.0-44.0) % Bee % (Auto) 9.3 H (0.0-8.0) % Eos % (Auto) 2.8 (0.0-4.0) % Baso % (Auto) 0.7 (0.0-2.0) % Neut # (Auto) 4.6 (1.8-7.7) th/mm3 Lymph # (Auto) 1.2 (1.0-4.8) th/mm3 Bee # (Auto) 0.6 (0.0-0.9) th/mm3 Eos # (Auto) 0.2 (0.0-0.4) th/mm3 Baso # (Auto) 0.0 (0.0-0.2) th/mm3 WBC Differential . Differential Comment Auto diff final PT 10.3 (9.8-11.6) sec INR 1.0 Ratio APTT 28.3 (24.3-30.1) sec Sodium 133 L (136-145) meq/L Potassium 4.2 (3.5-5.1) meq/L Chloride 99 (98-107) meq/L Carbon Dioxide 27.9 (21.0-32.0) meq/L Anion Gap 6 (5-15) meq/L BUN 5 L (7-18) mg/dL Creatinine 0.71 (0.60-1.30) mg/dL Estimated GFR Greater than 89 (>89) mL/min Random Glucose 101 (74-106) mg/dL Calcium 8.7 (8.5-10.1) mg/dL Total Bilirubin 0.6 (0.2-1.0) mg/dL AST 14 L (15-37) U/L ALT 13 (12-78) U/L Alkaline Phosphatase 79 (45-117) U/L Total Protein 7.4 (6.4-8.2) g/dL Albumin 3.7 (3.4-5.0) g/dL Discharge Plan Discharge Disposition Patient Disposition: 30 Still Patient Discharge Details Diagnosis: Post-operative complication Physicians Team ED Provider: Lindsey Walter Primary Care Provider: Candace Abdullahi Attending Provider: Mallory Myers Other Providers: Ruben Hudson Discharge Interventions Interventions: ED Discharge Assessment Last Done: 06/24/18 07:43 Status ED Status: Left Department Discharge Information Discharge Date/Time: 06/24/18 07:43
[2018-06-24] MEDS ORDERED: Sod Chloride 0.9% Inj 1,000 ML IV.CONT SCH (06:00)
[2018-06-24] MEDS ORDERED: Bisacodyl 10 MG Supp RECTAL PRN ×2 (06:09→13:36)
[2018-06-24 06:29] LABS: Baso % (Auto) 0.7 % (0.0-2.0); Eos # (Auto) 0.2 th/mm3 (0.0-0.4); Eos % (Auto) 2.8 % (0.0-4.0); Hematocrit 40.7 % (39.0-51.0); Hemoglobin 14.1 gm/dL (13.0-17.0); Lymph # (Auto) 1.2 th/mm3 (1.0-4.8); Lymph % (Auto) 17.9 % (9.0-44.0); Mean Corpuscular HGB Conc 34.6 % (32.0-36.0); Mean Corpuscular Hemoglobin 30.5 pg (27.0-34.0); Mean Platelet Volume 6.8 fL (7.0-11.0); Mono # (Auto) 0.6 th/mm3 (0.0-0.9); Mono % (Auto) 9.3 % (0.0-8.0); Neut # (Auto) 4.6 th/mm3 (1.8-7.7); Neut % (Auto) 69.3 % (16.0-70.0); Platelet Count 212 th/mm3 (150-450); Red Blood Count 4.63 mil/mm3 (4.50-5.90); Red Cell Distribution Width 14.8 % (11.6-17.2); White Blood Count 6.6 th/mm3 (4.0-11.0)
[2018-06-24 06:39] LABS: Alanine Aminotransferase 13 U/L (12-78); Albumin 3.7 g/dL (3.4-5.0); Anion Gap 6 meq/L (5-15); Aspartate Aminotransferase 14 U/L (15-37); Blood Urea Nitrogen 5 mg/dL (7-18); Calcium 8.7 mg/dL (8.5-10.1); Carbon Dioxide 27.9 meq/L (21.0-32.0); Chloride 99 meq/L (98-107); Glomerular Filtration Rate Greater Than 89 mL/min (>89); Glucose,Random 101 mg/dL (74-106); Potassium 4.2 meq/L (3.5-5.1); Sodium 133 meq/L (136-145)
[2018-06-24 06:41] LABS: Alkaline Phosphatase 79 U/L (45-117); Total Protein 7.4 g/dL (6.4-8.2)
[2018-06-24 07:06] LABS: Activated Partial Thrombo Time 28.3 sec (24.3-30.1); Prothrombin Time 10.3 sec (9.8-11.6)
--- NOTE | 2018-06-24 09:21 | P.CONNS ---
History of Present Illness Service: Neurosurgery Primary Care Provider: Candace Abdullahi DO History of Present Illness: Mr. Sutherland is a 67 year old male who underwent placement of right ventriculoperitoneal shunt on 05/22/18. He was seen yesterday in the office for a postoperative follow up visit. It was noted that right posterior scalp wound has opened and small area of the shunt catheter was visualized but intact. His wound was cleaned well and covered. His sister reported the patient had picked at his wound. He was informed to return the following day to see Dr. Hudson. Apparently later that evening his family noted that the catheter was hanging out and so they came in the to ER. Nursing also reported that his brother in law seen patient pulling at the catheter. Review of Systems Constitutional: Denies body ache(s), Denies chills, Denies fever(s), Denies headache(s) Eyes: Denies blurry vision, Denies double vision Cardiovascular: Denies chest pain Respiratory: Denies cough, Denies coughing up blood, Denies pain on inspiration , Denies shortness of breath, Denies wheezing Gastrointestinal: Denies abdominal pain, Denies vomiting Neurologic: Reports unsteadiness, Denies headache(s) PMFSH - History History Provided By: Family Member - Medical History Medical History: Medical History (Last Reviewed 06/24/18 @ 08:30 by Lindsey Walter MD) History of angina (Acute) Colonoscopy planned (Acute) History of lumbar puncture (Acute) Hydrocephalus (Acute) ETOH abuse (Acute) Contracture, right hand (Acute) Diabetes (Acute) CAD (coronary artery disease) (Acute) - Surgical History Surgical History: Surgical History (Last Reviewed 06/24/18 @ 08:30 by Lindsey Walter MD) H/O elbow surgery (Acute) S/P right knee arthroscopy (Acute) Hx of CABG (Acute) - Family History Family History: Family History (Last Reviewed 06/24/18 @ 08:30 by Lindsey Walter MD) Sister Family history of cancer - Tobacco History Second Hand Smoke Exposure: No Smoking Status: Never smoker - Alcohol History How Often Do You Have a Drink Containing Alcohol: 4 or more times a week - Substance Use History Substance History: No History of Abuse - Travel History History of Recent Travel: No Recent Travel in the [place] Within the Last 8 Weeks: No Recent Travel Out of the Country Within the Last 8 Weeks: No - Immunization History Tetanus Immunization: Unsure Tetanus Immunization Year if Known: 2015 Hx Influenza Vaccine This Season: Yes Medications and Allergies Active Medications: Active Medications Al Hydroxide/Mg Hydroxide (Milk Of Jasper Benavidez) 30 ml PO Q12H PRN PRN Reason: Mild Constipation Bisacodyl (Dulcolax Supp) 10 mg RECTAL DAILY PRN PRN Reason: SEVERE CONSITIPATION Sodium Chloride (Ns Inj) 1,000 mls @ 70 mls/hr IV.CONT .[id number] ASHER Last Admin: 06/24/18 06:20 Dose: 70 mls/hr Cefazolin Sodium 1,000 mg/ (Sodium Chloride) 100 mls @ 200 mls/hr IV.SIG Q8H ASHER Sennosides (Senokot) 17.2 mg PO Q12H PRN PRN Reason: Moderate Constipation Allergies Allergy/AdvReac Type Severity Reaction Status Date / Time No Known Allergies Allergy Verified 05/24/18 17:50 Home Medications Medication Instructions Recorded Confirmed Type lisinopril 20 mg PO DAILY 06/24/18 06/24/18 History Exam Vital signs: Vital Signs 06/24/18 04:55 06/24/18 05:08 06/24/18 05:12 Temperature 98.4 F Pulse Rate 75 69 Respiratory Rate 18 18 18 Blood Pressure 147/70 H 147/67 H 147/67 H Pulse Oximetry 97 98 97 06/24/18 06:32 06/24/18 08:00 Temperature 97.8 F Pulse Rate 65 69 Respiratory Rate 18 20 Blood Pressure 147/67 H 167/79 H Pulse Oximetry 97 97 Intake & Output 06/23/18 06/24/18 06/24/18 18:59 06:59 18:59 Intake Total 100 / 100 Balance 100 / 100 Weight 90.718 kg Intake: IV 100 / 100 Ancef Inj 1,000 MG In NS Inj 100 / 100 100 ML @ 100 mls/hr IV.SIG ONCE ONE Rx#:[id number] Narrative: General: Well nourished. Comfortable andin no obvious distress during examination. HEENT: Normocephalic, atraumatic. Normal conjunctiva. No nasal drainage. Gross hearing intact bilaterally. No ear drainage. Right posterior scalp wound opened with distal shunt catheter pulled out Neck: No masses, no JVD. Trachea midline. Soft, supple, no meningismus or nuchal rigidity. Neuro: Awake, alert. Speech is clear and fluent. Cranial nerve examination: pupils equal, round, and reactive to light. Extra-ocular movements are intact with normal convergence. Facial motor are normal and symmetrical. Bilateral plantar flexion response. There is no clonus. Sensory examination is intact light touch in both the upper and lower extremities. Cerebellar examination normal finger to nose bilaterally. Extremities: Chronic right hand weakness and contracture. No clubbing. No peripheral edema. Lumbar spine without obvious deformities. Abdomen: surgical incision healing well. No masses. Soft, no tenderness to palpation. Lungs: Clear to auscultate bilaterally, nonlabored breathing on room air, no wheezing,rhonchi or crackles. No accessory muscle use. Heart: Regular rate and rhythm Skin: Warm and dry Results - Laboratory Findings CBC and BMP: 06/24/18 06:12 06/24/18 06:12 Abnormal lab findings: Abnormal Labs 06/24/18 06/24/18 06:12 06:12 MPV 6.8 L [place] % (Auto) 9.3 H Sodium 133 L BUN 5 L AST 14 L Assessment and Plan - Plan patient with communicating hydrocephalus underwent placement of WWE WRESTLER shunt. Patient had picked at wound and pulled drain catheter out of wound. Plan: to OR today for removal of WWE WRESTLER shunt keep NPO
[2018-06-24] MEDS ORDERED: Acetaminophen 325 MG Tablet PO PRN (10:58)
--- NOTE | 2018-06-24 10:58 | P.HPIM ---
History of Present Illness Primary Care Physician: Candace Abdullahi DO History of Present Illness: Mr. Alvarez is a 67-year-old male. He has a history of normal pressure hydrocephalus. BENCH PRECISION ASSEMBLER shunt was previously placed on May 22, 2018. Patient has been doing well as an outpatient. However recently he has noted evidence that his BENCH PRECISION ASSEMBLER shunt is migrating outward. He came to the hospital for this. Dr. Hudson is his neurosurgeon and patient will be taken to the OR today. He has no complaints when seen. No complaints of visual changes, nausea, headache, or fever. Inpatient Certification: I certify that the inpatient services were ordered in accordance with Medicare regulations governing the order. This includes certification that hospital inpatient services are reasonable and necessary and in the case of services not specified as inpatient-only under 42 CFR 419.22(n), that they are appropriately provided as inpatient services in accordance to with the 2-midnight benchmark under 43 CFR 412.3(e) Estimated Total Length of Stay (Days): 4 Plans for Post Hospital Care: Not yet determined Review of Systems Constitutional: No fevers, no chills no night sweats, no fatigue, no weakness Eyes: No eye pain, no blurry vision, no loss of vision ENT: No sore throat, no ear pain, no rhinorrhea Cardiovascular: No chest pain, no tachycardia, no palpitations, no shortness of breath, no syncope Respiratory: No wheezing, no cough, no shortness of breath Gastrointestinal: No abdominal pain, no black tarry stools, no bright red blood per rectum, no vomiting, no diarrhea Musculoskeletal: No joint pain, no muscle cramps, no stiffness Integumentary: No rash, no ulcers, no drainage Neurologic: No sensory loss, no loss of motor function, no dizziness Psychiatric: No behavioral changes, no hallucinations, no suicidal ideations PMFSH - History History Provided By: Family Member - Medical History Medical History: Medical History (Last Reviewed 06/24/18 @ 08:30 by Lindsey Walter MD) History of angina (Acute) Colonoscopy planned (Acute) History of lumbar puncture (Acute) Hydrocephalus (Acute) ETOH abuse (Acute) Contracture, right hand (Acute) Diabetes (Acute) CAD (coronary artery disease) (Acute) - Surgical History Surgical History: Surgical History (Last Reviewed 06/24/18 @ 08:30 by Lindsey Walter MD) H/O elbow surgery (Acute) S/P right knee arthroscopy (Acute) Hx of CABG (Acute) - Family History Family History: Family History (Last Reviewed 06/24/18 @ 08:30 by Lindsey Walter MD) Sister Family history of cancer - Tobacco History Second Hand Smoke Exposure: No Smoking Status: Never smoker - Alcohol History How Often Do You Have a Drink Containing Alcohol: 4 or more times a week - Substance Use History Substance History: No History of Abuse - Travel History History of Recent Travel: No Recent Travel in the [place] Within the Last 8 Weeks: No Recent Travel Out of the Country Within the Last 8 Weeks: No - Immunization History Tetanus Immunization: Unsure Tetanus Immunization Year if Known: 2015 Hx Influenza Vaccine This Season: Yes Medications and Allergies Active Medications: Active Medications Al Hydroxide/Mg Hydroxide (Milk Of Jasper Liq) 30 ml PO Q12H PRN PRN Reason: Mild Constipation Bisacodyl (Dulcolax Supp) 10 mg RECTAL DAILY PRN PRN Reason: SEVERE CONSITIPATION Sodium Chloride (Ns Inj) 1,000 mls @ 70 mls/hr IV.CONT .[id number] ASHER Last Admin: 06/24/18 06:20 Dose: 70 mls/hr Cefazolin Sodium 1,000 mg/ (Sodium Chloride) 100 mls @ 200 mls/hr IV.SIG Q8H ASHER Sennosides (Senokot) 17.2 mg PO Q12H PRN PRN Reason: Moderate Constipation Allergies Allergy/AdvReac Type Severity Reaction Status Date / Time No Known Allergies Allergy Verified 05/24/18 17:50 Home Medications Medication Instructions Recorded Confirmed Type lisinopril 20 mg PO DAILY 06/24/18 06/24/18 History Exam Vital signs: Vital Signs 06/24/18 04:55 06/24/18 05:08 06/24/18 05:12 Temperature 98.4 F Pulse Rate 75 69 Respiratory Rate 18 18 18 Blood Pressure 147/70 H 147/67 H 147/67 H Pulse Oximetry 97 98 97 06/24/18 06:32 06/24/18 08:00 Temperature 97.8 F Pulse Rate 65 69 Respiratory Rate 18 20 Blood Pressure 147/67 H 167/79 H Pulse Oximetry 97 97 Intake & Output 06/23/18 06/24/18 06/24/18 18:59 06:59 18:59 Intake Total 100 / 100 Balance 100 / 100 Weight 90.718 kg Intake: IV 100 / 100 Ancef Inj 1,000 MG In NS Inj 100 / 100 100 ML @ 100 mls/hr IV.SIG ONCE ONE Rx#:[id number] Narrative: GENERAL: NAD, A&Ox3 HEAD: Normocephalic. Scalp is bandaged, BENCH PRECISION ASSEMBLER shunt is covered. NECK: Supple, trachea midline. No lymphadenopathy. EYES: No scleral icterus. No injection or drainage. CARDIOVASCULAR: Regular rate and rhythm without murmurs, gallops, or rubs. RESPIRATORY: Breath sounds equal bilaterally. No accessory muscle use. GASTROINTESTINAL: Abdomen soft, non-tender, nondistended. MUSCULOSKELETAL: No cyanosis, or edema. SKIN: Warm and dry. NEURO: No focal neurological deficits. Results - Labs CBC & Chem 7: 06/24/18 06:12 06/24/18 06:12 Labs: Short CBC 06/24/18 Range/Units 06:12 WBC 6.6 (4.0-11.0) th/mm3 Hgb 14.1 (13.0-17.0) gm/dL Hct 40.7 (39.0-51.0) % Plt Count 212 (150-450) th/mm3 BMP 06/24/18 06:12 Sodium 133 L Potassium 4.2 Chloride 99 Carbon Dioxide 27.9 BUN 5 L Creatinine 0.71 Calcium 8.7 Liver Function 06/24/18 Range/Units 06:12 Total Bilirubin 0.6 (0.2-1.0) mg/dL AST 14 L (15-37) U/L ALT 13 (12-78) U/L Alkaline Phosphatase 79 (45-117) U/L Albumin 3.7 (3.4-5.0) g/dL Caprini VTE Risk Assessment Caprini VTE Risk Assessment: No/Low Risk (score <= 1) Caprini Risk Assessment Model: Point Value = 1 Point Value = 2 Point Value = 3 Point Value = 5 Age 41-60 Minor surgery BMI > 25 kg/m2 Swollen legs Varicose veins or History of unexplained or recurrent spontaneous Oral contraceptives or hormone replacement Sepsis (< 1 month) Serious lung disease, including pneumonia (< 1 month) Abnormal pulmonary function Acute myocardial infarction Congestive heart failure (< 1 month) History of inflammatory bowel disease Medical patient at bed rest Age 61-74 Arthroscopic surgery Major open surgery (> 45 min) Laparoscopic surgery (> 45 min) Malignancy Confined to bed (> 72 hours) Immobilizing plaster cast Central venous access Age >= 75 History of VTE Family history of VTE Factor V Leiden Prothrombin [id number] Lupus anticoagulant Anticardiolipin antibodies Elevated serum homocysteine Heparin-induced thrombocytopenia Other congenital or acquired thrombophilia Stroke (< 1 month) Elective arthroplasty Hip, pelvis, or leg fracture Acute spinal cord injury (< 1 month) Prophylaxis Regimen: Total Risk Factor Score Risk Level Prophylaxis Regimen 0-1 Low Early ambulation 2 Moderate Order ONE of the following: *Sequential Compression Device (SCD) *Heparin 5000 units SQ BID 3-4 Higher Order ONE of the following medications: *Heparin 5000 units SQ TID *Enoxaparin/Lovenox 40 mg SQ daily (WT < 150 kg, CrCl > 30 mL/min) *Enoxaparin/Lovenox 30 mg SQ daily (WT < 150 kg, CrCl > 10-29 mL/min) *Enoxaparin/Lovenox 30 mg SQ BID (WT < 150 kg, CrCl > 30 mL/min) AND/OR *Sequential Compression Device (SCD) 5 or more Highest Order ONE of the following medications: *Heparin 5000 units SQ TID (Preferred with Epidurals) *Enoxaparin/Lovenox 40 mg SQ daily (WT < 150 kg, CrCl > 30 mL/min) *Enoxaparin/Lovenox 30 mg SQ daily (WT < 150 kg, CrCl > 10-29 mL/min) *Enoxaparin/Lovenox 30 mg SQ BID (WT < 150 kg, CrCl > 30 mL/min) AND *Sequential Compression Device (SCD) Assessment and Plan - Plan 67-year-old male admitted secondary to outward migration of BENCH PRECISION ASSEMBLER shunt BENCH PRECISION ASSEMBLER shunt dislodgment Normal pressure hydrocephalus Neurosurgery consulted Patient will go to the OR today Await neurosurgical clearance prior to discharge Follow neurological status History of angina Coronary artery disease No complaints of chest pain today Monitor clinically Continue baseline treatments History of alcohol abuse No recent use Follow clinically Diabetes mellitus type 2 Follow blood sugars Insulin sliding scale Diabetic diet Chronic right hand contracture Supportive care Continue range of motion exercises DVT prophylaxis SCDs
[2018-06-24] MEDS ORDERED: Chlorhexidine Gluconate 2% 1 Pack (2 Cloths) TOPICAL SCH (11:00)
[2018-06-24] MEDS ORDERED: Sodium Chlor 0.9% Inj 500 ML IV.SIG SCH (11:00)
[2018-06-24] MEDS ORDERED: Dextrose 50% in Water 50 ML Vial IV.PUSH PRN ×2 (11:00→14:36)
[2018-06-24] MEDS ORDERED: Metoprolol Tartrate 25 MG Tablet PO SCH (11:00)
[2018-06-24] MEDS ORDERED: Gelatin Size 100 Topical Foam ONE (11:57)
[2018-06-24] MEDS ORDERED: Thrombin Topical Soln 5,000 UNIT Vial TOPICAL ONE (11:57)
[2018-06-24] MEDS ORDERED: Insulin NovoLOG Aspart Correctional Sugar Inj SQ SCH (12:00)
[2018-06-24] MEDS ORDERED: Lidocaine PF 1% Inj 5 ML Syringe INFILTRATN ONE (12:48)
[2018-06-24] MEDS ORDERED: fentaNYL Citrate Inj 100 MCG/2 ML Ampul ONE (13:43)
[2018-06-24] MEDS ORDERED: ceFAZolin 2 GM Premix Inj 2 GM/50 ML PIGGYBACK IV.SIG SCH (14:00)
--- NOTE | 2018-06-24 14:07 | P.OP ---
Preoperative Diagnosis: Ventriculoperitoneal shunt dislogement Postoperative Diagnosis: Ventriculoperitoneal shunt dislogement Date of procedure: 06/27/18 Procedure: Removal of ventriculoperitoneal shunt Surgeon: Ruben Hudson MD Telephone Exchange Operator: MARLENY Pathology: other (CSF for analysis and cultures) Operation and Findings: INTRAOPERATIVE FINDINGS: Clear cerebrospinal fluid. shunt catheter was pulled out of its wound and mechanically ruptured INDICATIONS FOR PROCEDURE: Mr Arellano is a 67 year old male with history of normal pressure hydrocephalus who presented with progressive gait imbalance and short term memory loss. He had chronic communicating hydrocephalus and his condition was getting progressively worse. He underwent evaluation with placement of a lumbar drain and cerebrospinal fluid drainage with very significant improvement in his symptoms. A ventriculoperitoneal shunt was placed. The patient has some cognitive and behavioral problems. He picket out with his fingers into his retroauricular incision and mechanically pulled out, and broke the ventricular catheter outside the wound. The shunt was grossly contaminated. removal of the ventriculoperitoneal shunt was indicated. It was not deeed safe to place a new shunt during the same procedure. The [id number] details of the procedure, its indications, alternatives, risks , and potential complications of the surgery were fully discussed with the patient and his family. They fully understood. All their questions were answered. No guarantees were given. They voiced requesting the surgery and signed informed consent.They were offered the alternative of continuing nonsurgical treatment. DETAILS OF THE SURGICAL PROCEDURE: After the induction of general anesthesia, endotracheal intubation was performed. A Ayon catheter, bilateral BANDAR hose and sequential compression devices were placed and kept throughout the procedure. The patient was positioned supine on a 30-80 table with the head over a gel doughnut. All pressure points were carefully padded with eggcrate mattress. The right frontotemporal parietal area was shaved prepped and draped in the usual sterile fashion A small incision was made in the right frontal area and the ventricular catheter was exposed. The valve was disconnected from the exposed catheter and the catheter was pulled out. Due to the gross contamination of the system and risk for developing ventriculitis, the ventricular catheter and the valve were removed. The incisions were irrigated with antibiotic solution. The skin incisions were closed using interrupted 3-0 Ethylon At the end of the procedure, the sponge, needle and instrument counts were all correct. The estimated blood was less than 10 cc. No blood transfusion was given. No intraoperative complications occurred. The patient received preoperative prophylactic antibiotics. The patient was then extubated and transferred to the recovery room in stable condition.
[2018-06-24] MEDS ORDERED: *morphine SULFATE 4 MG/ML PERIprocedure ONLY ONE (14:27)
[2018-06-24 14:42] LABS: Total Protein,CSF 31.1 mg/dL (15.0-45.0)
[2018-06-24 15:14] LABS: Neutrophils,CSF 0 %; RBC on Tube 1 10 /mm3
[2018-06-24] MEDS: Sod Chloride 0.9% Inj 1,000 ML IV.CONT SCH (15:15)
[2018-06-24] MEDS ORDERED: Lisinopril 20 MG Tablet PO ONE (15:30)
[2018-06-24] MEDS ORDERED: amLODIPine 10 MG Tablet PO ONE (15:30)
[2018-06-24] MEDS: hydrALAZINE 10 MG Tablet PO SCH (15:34)
[2018-06-24] MEDS ORDERED: ceFAZolin 2 GM Premix Inj 2 GM/50 ML PIGGYBACK IV.SIG ONE (19:01)
[2018-06-24] MEDS: Insulin NovoLOG Aspart Correctional Sugar Inj SQ SCH ×2 (19:17→20:54)
[2018-06-24] MEDS: Senna/Docusate Sodium 8.6/50 MG Tablet PO SCH (20:50)
[2018-06-24] MEDS ORDERED: Senna/Docusate Sodium 8.6/50 MG Tablet PO SCH (21:00)
[2018-06-25] MEDS: hydrALAZINE 10 MG Tablet PO SCH ×4 (01:09→18:02)
[2018-06-25] MEDS: Insulin NovoLOG Aspart Correctional Sugar Inj SQ SCH ×5 (04:04→20:42)
[2018-06-25] MEDS: Sod Chloride 0.9% Inj 1,000 ML IV.CONT SCH ×3 (04:04→20:41)
--- NOTE | 2018-06-25 08:46 | P.PNIM ---
Subjective Interval history: Mr. Alvarez is a 67-year-old male. He has a history of normal pressure hydrocephalus. PIZZAMAKER shunt was previously placed on May 22, 2018. Patient has been doing well as an outpatient. However recently he has noted evidence that his PIZZAMAKER shunt is migrating outward. He came to the hospital for this. Dr. Hudson is his neurosurgeon and patient will be taken to the OR today. He has no complaints when seen. No complaints of visual changes, nausea, headache, or fever. 06-25 HAD PIZZAMAKER SHUNT REMOVED ON 06-[address] HUDSON WILL GET LABS PT AND OT IF STABLE HOME IN NEXT 24 TO 48HOURS VS SNF Physical Exam Vital signs: Vital Signs 06/24/18 13:35 06/24/18 13:45 06/24/18 14:00 Temperature 97.4 F L Pulse Rate 71 70 67 Respiratory Rate 14 15 16 Blood Pressure 167/75 H 159/78 H 164/81 H Pulse Oximetry 100 100 96 06/24/18 14:15 06/24/18 14:30 06/24/18 14:45 Temperature 97.8 F Pulse Rate 67 66 71 Respiratory Rate 17 15 16 Blood Pressure 172/85 H 156/81 H 169/97 H Pulse Oximetry 96 96 100 06/24/18 16:00 06/24/18 20:00 06/25/18 00:45 Temperature 97.4 F L 97.3 F L 98.7 F Pulse Rate 79 81 69 Respiratory Rate 18 16 17 Blood Pressure 150/78 H 152/75 H 127/67 Pulse Oximetry 95 97 97 06/25/18 04:45 Temperature 98 F Pulse Rate 63 Respiratory Rate 17 Blood Pressure 123/77 Pulse Oximetry 98 Intake & Output 06/24/18 06/25/18 06/25/18 18:59 06:59 18:59 Intake Total 1850 / 1850 1100 / 1100 Output Total 5 / 5 0 / 0 Balance 1845 / 1845 1100 / 1100 Weight 90.8 kg Intake: IV 1850 / 1850 1100 / 1100 NS Inj 1,000 ML @ 100 mls/hr IV 1000 / 1000 1000 / 1000 .CONT .Q10H [facility] Rx#:[id number] LR 1000 mL Inj 1,000 ML @ 30 700 / 700 mls/hr IV.SIG .Q24H A[facility] Rx#: [id number] Ancef 2 GM Premix Inj 2 gm In 50 / 50 50 ml @ 100 mls/hr IV.SIG ONCE ONE Rx#:[id number] Ancef Inj 1,000 MG In NS Inj 100 / 100 100 / 100 100 ML @ 200 mls/hr IV.SIG Q8H [facility] Rx#:[id number] Oral 0 / 0 Output: Urine 0 / 0 Estimated Blood Loss 5 / 5 Other: # Voids 2 Date of Last Bowel Movement 06/21/18 # Bowel Movements 0 # Incontinent Bowel Movements 0 Narrative: GENERAL: NAD, A&Ox3 HEAD: Normocephalic. Scalp is bandaged, PIZZAMAKER shunt HAS BEEN REMOVED NECK: Supple, trachea midline. No lymphadenopathy. EYES: No scleral icterus. No injection or drainage. CARDIOVASCULAR: Regular rate and rhythm without murmurs, gallops, or rubs. S1, S2 NO S3 OR S4 RESPIRATORY: Breath sounds equal bilaterally. No accessory muscle use. GASTROINTESTINAL: Abdomen soft, non-tender, nondistended. MUSCULOSKELETAL: No cyanosis, or edema. SKIN: Warm and dry. NEURO: No focal neurological deficits. RIGHT UE HAND IS CONTRACTED Results - Labs CBC & Chem 7: 06/24/18 06:12 06/24/18 06:12 Laboratory Results - last 24 hr 06/24/18 06/24/18 06/24/18 10:30 13:14 13:14 POC Glucose 109 CSF Volume (1) 4.5 CSF Supernat Color (1) Clear CSF Gross Blood (1) ND CSF WBC (1) 0 CSF RBC (1) 10 H CSF Neutrophils % 0 CSF Glucose 58 CSF Total Protein 31.1 06/24/18 06/24/18 06/24/18 14:21 16:55 20:33 POC Glucose 106 125 H 319 H CSF Volume (1) CSF Supernat Color (1) CSF Gross Blood (1) CSF WBC (1) CSF RBC (1) CSF Neutrophils % CSF Glucose CSF Total Protein 06/24/18 06/25/18 06/25/18 20:35 03:34 07:52 POC Glucose 266 H 110 107 CSF Volume (1) CSF Supernat Color (1) CSF Gross Blood (1) CSF WBC (1) CSF RBC (1) CSF Neutrophils % CSF Glucose CSF Total Protein Microbiology 06/24/18 13:15 Shunt Fluid Gram Stain - Final - Procedures Ventriculoperitoneal shunt dislogement Date of procedure: 06/24/18 Procedure: Removal of ventriculoperitoneal shunt Surgeon: Ruben Hudson MD Data Collection Technician: MARLENY Pathology: other (CSF for analysis and cultures) Operation and Findings: INTRAOPERATIVE FINDINGS:~ Clear cerebrospinal fluid. shunt catheter was pulled out of its wound and mechanically ruptured INDICATIONS FOR PROCEDURE: Mr Arellano is a 67 year old male with history of normal pressure hydrocephalus who presented with progressive gait imbalance and short term memory loss. He had chronic communicating hydrocephalus and his condition was getting progressively worse. He underwent evaluation with placement of a lumbar drain and cerebrospinal fluid drainage with very significant improvement in his symptoms. A ventriculoperitoneal shunt was placed. The patient has some cognitive and behavioral problems. He picket out his retroauricular incision and mechanically pulled out, and broke his shunt pulling the catheter outside the wound. The shunt was grossly contaminated. removal of the ventriculoperitoneal shunt was indicated. The [id number] details of the procedure, its indications, alternatives, risks , and potential complications of the surgery were fully discussed with the patient and his family. They fully understood. All their questions were answered. No guarantees were given. They voiced requesting the surgery and signed informed consent.They were offered the alternative of continuing nonsurgical treatment. DETAILS OF THE SURGICAL PROCEDURE: After the induction of general anesthesia, endotracheal intubation was performed. A Ayon catheter, bilateral BANDAR hose and sequential compression devices were placed and kept throughout the procedure. The patient was positioned supine on a 30-80 table with the head over a gel doughnut. All pressure points were carefully padded with eggcrate mattress. The right frontotemporal parietal area was shaved prepped and draped in the usual sterile fashion A small incision was made in the right frontal area and the ventricular catheter was expossed. The valve was disconnected from the epossed catheter and the catheter was pulled out. Due to the gross contamination of the system and risk for developing ventriculitis, thye ventricular catheter and the valve were removed. The incisions were irrigated with antibiotic solution. The skin incisions were closed using interrupted 3-0 Ethylon At the end of the procedure, the sponge, needle and instrument counts were all correct. The estimated blood was less than 10 cc. No blood transfusion was given. No intraoperative complications occurred. The patient received preoperative prophylactic antibiotics. The patient was then extubated and transferred to the recovery room in stable condition. Assessment and Plan - Plan 67-year-old male admitted secondary to outward migration of PIZZAMAKER shunt PIZZAMAKER shunt dislodgment Normal pressure hydrocephalus Neurosurgery consulted Patient will go to the OR today Await neurosurgical clearance prior to discharge Follow neurological status SP SHUNT REMOVAL ON 06-24 History of angina Coronary artery disease No complaints of chest pain today Monitor clinically Continue baseline treatments History of alcohol abuse No recent use Follow clinically Diabetes mellitus type 2 Follow blood sugars Insulin sliding scale Diabetic diet Chronic right hand contracture Supportive care Continue range of motion exercises DVT prophylaxis SCDs LABS TODAY AM LABS PT AND OT MAY NEED SNF? VS [facility] RN AND PT AND CM Code Status: FULL CODE Discussed Condition With: RN AND PT AND CM Discharge Planning: ONCE CLEARED BY ALL
[2018-06-25] MEDS: Folic Acid 1 MG Tablet PO SCH (08:54)
[2018-06-25] MEDS: Lisinopril 20 MG Tablet PO SCH (08:54)
[2018-06-25] MEDS: Multivitamin/Minerals Therapeutic Tablet PO SCH (08:54)
[2018-06-25] MEDS: amLODIPine 10 MG Tablet PO SCH (08:54)
[2018-06-25] MEDS: Senna/Docusate Sodium 8.6/50 MG Tablet PO SCH ×2 (08:54→20:41)
[2018-06-25] MEDS: METFORMIN 500 MG PO SCH (08:55)
[2018-06-25 10:59] LABS: Baso % (Auto) 0.2 % (0.0-2.0); Hematocrit 42.6 % (39.0-51.0); Hemoglobin 14.5 gm/dL (13.0-17.0); Lymph # (Auto) 0.9 th/mm3 (1.0-4.8); Lymph % (Auto) 10.4 % (9.0-44.0); Mean Corpuscular Hemoglobin 30.8 pg (27.0-34.0); Mean Corpuscular Volume 90.7 fL (80.0-100.0); Mean Platelet Volume 7.4 fL (7.0-11.0); Mono # (Auto) 0.6 th/mm3 (0.0-0.9); Mono % (Auto) 6.7 % (0.0-8.0); Neut # (Auto) 7.3 th/mm3 (1.8-7.7); Neut % (Auto) 82.7 % (16.0-70.0); Platelet Count 218 th/mm3 (150-450); Red Cell Distribution Width 15.5 % (11.6-17.2); White Blood Count 8.8 th/mm3 (4.0-11.0)
[2018-06-25 12:02] LABS: Baso % (Auto) 0.4 % (0.0-2.0); Eos % (Auto) 0.1 % (0.0-4.0); Hematocrit 41.2 % (39.0-51.0); Hemoglobin 13.8 gm/dL (13.0-17.0); Lymph % (Auto) 11.2 % (9.0-44.0); Mean Corpuscular HGB Conc 33.5 % (32.0-36.0); Mean Corpuscular Hemoglobin 30.4 pg (27.0-34.0); Mean Corpuscular Volume 90.7 fL (80.0-100.0); Mean Platelet Volume 7.5 fL (7.0-11.0); Mono # (Auto) 0.7 th/mm3 (0.0-0.9); Mono % (Auto) 7.5 % (0.0-8.0); Neut # (Auto) 7.2 th/mm3 (1.8-7.7); Neut % (Auto) 80.8 % (16.0-70.0); Platelet Count 195 th/mm3 (150-450); Red Blood Count 4.54 mil/mm3 (4.50-5.90); Red Cell Distribution Width 15.4 % (11.6-17.2); White Blood Count 8.9 th/mm3 (4.0-11.0)
[2018-06-25 12:10] LABS: Albumin 3.7 g/dL (3.4-5.0); Anion Gap 10 meq/L (5-15); Aspartate Aminotransferase 13 U/L (15-37); Blood Urea Nitrogen 8 mg/dL (7-18); Calcium 8.9 mg/dL (8.5-10.1); Carbon Dioxide 25.6 meq/L (21.0-32.0); Chloride 99 meq/L (98-107); Glomerular Filtration Rate Greater Than 89 mL/min (>89); Glucose,Random 171 mg/dL (74-106); Potassium 3.9 meq/L (3.5-5.1); Sodium 135 meq/L (136-145)
[2018-06-25 12:21] LABS: Alanine Aminotransferase 13 U/L (12-78); Albumin 3.4 g/dL (3.4-5.0); Anion Gap 10 meq/L (5-15); Aspartate Aminotransferase 10 U/L (15-37); Blood Urea Nitrogen 9 mg/dL (7-18); Calcium 8.5 mg/dL (8.5-10.1); Carbon Dioxide 25.7 meq/L (21.0-32.0); Chloride 101 meq/L (98-107); Glomerular Filtration Rate Greater Than 89 mL/min (>89); Glucose,Random 129 mg/dL (74-106); Magnesium 2.2 mg/dL (1.5-2.5); Phosphorus 3.4 mg/dL (2.5-4.9); Sodium 137 meq/L (136-145)
[2018-06-25 12:22] LABS: Alanine Aminotransferase 12 U/L (12-78); Alkaline Phosphatase 69 U/L (45-117); Thyroid Stimulating Hormone 0.629 uIU/mL (0.358-3.740); Total Protein 7.3 g/dL (6.4-8.2)
[2018-06-25 12:24] LABS: Alkaline Phosphatase 66 U/L (45-117); Free T4 (Free Thyroxine) 0.95 ng/dL (0.76-1.46)
[2018-06-25 16:34] LABS: Hemoglobin A1c 5.8 % (4.3-6.0)
--- NOTE | 2018-06-25 20:03 | P.PNNS ---
Subjective Interval history: POD 1 s/p removal of right POWDER BLENDER AND POURER shunt, doing well, minimal postoperative pain Physical Exam Vital signs: Vital Signs 06/25/18 00:45 06/25/18 04:45 06/25/18 08:00 Temperature 98.7 F 98 F 97.3 F L Pulse Rate 69 63 67 Respiratory Rate 17 17 16 Blood Pressure 127/67 123/77 135/76 Pulse Oximetry 97 98 92 L 06/25/18 12:00 06/25/18 16:00 Temperature 98.3 F 97.2 F L Pulse Rate 73 78 Respiratory Rate 16 16 Blood Pressure 138/68 140/87 Pulse Oximetry 98 99 Intake & Output 06/25/18 06/25/18 06/26/18 06:59 18:59 06:59 Intake Total 1100 / 1100 1100 / 1100 Output Total 0 / 0 Balance 1100 / 1100 1100 / 1100 Weight 90.8 kg Intake: IV 1100 / 1100 1100 / 1100 NS Inj 1,000 ML @ 100 mls/hr IV 1000 / 1000 1000 / 1000 .CONT .Q10H [facility] Rx#:[id number] LR 1000 mL Inj 1,000 ML @ 30 0 / 0 mls/hr IV.SIG .Q24H [facility]ER Rx#: [id number] Ancef Inj 1,000 MG In NS Inj 100 / 100 100 / 100 100 ML @ 200 mls/hr IV.SIG Q8H [facility] Rx#:[id number] Oral 0 / 0 Output: Urine 0 / 0 Other: # Voids 2 5 Date of Last Bowel Movement 06/21/18 06/21/18 # Bowel Movements 0 # Incontinent Bowel Movements 0 Narrative: Awake, alert. wound is clean and dry. Assessment and Plan - Plan patient with communicating hydrocephalus underwent placement of POWDER BLENDER AND POURER shunt. Patient had picked at wound and pulled drain catheter out of wound. s/p removal of POWDER BLENDER AND POURER shunt 06/24/18 Plan: cont postoperative care dc sutures in 10-12 days, march f/u in office recommend SNF vs HHC and daily wound monitoring
[2018-06-26] MEDS: Insulin NovoLOG Aspart Correctional Sugar Inj SQ SCH ×3 (04:07→13:06)
[2018-06-26] MEDS: Sod Chloride 0.9% Inj 1,000 ML IV.CONT SCH (06:28)
[2018-06-26 07:49] VITALS: BP 139/74; PULSE 63; RESP 14; TEMP 97.7; O2SAT 100
[2018-06-26 08:49] LABS: Baso # (Auto) 0.1 th/mm3 (0.0-0.2); Baso % (Auto) 0.9 % (0.0-2.0); Eos % (Auto) 0.7 % (0.0-4.0); Hematocrit 41.6 % (39.0-51.0); Lymph # (Auto) 1.7 th/mm3 (1.0-4.8); Lymph % (Auto) 25.3 % (9.0-44.0); Mean Corpuscular HGB Conc 33.7 % (32.0-36.0); Mean Corpuscular Hemoglobin 30.4 pg (27.0-34.0); Mean Corpuscular Volume 90.2 fL (80.0-100.0); Mean Platelet Volume 7.3 fL (7.0-11.0); Mono # (Auto) 0.5 th/mm3 (0.0-0.9); Mono % (Auto) 7.7 % (0.0-8.0); Neut # (Auto) 4.3 th/mm3 (1.8-7.7); Neut % (Auto) 65.4 % (16.0-70.0); Platelet Count 198 th/mm3 (150-450); Red Blood Count 4.61 mil/mm3 (4.50-5.90); Red Cell Distribution Width 15.5 % (11.6-17.2); White Blood Count 6.5 th/mm3 (4.0-11.0)
[2018-06-26 08:59] LABS: Albumin 3.4 g/dL (3.4-5.0); Anion Gap 11 meq/L (5-15); Aspartate Aminotransferase 15 U/L (15-37); Blood Urea Nitrogen 9 mg/dL (7-18); Calcium 8.7 mg/dL (8.5-10.1); Carbon Dioxide 22.8 meq/L (21.0-32.0); Chloride 104 meq/L (98-107); Glomerular Filtration Rate Greater Than 89 mL/min (>89); Glucose,Random 90 mg/dL (74-106); Potassium 3.7 meq/L (3.5-5.1); Sodium 138 meq/L (136-145)
[2018-06-26 09:04] LABS: Alanine Aminotransferase 12 U/L (12-78); Alkaline Phosphatase 62 U/L (45-117); Phosphorus 3.8 mg/dL (2.5-4.9); Total Protein 6.9 g/dL (6.4-8.2)
--- NOTE | 2018-06-26 09:33 | P.DCO ---
- Physical Therapy Order: Improve ambulation - Home Health Nursing Order: Signs/symptoms of disease process, Medication education-adverse effect, Wound care and dressing changes (monitor wound daily for complications or signs of infection, patient return 10-12 days post-op Dr. Hudson office for suture removal), Nursing assessment with vital signs - Certification I have seen patient Joanne Alvarez on 06/26/18. My clinical findings support the need for the requested home health care services because: Limited mobility due to disease progression, Medication compliance is questionable, Limited ability to care for self, Impaired cognition/judgement, High risk of falls I certify that my clinical findings support that this patient is homebound because: Impaired cognitive ability/safety, Unsteady gait/balance, Unsafe to leave home unassisted
--- NOTE | 2018-06-26 09:35 | P.PNNS ---
Subjective Interval history: POD 2: doing well today, sitting up eating his breakfast, reports no surgical pain or headaches. 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 Physical Exam Vital signs: Vital Signs 06/25/18 12:00 06/25/18 16:00 06/25/18 20:00 Temperature 98.3 F 97.2 F L 97.8 F Pulse Rate 73 78 77 Respiratory Rate 16 16 16 Blood Pressure 138/68 140/87 118/56 L Pulse Oximetry 98 99 98 06/26/18 00:00 06/26/18 04:00 06/26/18 07:48 Temperature 98.4 F 97.6 F 97.7 F Pulse Rate 69 64 63 Respiratory Rate 16 18 14 Blood Pressure 149/81 H 149/70 H 139/74 Pulse Oximetry 97 97 100 Intake & Output 06/25/18 06/26/18 06/26/18 18:59 06:59 18:59 Intake Total 1100 / 1100 1200 / 1200 Balance 1100 / 1100 1200 / 1200 Weight 88.3 kg Intake: IV 1100 / 1100 1200 / 1200 NS Inj 1,000 ML @ 100 mls/hr IV 1000 / 1000 1000 / 1000 .CONT .Q10H A[facility]ER Rx#:[id number] LR 1000 mL Inj 1,000 ML @ 30 0 / 0 mls/hr IV.SIG .Q24H A[facility]ER Rx#: [id number] Ancef Inj 1,000 MG In NS Inj 100 / 100 200 / 200 100 ML @ 200 mls/hr IV.SIG Q8H [facility]ER Rx#:[id number] Other: # Voids 5 1 Date of Last Bowel Movement 06/21/18 Assessment and Plan - Assessment (1) Problem with medical care compliance Code(s): Z91.19 - Patient's noncompliance with other medical treatment and regimen Status: Acute (2) Hydrocephalus Code(s): G91.9 - Hydrocephalus, unspecified Status: Acute (3) ETOH abuse Code(s): F10.10 - Alcohol abuse, uncomplicated Status: Acute - Plan patient with communicating hydrocephalus underwent placement of ST[employer] ASS[employer]IATE shunt. Patient had picked at wound and pulled drain catheter out of wound. s/p removal of ST[employer] ASS[employer]IATE shunt 06/24/18 Plan: cont postoperative care dc sutures in 10-12 days, f/u in office recommend SNF vs C, daily wound monitoring clear to dc from NRS standpoint, f/u in office
[2018-06-26] MEDS: Lisinopril 20 MG Tablet PO SCH (09:50)
[2018-06-26] MEDS: amLODIPine 10 MG Tablet PO SCH (09:51)
[2018-06-26] MEDS: Folic Acid 1 MG Tablet PO SCH (09:51)
[2018-06-26] MEDS: hydrALAZINE 10 MG Tablet PO SCH (09:51)
[2018-06-26] MEDS: Multivitamin/Minerals Therapeutic Tablet PO SCH (09:51)
[2018-06-26] MEDS: METFORMIN 500 MG PO SCH (09:55)
[2018-06-26] MEDS: Senna/Docusate Sodium 8.6/50 MG Tablet PO SCH (09:55)
--- NOTE | 2018-06-26 10:12 | P.PNIM ---
Subjective Interval history: Mr. Alvarez is a 67-year-old male. He has a history of normal pressure hydrocephalus. WELCOME CENTER AGENT shunt was previously placed on May 22, 2018. Patient has been doing well as an outpatient. However recently he has noted evidence that his WELCOME CENTER AGENT shunt is migrating outward. He came to the hospital for this. Dr. Hudson is his neurosurgeon and patient will be taken to the OR today. He has no complaints when seen. No complaints of visual changes, nausea, headache, or fever. 06-25 HAD WELCOME CENTER AGENT SHUNT REMOVED ON 06-[address] HUDSON WILL GET LABS PT AND OT IF STABLE HOME IN NEXT 24 TO 48HOURS VS SNF 06-26 cleared by NEUROSURGERY WILL DC TO HOME WITH HHC SWITCH TO PO KEFLEX AND DC TO HOME TODAY [facility] RN AND PT AND NEUROSURGERY DC TO HOME WILL DO FACE TO FACE HHC Physical Exam Vital signs: Vital Signs 06/25/18 12:00 06/25/18 16:00 06/25/18 20:00 Temperature 98.3 F 97.2 F L 97.8 F Pulse Rate 73 78 77 Respiratory Rate 16 16 16 Blood Pressure 138/68 140/87 118/56 L Pulse Oximetry 98 99 98 06/26/18 00:00 06/26/18 04:00 06/26/18 07:48 Temperature 98.4 F 97.6 F 97.7 F Pulse Rate 69 64 63 Respiratory Rate 16 18 14 Blood Pressure 149/81 H 149/70 H 139/74 Pulse Oximetry 97 97 100 Intake & Output 06/25/18 06/26/18 06/26/18 18:59 06:59 18:59 Intake Total 1100 / 1100 1200 / 1200 Balance 1100 / 1100 1200 / 1200 Weight 88.3 kg Intake: IV 1100 / 1100 1200 / 1200 NS Inj 1,000 ML @ 100 mls/hr IV 1000 / 1000 1000 / 1000 .CONT .Q10H A[facility]ER Rx#:[id number] LR 1000 mL Inj 1,000 ML @ 30 0 / 0 mls/hr IV.SIG .Q24H A[facility]ER Rx#: [id number] Ancef Inj 1,000 MG In NS Inj 100 / 100 200 / 200 100 ML @ 200 mls/hr IV.SIG Q8H A[facility]ER Rx#:[id number] Other: # Voids 5 1 Date of Last Bowel Movement 06/21/18 Narrative: GENERAL: NAD, A&Ox3 HEAD: Normocephalic. Scalp is bandaged, WELCOME CENTER AGENT shunt HAS BEEN REMOVED NECK: Supple, trachea midline. No lymphadenopathy. EYES: No scleral icterus. No injection or drainage. CARDIOVASCULAR: Regular rate and rhythm without murmurs, gallops, or rubs. S1, S2 NO S3 OR S4 RESPIRATORY: Breath sounds equal bilaterally. No accessory muscle use. GASTROINTESTINAL: Abdomen soft, non-tender, nondistended. MUSCULOSKELETAL: No cyanosis, or edema. SKIN: Warm and dry. NEURO: No focal neurological deficits. RIGHT UE HAND IS CONTRACTED Results - Labs CBC & Chem 7: 06/26/18 07:20 06/26/18 07:20 Laboratory Results - last 24 hr 06/25/18 06/25/18 06/25/18 09:52 09:52 09:52 WBC 8.8 RBC 4.70 Hgb 14.5 Hct 42.6 MCV 90.7 MCH 30.8 MCHC 34.0 RDW 15.5 Plt Count 218 MPV 7.4 Neut % (Auto) 82.7 H Lymph % (Auto) 10.4 Briscoe % (Auto) 6.7 Eos % (Auto) 0.0 Baso % (Auto) 0.2 Neut # (Auto) 7.3 Lymph # (Auto) 0.9 L Briscoe # (Auto) 0.6 Eos # (Auto) 0.0 Baso # (Auto) 0.0 WBC Differential . Differential Comment Auto diff final Sodium 135 L Potassium 3.9 Chloride 99 Carbon Dioxide 25.6 Anion Gap 10 BUN 8 Creatinine 0.83 Estimated GFR Greater than 89 POC Glucose Random Glucose 171 H Hemoglobin A1c Calcium 8.9 Phosphorus Magnesium Total Bilirubin 0.7 AST 13 L ALT 12 Alkaline Phosphatase 69 Total Protein 7.3 Albumin 3.7 TSH 0.629 Cancelled Free T4 06/25/18 06/25/18 06/25/18 11:15 11:15 11:15 WBC 8.9 RBC 4.54 Hgb 13.8 Hct 41.2 MCV 90.7 MCH 30.4 MCHC 33.5 RDW 15.4 Plt Count 195 MPV 7.5 Neut % (Auto) 80.8 H Lymph % (Auto) 11.2 Briscoe % (Auto) 7.5 Eos % (Auto) 0.1 Baso % (Auto) 0.4 Neut # (Auto) 7.2 Lymph # (Auto) 1.0 Briscoe # (Auto) 0.7 Eos # (Auto) 0.0 Baso # (Auto) 0.0 WBC Differential . Differential Comment Auto diff final Sodium 137 Potassium 4.0 Chloride 101 Carbon Dioxide 25.7 Anion Gap 10 BUN 9 Creatinine 0.81 Estimated GFR Greater than 89 POC Glucose Random Glucose 129 H Hemoglobin A1c 5.8 Calcium 8.5 Phosphorus 3.4 Magnesium 2.2 Total Bilirubin 0.5 AST 10 L ALT 13 Alkaline Phosphatase 66 Total Protein 7.0 Albumin 3.4 TSH Free T4 0.95 06/25/18 06/25/18 06/25/18 11:53 17:59 20:05 WBC RBC Hgb Hct MCV MCH MCHC RDW Plt Count MPV Neut % (Auto) Lymph % (Auto) Briscoe % (Auto) Eos % (Auto) Baso % (Auto) Neut # (Auto) Lymph # (Auto) Briscoe # (Auto) Eos # (Auto) Baso # (Auto) WBC Differential Differential Comment Sodium Potassium Chloride Carbon Dioxide Anion Gap BUN Creatinine Estimated GFR POC Glucose 100 86 157 H Random Glucose Hemoglobin A1c Calcium Phosphorus Magnesium Total Bilirubin AST ALT Alkaline Phosphatase Total Protein Albumin TSH Free T4 06/26/18 06/26/18 06/26/18 04:00 07:10 07:20 WBC 6.5 RBC 4.61 Hgb 14.0 Hct 41.6 MCV 90.2 MCH 30.4 MCHC 33.7 RDW 15.5 Plt Count 198 MPV 7.3 Neut % (Auto) 65.4 Lymph % (Auto) 25.3 Briscoe % (Auto) 7.7 Eos % (Auto) 0.7 Baso % (Auto) 0.9 Neut # (Auto) 4.3 Lymph # (Auto) 1.7 Briscoe # (Auto) 0.5 Eos # (Auto) 0.0 Baso # (Auto) 0.1 WBC Differential . Differential Comment Auto diff final Sodium Potassium Chloride Carbon Dioxide Anion Gap BUN Creatinine Estimated GFR POC Glucose 110 92 Random Glucose Hemoglobin A1c Calcium Phosphorus Magnesium Total Bilirubin AST ALT Alkaline Phosphatase Total Protein Albumin TSH Free T4 06/26/18 07:20 WBC RBC Hgb Hct MCV MCH MCHC RDW Plt Count MPV Neut % (Auto) Lymph % (Auto) Briscoe % (Auto) Eos % (Auto) Baso % (Auto) Neut # (Auto) Lymph # (Auto) Briscoe # (Auto) Eos # (Auto) Baso # (Auto) WBC Differential Differential Comment Sodium 138 Potassium 3.7 Chloride 104 Carbon Dioxide 22.8 Anion Gap 11 BUN 9 Creatinine 0.62 Estimated GFR Greater than 89 POC Glucose Random Glucose 90 Hemoglobin A1c Calcium 8.7 Phosphorus 3.8 Magnesium 2.0 Total Bilirubin 0.6 AST 15 ALT 12 Alkaline Phosphatase 62 Total Protein 6.9 Albumin 3.4 TSH Free T4 Microbiology 06/24/18 13:15 Other Acid Fast Bacilli Smear - Final No acid fast bacilli seen 06/24/18 13:14 Fluid - Other Acid Fast Bacilli Smear - Final No acid fast bacilli seen 06/24/18 13:15 Wound - Other Gram Stain - Final 06/24/18 13:15 Wound - Other Wound Culture - Preliminary No growth in 24 hours 06/24/18 13:15 Shunt Fluid Gram Stain - Final 06/24/18 13:15 Shunt Fluid CSF Culture - Preliminary No growth in 24 hours 06/24/18 13:14 Fluid - Other Fungal Smear - Final No fungal elements seen 06/24/18 13:15 Other Fungal Smear - Final No fungal elements seen - Procedures Ventriculoperitoneal shunt dislogement Date of procedure: 06/24/18 Procedure: Removal of ventriculoperitoneal shunt Surgeon: Ruben Hudson MD Media Professional: MARLENY Pathology: other (CSF for analysis and cultures) Operation and Findings: INTRAOPERATIVE FINDINGS:~ Clear cerebrospinal fluid. shunt catheter was pulled out of its wound and mechanically ruptured INDICATIONS FOR PROCEDURE: Mr Arellano is a 67 year old male with history of normal pressure hydrocephalus who presented with progressive gait imbalance and short term memory loss. He had chronic communicating hydrocephalus and his condition was getting progressively worse. He underwent evaluation with placement of a lumbar drain and cerebrospinal fluid drainage with very significant improvement in his symptoms. A ventriculoperitoneal shunt was placed. The patient has some cognitive and behavioral problems. He picket out his retroauricular incision and mechanically pulled out, and broke his shunt pulling the catheter outside the wound. The shunt was grossly contaminated. removal of the ventriculoperitoneal shunt was indicated. The [id number] details of the procedure, its indications, alternatives, risks , and potential complications of the surgery were fully discussed with the patient and his family. They fully understood. All their questions were answered. No guarantees were given. They voiced requesting the surgery and signed informed consent.They were offered the alternative of continuing nonsurgical treatment. DETAILS OF THE SURGICAL PROCEDURE: After the induction of general anesthesia, endotracheal intubation was performed. A Ayon catheter, bilateral BANDAR hose and sequential compression devices were placed and kept throughout the procedure. The patient was positioned supine on a 30-80 table with the head over a gel doughnut. All pressure points were carefully padded with eggcrate mattress. The right frontotemporal parietal area was shaved prepped and draped in the usual sterile fashion A small incision was made in the right frontal area and the ventricular catheter was expossed. The valve was disconnected from the epossed catheter and the catheter was pulled out. Due to the gross contamination of the system and risk for developing ventriculitis, thye ventricular catheter and the valve were removed. The incisions were irrigated with antibiotic solution. The skin incisions were closed using interrupted 3-0 Ethylon At the end of the procedure, the sponge, needle and instrument counts were all correct. The estimated blood was less than 10 cc. No blood transfusion was given. No intraoperative complications occurred. The patient received preoperative prophylactic antibiotics. The patient was then extubated and transferred to the recovery room in stable condition. Assessment and Plan - Plan 67-year-old male admitted secondary to outward migration of WEL[employer] C[employer]ENT shunt WEL[employer]E C[employer] AGENT shunt dislodgment Normal pressure hydrocephalus Neurosurgery consulted Patient will go to the OR today Await neurosurgical clearance prior to discharge Follow neurological status SP SHUNT REMOVAL ON 06-24 DC TO HOME ON PO KEFLEX History of angina Coronary artery disease No complaints of chest pain today Monitor clinically Continue baseline treatments History of alcohol abuse No recent use Follow clinically Diabetes mellitus type 2 Follow blood sugars Insulin sliding scale Diabetic diet Chronic right hand contracture Supportive care Continue range of motion exercises DVT prophylaxis SCDs LABS TODAY AM LABS PT AND OT MAY NEED SNF? VS [facility] RN AND PT AND CM DC TO HOME TODAY WITH [facility] KEFLEX 500MG PO QID FOR 10 DAYS NO NEED FOR NARCOTICS Code Status: FULL CODE Discussed Condition With: DC TO HOME WITH Edy FIGUEROA RN AND PT AND CM AND NEUROSURGERY Discharge Planning: DC TO HOME TODAY
--- NOTE | 2018-06-26 10:23 | P.DS ---
Date of admission: 06/24/18 07:02 Primary care physician: Candace Abdullahi DO Attending physician on discharge: Mervin Funes Anticipated date of discharge: 06/26/18 Brief History from admission: Mr. Alvarez is a 67-year-old male. He has a history of normal pressure hydrocephalus. PRINTER ASSISTANT shunt was previously placed on May 22, 2018. Patient has been doing well as an outpatient. However recently he has noted evidence that his PRINTER ASSISTANT shunt is migrating outward. He came to the hospital for this. Dr. Hudson is his neurosurgeon and patient will be taken to the OR today. He has no complaints when seen. No complaints of visual changes, nausea, headache, or fever. DS: Diagnosis - Discharge Diagnosis (1) Post-operative complication Status: Acute (2) Problem with medical care compliance Status: Chronic (3) CAD (coronary artery disease) Status: Chronic (4) Contracture, right hand Status: Chronic (5) Diabetes Status: Chronic (6) ETOH abuse Status: Chronic (7) Hx of CABG Status: Chronic (8) Hydrocephalus Status: Chronic (9) Impaired mobility and activities of daily living Status: Chronic (10) Diabetes mellitus Status: Chronic (11) EtOH dependence Status: Chronic (12) Hx of CABG Status: Chronic (13) Hydrocephalus Status: Chronic DS: Medications - Discharge Medications Prescriptions: amlodipine 10 mg PO DAILY #30 tab cephalexin [Keflex] 500 mg PO QID #56 cap folic acid 1 mg PO DAILY #30 tab hydralazine 10 mg PO TID #90 tab lisinopril 20 mg PO DAILY #30 tab metformin 500 mg PO DAILY #30 tab pioglitazone 30 mg PO DAILY #30 tab sennosides-docusate sodium [Senna Plus] 2 tab PO BID #120 tab tamsulosin 0.4 mg PO DAILY@18 #30 cap thiamine HCl (vitamin B1) 100 mg PO DAILY #30 tab DS: Summary Hospital Course: Mr. Alvarez is a 67-year-old male. He has a history of normal pressure hydrocephalus. PRINTER ASSISTANT shunt was previously placed on May 22, 2018. Patient has been doing well as an outpatient. However recently he has noted evidence that his PRINTER ASSISTANT shunt is migrating outward. He came to the hospital for this. Dr. Hudson is his neurosurgeon and patient will be taken to the OR today. He has no complaints when seen. No complaints of visual changes, nausea, headache, or fever. 06-25 HAD PRINTER ASSISTANT SHUNT REMOVED ON 06-[address] HUDSON WILL GET LABS PT AND OT IF STABLE HOME IN NEXT 24 TO 48HOURS VS SNF 06-26 cleared by NEUROSURGERY WILL DC TO HOME WITH HHC SWITCH TO PO KEFLEX AND DC TO HOME TODAY [facility] RN AND PT AND NEUROSURGERY DC TO HOME WILL DO FACE TO FACE HHC - Time Spent with Patient Total time spent providing and/or coordinating discharge services: Greater than 30 minutes Exam Vital signs: Vital Signs 06/25/18 12:00 06/25/18 16:00 06/25/18 20:00 Temperature 98.3 F 97.2 F L 97.8 F Pulse Rate 73 78 77 Respiratory Rate 16 16 16 Blood Pressure 138/68 140/87 118/56 L Pulse Oximetry 98 99 98 06/26/18 00:00 06/26/18 04:00 06/26/18 07:48 Temperature 98.4 F 97.6 F 97.7 F Pulse Rate 69 64 63 Respiratory Rate 16 18 14 Blood Pressure 149/81 H 149/70 H 139/74 Pulse Oximetry 97 97 100 Intake & Output 06/25/18 06/26/18 06/26/18 18:59 06:59 18:59 Intake Total 1100 / 1100 1200 / 1200 Balance 1100 / 1100 1200 / 1200 Weight 88.3 kg Intake: IV 1100 / 1100 1200 / 1200 NS Inj 1,000 ML @ 100 mls/hr IV 1000 / 1000 1000 / 1000 .CONT .Q10H [facility] Rx#:[id number] LR 1000 mL Inj 1,000 ML @ 30 0 / 0 mls/hr IV.SIG .Q24H A[facility]ER Rx#: [id number] Ancef Inj 1,000 MG In NS Inj 100 / 100 200 / 200 100 ML @ 200 mls/hr IV.SIG Q8H ASHER Rx#:[id number] Other: # Voids 5 1 Date of Last Bowel Movement 06/21/18 Narrative: GENERAL: NAD, A&Ox3 HEAD: Normocephalic. Scalp is bandaged, PRINTER ASSISTANT shunt HAS BEEN REMOVED NECK: Supple, trachea midline. No lymphadenopathy. EYES: No scleral icterus. No injection or drainage. CARDIOVASCULAR: Regular rate and rhythm without murmurs, gallops, or rubs. S1, S2 NO S3 OR S4 RESPIRATORY: Breath sounds equal bilaterally. No accessory muscle use. GASTROINTESTINAL: Abdomen soft, non-tender, nondistended. MUSCULOSKELETAL: No cyanosis, or edema. SKIN: Warm and dry. NEURO: No focal neurological deficits. RIGHT UE HAND IS CONTRACTED Results Procedures completed during hospitalization: Ventriculoperitoneal shunt dislogement Date of procedure: 06/24/18 Procedure: Removal of ventriculoperitoneal shunt Surgeon: Ruben Hudson MD Rules Examiner: MARLENY Pathology: other (CSF for analysis and cultures) Operation and Findings: INTRAOPERATIVE FINDINGS:~ Clear cerebrospinal fluid. shunt catheter was pulled out of its wound and mechanically ruptured INDICATIONS FOR PROCEDURE: Mr Arellano is a 67 year old male with history of normal pressure hydrocephalus who presented with progressive gait imbalance and short term memory loss. He had chronic communicating hydrocephalus and his condition was getting progressively worse. He underwent evaluation with placement of a lumbar drain and cerebrospinal fluid drainage with very significant improvement in his symptoms. A ventriculoperitoneal shunt was placed. The patient has some cognitive and behavioral problems. He picket out his retroauricular incision and mechanically pulled out, and broke his shunt pulling the catheter outside the wound. The shunt was grossly contaminated. removal of the ventriculoperitoneal shunt was indicated. The [id number] details of the procedure, its indications, alternatives, risks , and potential complications of the surgery were fully discussed with the patient and his family. They fully understood. All their questions were answered. No guarantees were given. They voiced requesting the surgery and signed informed consent.They were offered the alternative of continuing nonsurgical treatment. DETAILS OF THE SURGICAL PROCEDURE: After the induction of general anesthesia, endotracheal intubation was performed. A Ayon catheter, bilateral BANDAR hose and sequential compression devices were placed and kept throughout the procedure. The patient was positioned supine on a 30-80 table with the head over a gel doughnut. All pressure points were carefully padded with eggcrate mattress. The right frontotemporal parietal area was shaved prepped and draped in the usual sterile fashion A small incision was made in the right frontal area and the ventricular catheter was expossed. The valve was disconnected from the epossed catheter and the catheter was pulled out. Due to the gross contamination of the system and risk for developing ventriculitis, thye ventricular catheter and the valve were removed. The incisions were irrigated with antibiotic solution. The skin incisions were closed using interrupted 3-0 Ethylon At the end of the procedure, the sponge, needle and instrument counts were all correct. The estimated blood was less than 10 cc. No blood transfusion was given. No intraoperative complications occurred. The patient received preoperative prophylactic antibiotics. The patient was then extubated and transferred to the recovery room in stable condition. Completed studies during hospitalization: Laboratory Results WBC 6.5 th/mm3 (4.0-11.0) 06/26/18 07:20 RBC 4.61 mil/mm3 (4.50-5.90) 06/26/18 07:20 Hgb 14.0 gm/dL (13.0-17.0) 06/26/18 07:20 Hct 41.6 % (39.0-51.0) 06/26/18 07:20 MCV 90.2 fL (80.0-100.0) 06/26/18 07:20 MCH 30.4 pg (27.0-34.0) 06/26/18 07:20 MCHC 33.7 % (32.0-36.0) 06/26/18 07:20 RDW 15.5 % (11.6-17.2) 06/26/18 07:20 Plt Count 198 th/mm3 (150-450) 06/26/18 07:20 MPV 7.3 fL (7.0-11.0) 06/26/18 07:20 Neut % (Auto) 65.4 % (16.0-70.0) 06/26/18 07:20 Lymph % (Auto) 25.3 % (9.0-44.0) 06/26/18 07:20 Sullivan % (Auto) 7.7 % (0.0-8.0) 06/26/18 07:20 Eos % (Auto) 0.7 % (0.0-4.0) 06/26/18 07:20 Baso % (Auto) 0.9 % (0.0-2.0) 06/26/18 07:20 Neut # (Auto) 4.3 th/mm3 (1.8-7.7) 06/26/18 07:20 Lymph # (Auto) 1.7 th/mm3 (1.0-4.8) 06/26/18 07:20 Sullivan # (Auto) 0.5 th/mm3 (0.0-0.9) 06/26/18 07:20 Eos # (Auto) 0.0 th/mm3 (0.0-0.4) 06/26/18 07:20 Baso # (Auto) 0.1 th/mm3 (0.0-0.2) 06/26/18 07:20 WBC Differential . 06/26/18 07:20 Differential Comment Auto diff final 06/26/18 07:20 PT 10.3 sec (9.8-11.6) 06/24/18 06:12 INR 1.0 Ratio 06/24/18 06:12 APTT 28.3 sec (24.3-30.1) 06/24/18 06:12 Sodium 138 meq/L (136-145) 06/26/18 07:20 Potassium 3.7 meq/L (3.5-5.1) 06/26/18 07:20 Chloride 104 meq/L (98-107) 06/26/18 07:20 Carbon Dioxide 22.8 meq/L (21.0-32.0) 06/26/18 07:20 Anion Gap 11 meq/L (5-15) 06/26/18 07:20 BUN 9 mg/dL (7-18) 06/26/18 07:20 Creatinine 0.62 mg/dL (0.60-1.30) 06/26/18 07:20 Estimated GFR Greater than 89 mL/min (>89) 06/26/18 07:20 POC Glucose 92 mg/dl (68-110) 06/26/18 07:10 Random Glucose 90 mg/dL (74-106) 06/26/18 07:20 Hemoglobin A1c 5.8 % (4.3-6.0) 06/25/18 11:15 Calcium 8.7 mg/dL (8.5-10.1) 06/26/18 07:20 Phosphorus 3.8 mg/dL (2.5-4.9) 06/26/18 07:20 Magnesium 2.0 mg/dL (1.5-2.5) 06/26/18 07:20 Total Bilirubin 0.6 mg/dL (0.2-1.0) 06/26/18 07:20 AST 15 U/L (15-37) 06/26/18 07:20 ALT 12 U/L (12-78) 06/26/18 07:20 Alkaline Phosphatase 62 U/L (45-117) 06/26/18 07:20 Total Protein 6.9 g/dL (6.4-8.2) 06/26/18 07:20 Albumin 3.4 g/dL (3.4-5.0) 06/26/18 07:20 TSH 0.629 uIU/mL (0.358-3.740) 06/25/18 09:52 Free T4 0.95 ng/dL (0.76-1.46) 06/25/18 11:15 CSF Volume (1) 4.5 mL 06/24/18 13:14 CSF Supernat Color (1) Clear (Clear) 06/24/18 13:14 CSF Gross Blood (1) ND 06/24/18 13:14 CSF WBC (1) 0 /mm3 (0-10) 06/24/18 13:14 CSF RBC (1) 10 /mm3 (None) H 06/24/18 13:14 CSF Neutrophils % 0 % 06/24/18 13:14 CSF Glucose 58 mg/dL (40-80) 06/24/18 13:14 CSF Total Protein 31.1 mg/dL (15.0-45.0) 06/24/18 13:14 Labs on day of discharge: Labs from last 24 hours 06/26/18 06/26/18 06/26/18 07:20 07:20 07:10 WBC 6.5 RBC 4.61 Hgb 14.0 Hct 41.6 MCV 90.2 MCH 30.4 MCHC 33.7 RDW 15.5 Plt Count 198 MPV 7.3 Neut % (Auto) 65.4 Lymph % (Auto) 25.3 Sullivan % (Auto) 7.7 Eos % (Auto) 0.7 Baso % (Auto) 0.9 Neut # (Auto) 4.3 Lymph # (Auto) 1.7 Sullivan # (Auto) 0.5 Eos # (Auto) 0.0 Baso # (Auto) 0.1 WBC Differential . Differential Comment Auto diff final Sodium 138 Potassium 3.7 Chloride 104 Carbon Dioxide 22.8 Anion Gap 11 BUN 9 Creatinine 0.62 Estimated GFR Greater than 89 POC Glucose 92 Random Glucose 90 Hemoglobin A1c Calcium 8.7 Phosphorus 3.8 Magnesium 2.0 Total Bilirubin 0.6 AST 15 ALT 12 Alkaline Phosphatase 62 Total Protein 6.9 Albumin 3.4 TSH Free T4 06/26/18 06/25/18 06/25/18 04:00 20:05 17:59 WBC RBC Hgb Hct MCV MCH MCHC RDW Plt Count MPV Neut % (Auto) Lymph % (Auto) Sullivan % (Auto) Eos % (Auto) Baso % (Auto) Neut # (Auto) Lymph # (Auto) Sullivan # (Auto) Eos # (Auto) Baso # (Auto) WBC Differential Differential Comment Sodium Potassium Chloride Carbon Dioxide Anion Gap BUN Creatinine Estimated GFR POC Glucose 110 157 H 86 Random Glucose Hemoglobin A1c Calcium Phosphorus Magnesium Total Bilirubin AST ALT Alkaline Phosphatase Total Protein Albumin TSH Free T4 06/25/18 06/25/18 06/25/18 11:53 11:15 11:15 WBC RBC Hgb Hct MCV MCH MCHC RDW Plt Count MPV Neut % (Auto) Lymph % (Auto) Sullivan % (Auto) Eos % (Auto) Baso % (Auto) Neut # (Auto) Lymph # (Auto) Sullivan # (Auto) Eos # (Auto) Baso # (Auto) WBC Differential Differential Comment Sodium 137 Potassium 4.0 Chloride 101 Carbon Dioxide 25.7 Anion Gap 10 BUN 9 Creatinine 0.81 Estimated GFR Greater than 89 POC Glucose 100 Random Glucose 129 H Hemoglobin A1c 5.8 Calcium 8.5 Phosphorus 3.4 Magnesium 2.2 Total Bilirubin 0.5 AST 10 L ALT 13 Alkaline Phosphatase 66 Total Protein 7.0 Albumin 3.4 TSH Free T4 0.95 06/25/18 06/25/18 06/25/18 11:15 09:52 09:52 WBC 8.9 RBC 4.54 Hgb 13.8 Hct 41.2 MCV 90.7 MCH 30.4 MCHC 33.5 RDW 15.4 Plt Count 195 MPV 7.5 Neut % (Auto) 80.8 H Lymph % (Auto) 11.2 Sullivan % (Auto) 7.5 Eos % (Auto) 0.1 Baso % (Auto) 0.4 Neut # (Auto) 7.2 Lymph # (Auto) 1.0 Sullivan # (Auto) 0.7 Eos # (Auto) 0.0 Baso # (Auto) 0.0 WBC Differential . Differential Comment Auto diff final Sodium 135 L Potassium 3.9 Chloride 99 Carbon Dioxide 25.6 Anion Gap 10 BUN 8 Creatinine 0.83 Estimated GFR Greater than 89 POC Glucose Random Glucose 171 H Hemoglobin A1c Calcium 8.9 Phosphorus Magnesium Total Bilirubin 0.7 AST 13 L ALT 12 Alkaline Phosphatase 69 Total Protein 7.3 Albumin 3.7 TSH Cancelled 0.629 Free T4 06/25/18 09:52 WBC 8.8 RBC 4.70 Hgb 14.5 Hct 42.6 MCV 90.7 MCH 30.8 MCHC 34.0 RDW 15.5 Plt Count 218 MPV 7.4 Neut % (Auto) 82.7 H Lymph % (Auto) 10.4 Sullivan % (Auto) 6.7 Eos % (Auto) 0.0 Baso % (Auto) 0.2 Neut # (Auto) 7.3 Lymph # (Auto) 0.9 L Sullivan # (Auto) 0.6 Eos # (Auto) 0.0 Baso # (Auto) 0.0 WBC Differential . Differential Comment Auto diff final Sodium Potassium Chloride Carbon Dioxide Anion Gap BUN Creatinine Estimated GFR POC Glucose Random Glucose Hemoglobin A1c Calcium Phosphorus Magnesium Total Bilirubin AST ALT Alkaline Phosphatase Total Protein Albumin TSH Free T4 Preliminary micro results at discharge 06/24/18 13:15 Wound Culture - Preliminary Wound - Other No growth in 24 hours 06/24/18 13:15 CSF Culture - Preliminary Shunt Fluid No growth in 24 hours Discharge Plan - Discharge Disposition Patient Disposition: /Home Health Service - Discharge Condition Condition: Good - Discharge Order Discharge Orders: Discharge Order (Routine); Ordered 06/26/18 Ordered By: Mervin Funes Neurosurgery Clear for Discharge (Routine); Ordered 06/26/18 Ordered By: Maryse Gutiérrez - Discharge Details Anticipated Discharge Date: 06/26/18 Discharge Comment: DC TO HOME WITH [facility] - Physicians Team Primary Care Provider: Candace Abdullahi Attending Provider: Mervin Funes Other Providers: Ruben Hudson MD
== END 2018-06-26 12:49 | disposition home health service (06) ==
LOC: NEPE 04:52 → NEDA 07:02 → N05 07:33
PROVIDERS: ADMIT Hospitalist; ATTEND Hospitalist